=== PATIENT | male | born 1960 | race Caucasian/White ===

== ENCOUNTER 2022-06-16 11:23 | Outpatient (CLI) | payer BC, SELFPAY ==
[2022-06-16 21:34] LABS: Chloride* 86 mmol/L (96-114); Potassium* 5.7 mmol/L (3.6-5.1); Sodium* 126 mmol/L (135-149)
[2022-06-16 21:36] LABS: Cholesterol* 165 mg/dL (90-199)
[2022-06-16 21:37] LABS: Alanine Aminotransferase* 32 U/L (4-50); Alkaline Phosphatase* 68 U/L (40-150); Aspartate Amino Transferase* 39 U/L (12-35); Bilirubin Total* 0.9 mg/dL (0.1-1.5); Blood Urea Nitrogen* 12 mg/dL (7-30); Carbon Dioxide* 30 mmol/L (20-32); Creatinine* 0.6 mg/dL (0.5-1.5); Estimated Glomerular Filt Rate 111 ml/min; Glucose* 89 mg/dL (60-115); Total Protein* 7.7 g/dL (6.0-8.3); Triglycerides* 71 mg/dL (40-149)
[2022-06-16 21:38] LABS: Calcium* 9.6 mg/dL (8.4-10.6); HDL Cholesterol* 75 mg/dL (>=40); LDL Cholesterol Calculated 76 mg/dL (<100)
[2022-06-16 22:05] LABS: PSA Screen* 0.78 ng/mL (0.10-4.00)
[2022-06-16 22:10] LABS: TSH With Reflex to FT4* 0.318 uIU/mL (0.270-4.200)
[2022-06-16 22:22] LABS: Vitamin B12* 742 pg/mL (243-894)
== END 2022-06-16 11:24 | disposition home or self-care (01) ==
PROVIDERS: PCP Physician Assistant Medical; Visit Provider Physician Assistant Medical
DX: E03.9 Hypothyroidism, unspecified (principal); E78.5 Hyperlipidemia, unspecified; F32.A Depression, unspecified; I10 Essential (primary) hypertension; N40.0 Benign prostatic hyperplasia without lower urinary tract symptoms; R41.3 Other amnesia; Z12.5 Encounter for screening for malignant neoplasm of prostate
CPT/HCPCS: 80053; 80061; 82607; 84153; 84443

== ENCOUNTER 2022-07-22 07:53 | Outpatient (CLI) | payer BC, SELFPAY ==
[2022-07-22 14:25] LABS: Chloride* 101 mmol/L (96-114); Sodium* 140 mmol/L (135-149)
[2022-07-22 14:28] LABS: Carbon Dioxide* 33 mmol/L (20-32); Creatinine* 0.6 mg/dL (0.5-1.5); Estimated Glomerular Filt Rate 111 ml/min
[2022-07-22 14:29] LABS: Blood Urea Nitrogen* 10 mg/dL (7-30); Calcium* 9.1 mg/dL (8.4-10.6); Glucose* 79 mg/dL (60-115)
== END 2022-07-22 07:54 | disposition home or self-care (01) ==
PROVIDERS: PCP Physician Assistant Medical; Visit Provider Physician Assistant Medical
DX: E87.1 Hypo-osmolality and hyponatremia (principal)
CPT/HCPCS: 80048

== ENCOUNTER 2022-08-03 20:56 | Emergency (ER) | payer BC, SELFPAY ==
[2022-08-03 21:12] VITALS: BP 172/105; PULSE 82; RESP 16; TEMP 37.4; O2SAT 97; BMI 28.7
--- NOTE | 2022-08-03 21:50 | CRLHL7_ITS ---
For Patients: As a result of the Century Cures Act, medical imaging exams and procedure reports are released immediately into your electronic medical record. You may view this report before your referring provider. If you have questions, please contact your health care provider. Indication: Left forearm pain. Technique: Ultrasound venous duplex upper left extremity. Compression venous exam was performed using tucker-scale, color Doppler, and spectral Doppler imaging. Comparison: None. Findings/impression: The left internal jugular, subclavian, and axillary veins are patent with normal waveforms. The brachial, basilic, and cephalic veins are fully compressible. Within the intramuscular aspect of the likely brachioradialis, there is a 3.8 x 1.6 x 2.0 heterogeneous echogenic focus without discrete associated vascularity. This is indeterminate however leading differential considerations favor intramuscular hematoma, while other differential considerations include phlegmonous change. An aggressive approach would be to perform further evaluation with dedicated non emergent MSK protocol MRI mildly more conservative approach would be to perform clinical follow-up to assess for improving pain and sonographic reimaging to insure resolution. Dictated by Moise Rowley MD @ 08/04/2022 12:25:20 AM (Electronically Signed)
[2022-08-03 22:21] LABS: Chloride* 99 mmol/L (96-114); Potassium* 4.1 mmol/L (3.6-5.1); Sodium* 137 mmol/L (135-149)
[2022-08-03 22:24] LABS: Basophils Absolute Auto 0.04 K/uL (0.00-0.30); Basophils Percent Auto 0.5 % (0.0-3.0); Blood Urea Nitrogen* 11 mg/dL (7-30); Carbon Dioxide* 32 mmol/L (20-32); Creatinine* 0.6 mg/dL (0.5-1.5); Eosinophils Absolute Auto 0.17 K/uL (0.00-0.50); Est. Creatinine Clearance* 135.19; Estimated Glomerular Filt Rate 111 ml/min; Glucose* 101 mg/dL (60-115); Hematocrit 40.4 % (37.0-53.0); Hemoglobin* 14.1 gm/dL (13.5-17.5); Immature Granulocytes Abs Auto 0.05 K/uL (0.00-0.30); Immature Granulocytes Pct Auto 0.6 %; Lymphocytes Percent Auto 11.9 % (20-44); Mean Corpuscular HGB Conc 35 gm/dL (32-36); Mean Corpuscular Hemoglobin 31 pg (26-34); Mean Corpuscular Volume 87 fL (80-100); Monocytes Percent Auto 10.6 % (0.0-11.0); Neutrophils Percent Auto 74.4 % (42.0-72.0); Platelet Count* 280 K/uL (140-440); RDW Coefficient of Variation % 12.4 % (11.5-15.5); Red Blood Count 4.62 m/uL (4.30-5.90); White Blood Count* 8.37 K/uL (4.50-11.00)
[2022-08-03 22:25] LABS: Calcium* 9.2 mg/dL (8.4-10.6); Slide Review Reflex No
--- NOTE | 2022-08-03 22:50 | ED_ITS ---
HPI - General Adult General Chief complaint: Extremity Pain/Injury, Upper Stated complaint: Possible blood clot in L arm Time Seen by Provider: 08/03/22 21:50 History of Present Illness HPI narrative: Pt is a 62 year old gentleman who presents with pain and echymosis over the left anterior forearm. Pt remembers no trauma. He has no history of blood clots. No shortness of breath. No bony stiffness. No skin erythema. Pain is dull and mild. Pt's area of echymosis has been present for the past 2 days and is 4X4 cm in diameter. No treatments prior to arrival. Pt also remarks that he has chronic ankle swelling for the past several months. Worse at night. He states that his provider is aware of this and that it is not an acute problem. Related Data Home Medications Medication Instructions Recorded Confirmed aspirin 81 mg tablet,delayed 81 mg PO QDAY 03/03/22 08/03/22 release Previous Rx's Medication Instructions Recorded levothyroxine 125 mcg tablet 125 mcg PO QDAY #90 tabs 05/20/22 simvastatin 20 mg tablet 20 mg PO QPM #90 tabs 05/20/22 fluoxetine 20 mg capsule 20 mg PO QDAY #90 caps 06/16/22 amlodipine 5 mg tablet 5 mg PO QDAY #90 tabs 07/10/22 lisinopril 30 mg tablet 30 mg PO QDAY #90 tabs 07/21/22 metoprolol succinate 25 mg 25 mg PO QDAY #30 tabs 07/24/22 tablet,extended release 24 hr Allergies Allergy/AdvReac Type Severity Reaction Status Date / Time No Known Allergies Allergy Unknown Verified 08/03/22 21:17 Review of Systems Status of ROS: Reports: 10 or more systems reviewed and unremarkable except as noted in History and below [facility] Medical History 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) Diverticulitis of intestine (11/09/12) Surgical History History of bilateral inguinal hernia repair (11/10/12) History of colonoscopy History of hernia repair History of knee surgery History of lobectomy of lung History of spinal surgery Social History (Updated 06/11/22 @ 12:36 by Pauline Abdi) Narrative: Does not use illicit drugs Former smoker Rarely consumes alcohol Smoking Status: Former smoker Second hand tobacco smoke exposure: No How often do you have a drink containing alcohol: 2-3 times a week How many standard drinks containing alcohol do you have on a typical day: 5 or 6 AUDIT-C Alcohol total score: 5 Non-prescribed substance use: denies use Little interest or pleasure in doing things: not at all Feeling down, depressed, or hopeless: not at all Exam Narrative: Exam Narrative: EXAM GENERAL: Patient appears comfortable and well. EYES: No scleral icterus. ENT: Tympanic membranes and oropharynx normal. THYROID: no thyroid nodules or thyromegaly. LYMPH: No supraclavicular or cervical lymphadenopathy. SKIN: Visible skin seen during exam normal or with benign process only. EXT: Trace lower extremity edema noted. Area of echymosis noted in the anterior forearm on the left as described above no other acute findings. Good circulation no neuromuscular defects. HEART: Regular rate and rhythm with no murmurs, rubs, or gallops. LUNGS: Clear to auscultation bilaterally with no crackles or wheezes. ABD: Soft, non tender, non distended. PSYCH: Good eye contact, speech is not pressured. Const: Vital Signs, click to edit/add: Vital Signs - 24 hr 08/03/22 21:12 08/04/22 00:19 Temperature 99.3 F Pulse Rate [Right Pulse Oximeter] 82 70 Respiratory Rate 16 16 Blood Pressure [Ri ght Upper Arm] 172/105 H 147/10 H Pulse Oximetry 97 95 Oxygen Delivery Me thod Room Air Course Course Hospital Course: Venous ultrasound. CBC, BMP ordered. Reevaluation(s) Reevaluation #1: CBC BMP reviewed by me are reassuring. Venous Ultrasound showed no DVT but likely a hematoma. Follow up clinically or by MRI recommended by radiology. Time: 00:31 Vital Signs Vital signs: Initial Vital Signs Temperature 99.3 F 08/03/22 21:12 Temperature Source Temporal Artery Scan 08/03/22 21:12 Pulse Rate 82 08/03/22 21:12 Respiratory Rate 16 08/03/22 21:12 Blood Pressure 172/105 H 08/03/22 21:12 Blood Pressure Mean 127 08/03/22 21:12 Blood Pressure Position Sitting 08/03/22 21:12 Pulse Oximetry 97 08/03/22 21:12 Oxygen Delivery Method 08/03/22 21:12 Vital Signs Temperature 99.3 F 08/03/22 21:12 Pulse Rate 82 08/03/22 21:12 Respiratory Rate 16 08/03/22 21:12 Blood Pressure 172/105 H 08/03/22 21:12 Pulse Oximetry 97 08/03/22 21:12 Oxygen Delivery Method 08/03/22 21:12 Temperature 99.3 F 08/03/22 21:12 Pulse Rate 70 08/04/22 00:19 Respiratory Rate 16 08/04/22 00:19 Blood Pressure 147/10 H 08/04/22 00:19 Pulse Oximetry 95 08/04/22 00:19 Oxygen Delivery Method 08/03/22 21:12 Medical Decision Making MDM Narrative Medical decision making narrative: Pt is a 62 year old gentleman who presents with an area of bruising and echymosis in his left forearm. Labs reassuring. Venous Ultrasound shows no DVT but likely a hematoma. PCP follow up with possible MRI recommended. Exam shows mild lower extremity edema as well which is chronic. Pt's exam and vitals otherwise normal. PCP follow up. Lab Data Labs: Lab Results 08/03/22 08/03/22 Range/Units 22:01 22:01 WBC 8.37 (4.50-11.00) K/uL RBC 4.62 (4.30-5.90) m/uL Hgb 14.1 (13.5-17.5) gm/dL Hct 40.4 (37.0-53.0) % MCV 87 (80-100) fL MCH 31 (26-34) pg MCHC 35 (32-36) gm/dL RDW Coeff of Frances 12.4 (11.5-15.5) % Plt Count 280 (140-440) K/uL Neut % (Auto) 74.4 H (42.0-72.0) % Lymph % (Auto) 11.9 L (20-44) % [place] % (Auto) 10.6 (0.0-11.0) % Eos % (Auto) 2.0 (0.0-7.0) % Baso % (Auto) 0.5 (0.0-3.0) % Neut # (Auto) 6.20 (1.7-7.0) K/uL Lymph # (Auto) 1.00 (0.90-2.90) K/uL [place] # (Auto) 0.90 (0.00-0.90) K/UL Eos # (Auto) 0.17 (0.00-0.50) K/uL Baso # (Auto) 0.04 (0.00-0.30) K/uL Sodium 137 (135-149) mmol/L Potassium 4.1 (3.6-5.1) mmol/L Chloride 99 (96-114) mmol/L Carbon Dioxide 32 (20-32) mmol/L BUN 11 (7-30) mg/dL Creatinine 0.6 (0.5-1.5) mg/dL Estimated Creat Clear 135.19 Estimated GFR 111 ml/min Glucose 101 (60-115) mg/dL Calcium 9.2 (8.4-10.6) mg/dL Discharge Plan Discharge Clinical Impression: Hematoma Condition: Stable Instructions: Hematoma (ED) Additional Instructions: Warm compresses Tylenol as needed Primary care follow up with MRI if symptoms do not improve. Activity Level: No Restrictions Discharge Diet: Regular Prescriptions: No Action fluoxetine 20 mg capsule 20 mg PO QDAY Qty: 90 3RF aspirin 81 mg tablet,delayed release (DR/EC) 81 mg PO QDAY levothyroxine 125 mcg tablet 125 mcg PO QDAY Qty: 90 0RF simvastatin 20 mg tablet 20 mg PO QPM Qty: 90 0RF amlodipine 5 mg tablet 5 mg PO QDAY Qty: 90 3RF lisinopril 30 mg tablet 30 mg PO QDAY Qty: 90 0RF metoprolol succinate 25 mg tablet extended release 24 hr 25 mg PO QDAY Qty: 30 0RF Follow Up/Referrals: Elin Peterson PA-C [Primary Care Provider] - Stand Alone Forms: MyHealth Info Instructions
[2022-08-04 00:19] VITALS: BP 147/10; PULSE 70; RESP 16; O2SAT 95
== END 2022-08-04 00:44 | disposition home or self-care (01) ==
PROVIDERS: Emergency Provider Internal Medicine; PCP Physician Assistant Medical
DX: S50.12XA Contusion of left forearm, initial encounter (principal)
CPT/HCPCS: 36415; 80048; 85025; 93971; 99283; 99284

== ENCOUNTER 2022-08-07 13:44 | Outpatient (CLI) | payer BC, SELFPAY | END 2022-08-07 13:45 | disposition home or self-care (01) | LOC: RAD 13:44 | PROVIDERS: PCP Physician Assistant Medical; Visit Provider Internal Medicine | DX: I77.810 Thoracic aortic ectasia (principal) | CPT/HCPCS: 93306 ==

== ENCOUNTER 2023-06-01 08:01 | Outpatient (CLI) | payer BC, SELFPAY | END 2023-06-01 08:02 | disposition home or self-care (01) | LOC: NFLDREF 06-03 16:43 | PROVIDERS: PCP Physician Assistant Medical; Referring Provider Physician Assistant Medical; Visit Provider Physician Assistant Medical | DX: E03.9 Hypothyroidism, unspecified (principal); E78.5 Hyperlipidemia, unspecified; I10 Essential (primary) hypertension; F32.A Depression, unspecified | CPT/HCPCS: 80053; 80061; 84443 ==

== ENCOUNTER 2023-09-16 13:22 | Outpatient (CLI) | payer BC, SELFPAY ==
--- OUTSIDE RECORDS SUMMARY | 2023-09-16 13:24 | XMS_ITS | Referral Summary ---
Author Name Unknown Organization [facility] Address [address] [place] [address] Care Team Providers Care Car Wash Manager Name Role Phone Gerardonovember Primary Care Provider Trupti Denton MD Unavailable Encounters Date Type Department Care Team Description 09/15/2023 Telephone [facility] [address] [address] Trupti Denton MD 08/11/2023 MyC Medical Advice [facility] [address] [address] Ayden Roberson 07/09/2023 Travel from Last 3 Months Allergies Active Allergy Reactions Criticality Noted Date Comments No Known Drug Allergy 05/11/2011 Medications Medication Sig Dispensed Refills Start Date End Date Status lisinopril (PRINIVIL,ZESTRIL) 20 MG tablet Take 20 mg by mouth daily. 0 Active simvastatin (ZOCOR) 20 MG tablet Take by mouth At Bedtime. 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 Overview: Added automatically from request for surgery [id number] Cancer of base of tongue 09/14/2011 Head and neck cancer 10/13/2010 Social History Tobacco Use Types Packs/Day Years Used Date Smoking Tobacco: Former Cigarettes 0 5 Cigars Smokeless Tobacco: Never Tobacco Cessation:Counseling Given: No Comments:very light smoker Alcohol Use Standard Drinks/Week Comments Yes 0 (1 standard drink = 0.6 oz pur e alcohol) PHQ-2 Answer Date Recorded PHQ-2 Score 0 01/13/2022 Adolescent Education Answer Date Record ed Getting School Help Needed Not on file 05/11 Sex and Gender Information Value Date Recorded Sex Assigned at Male 11/25/2021 4:45 PM CDT Gender Identity Male 11/25/2021 4:45 PM CDT Sexual Orientation Straight 11/25/2021 4: 45 PM CDT Last Filed Vital Signs Vital Sign Reading Time Taken Comments Blood Pressure 166/106 06/01/2022 1:01 PM CDT Pulse 94 06/01/2022 1:01 PM CDT Temperature 36.7 ??C (98 ??F) 01/20/2022 11:54 AM CDT Respiratory Rate 16 06/01/2022 1:01 PM CDT Oxygen Saturation 98% 06/01/2022 1:01 PM CDT Inhaled Oxygen Concentration - - Weight 93.7 kg (206 lb 9.6 oz) 06/01/2022 1:01 P M CDT Height 177.8 cm (5' 10) 06/01/2022 1:01 PM CDT Body Mass Index 29.64 06/01/2022 1:01 PM CDT Plan of Treatment Upcoming Encounters Date Type Department Care Team (Late st Contact Info) Description 03/14/2024 2:30 PM CDT Office Visit [facility] [address] 4[address] [place] [address] Trupti Denton MD [address] [place] [address] Care Teams Car Wash Manager Relationship Specialty Start Date End Date November [place] [id number] [facility] [address] [place], [place] [id number] PCP - General 01/12/11 Trupti Denton MD [address] [place] [address] Assigned Surgical Provider 02/07/22
--- OUTSIDE RECORDS SUMMARY | 2023-09-16 13:24 | XMS_ITS | Continuity of Care Document ---
Author Name Unknown Organization [facility] Address [address] [place] [address] Phone Care Team Providers Care Human Resources Project Coordinator Name Role Phone Yanelis SHEFFIELD, Carmen Unavailable Unavailable Allergies, Adverse Reactions, Alerts Substance Reaction Status Criticality No Known Allergies Active No Inform ation Medications Medication Instructions Dosage Effective Dates (start - stop) Status Comments AMLODIPINE BESYLATE (unknown strength) Not Available - Active FLUOXETINE HCL (unknown strength) Not Available - Active LEVOTHYROXINE SODIUM (unknown strength) Not Available - Active HYDROCHLOROTHIAZIDE (unknown strength) Not Available - Active ASPIRIN (unknown strength) Not Available - Active SIMVASTATIN (unknown strength) Not Available - Active LISINOPRIL (unknown strength) Not Available - Active CARVEDILOL (unknown strength) Not Available - Active FUROSEMIDE (unknown strength) Not Available - Active Procedures Procedure Date Office/Outpatient Visit,Est, Mod 2023 Office/Outpatient Visit,Est, Low 2022 ACDF - Anterior Cervical Discectomy and Fusion - PA ACDF - Additonal Level - PA Anterior Instrumentation, 2-3 Segments - PA ACDF - Anterior Cervical Discectomy and Fusion ACDF - Additonal Level(s) Anterior Instrumentation, 2-3 Segments O Allograft, Structural Office/Outpatient Visit,New, Mod 2022 Advance Directives Directive Yes / No Effective Date File Name No Information Encounters Encounter Description Practice Location Reason(s) For Visit Diagnoses Date Provider Providers Copied on Encounter [facility], [address], [place], [place], [id number], [place] tel:[phone] No Information 4 Mehbod Amir. [facility], [address], [place], [place], [id number] , [place]. [phone] Office/Outpat ient Visit,Est, Mod [facility], [address], [place], [place], [id number], [place] tel:[phone] [facility] Spinal stenosis, cervical region 4 Mehbod Amir. [facility], [address], [place], [place], [id number] , [place]. [phone] Referring Provider: Moshe Ortiz [facility] [place], [address]. tel:[phone] Office/Outpat ient Visit,Est, Low [facility], [address], [place], [place], [id number], [place] tel:[phone] [facility] Spinal [facility], cervical region 3 Mehbod Amir. [facility], [address], [place], [place], [id number] , [place]. tel:[phone] Referring Provider: Moshe Ortiz [facility] [place], [address]. tel:[phone] [facility], [address], [place], [place], [address], [place] tel:[phone] [facility] No Information 3 Ning Carpenter. [address] [place] [address], [place], [place], [address] , [place]. tel:[phone] Referring Provider: Moshe Ortiz [facility] [place], [address]. tel:[phone] [facility], [address], [place], [id number], [place] tel:[phone] [facility] No Information 3 Mehbod Amir. [facility], [address], [place], [place], [id number] , [place]. tel:[phone] Referring Provider: Moshe Ortiz [facility] [address] [facility], [place], [address]. tel:[phone] Office/Outpat ient Visit,New, Mod [facility], [address], [place], [id number], [place] tel:[phone] [facility] Spinal stenosis, cervical region Apr- 3 Mehbod Amir. [facility], [address], [place], [place], [address] , [place]. tel:[phone] Referring Provider: Moshe Ortiz [facility] [address] [facility], [place], [address]. tel:[phone] Family History Family Member Type Diagnosis Age At Onset No Information Payers Payer name Insurance type Covered green party ID Authorfausto white(s) [facility] [address] [facility] [id number] Social History Type Description Quantity Date Captured Comments Sex Male Smoking Status No Information Chief Complaint And Reason For Visit No Information Reason For Referral Reason For Referral No Information Plan Of Treatment Date Type Action Status Appointment Moise Stone BOOKED History Of Present Illness Encounter Date Complaint History Of Prese nt Illness No Information Functional Status Date Functional Assessmen t No Information Instructions Date Instruction Additional Infor mation No Information Assessments Type Assessment Date No Information Patient Care Teams Name Effective Dates (start - stop) Status Members No Information
--- OUTSIDE RECORDS SUMMARY | 2023-09-16 13:24 | XMS_ITS | Encounter Summary ---
Author Name Unknown Organization [facility] Address [address] [place] [address] Care Team Providers Care Learning Coordinator Name Role Phone November Primary Care Provider [phone] Trupti Denton MD Unavailable Encounter Details Date Type Department Care Team (Latest Contact Info) Description 07/09/2023 Travel Social History Tobacco Use Types Packs/Day Years Used Date Smoking Tobacco: Former Cigarettes 0 5 Cigars Smokeless Tobacco: Never Comments:very light smoker Alcohol Use Standard Drinks/Week [...] Orientation Straight 11/25/2021 4: 45 PM CDT documented as of this encounter Plan of Treatment Upcoming Encounters Date Type Department Care Team (Late st Contact Info) Description 03/14/2024 2:30 PM CDT Office Visit [facility] [address] [place] [address] Trupti Denton MD [address] [place] [address] documented as of this encounter Visit Diagnoses Not on filedocumented in this encounter Care Teams Learning Coordinator Relationship Specialty Start Date End Date JohnNovember [facility] [address] [place] [address] PCP - General 01/12/11 Trupti Denton MD [address] [place] [address] Assigned Surgical Provider 02/07/22 documented as of this encounter
--- OUTSIDE RECORDS SUMMARY | 2023-09-16 13:24 | XMS_ITS | Clinical Summary ---
Author Name Unknown Organization [facility] Address [address] [place] [address] Care Team Providers Care Diversified Crops Ii Farmworker Name Role Phone November Primary Care Provider [phone] Trupti Denton MD Unavailable Allergies Active Allergy Reactions Criticality Noted Date [...] Overview: Added automatically from request for surgery [id number] Cancer of base of tongue 09/14/2011 Head and neck cancer 10/13/2010 Encounters Date Type Department Care Team Description 09/15/2023 Telephone [facility] [place] [address] [address] Trupti Denton MD 08/11/2023 MyC Medical Advice [place] [facility] [address] [address] Ayden Roberson 07/09/2023 Travel from Last 3 Months Family History Medical History Relation Comments Cancer Father Cancer Mother Hypertension Paternal Grandmother Relation Status Comments Father Mother Paternal Grandmother Social History Tobacco Use Types Packs/Day Years [...] Description 03/14/2024 2:30 PM CDT Office Visit [place] [facility] [address] [address] Trupti Denton MD [address] [place] [address] Health Maintenance Due Date Last Done Comments ADVANCE CARE PLANNING 1962 ANNUAL REVIEW OF HM ORDERS [address] CT COLONOGRAPHY 1962 FIT 1962 FLEX SIG 1962 sDNA (Cologuard) 1962 HIV SCREENING 1977 HEPATITIS C SCREENING 1980 LIPID 07/07/2009 07/07/2008 ZOSTER IMMUNIZATION (1 of 2) 2012 TSH W/FREE T4 REFLEX 03/08/2014 03/08/2013, 09/14/2012, 02/29/2012, Additional history exists LUNG CANCER SCREENING 03/04/2016 03/04/2015 , 08/31/2011, 01/12/2011, Additional history exists GLUCOSE 03/08/2016 03/08/2013, /01/2013, 02/29/2012, Additional history exists RSV VACCINE ( & 60+) (1 - 1-dose 60+ series) 2022 YEARLY PREVENTIVE VISIT 01/19/2023 01/19/2022 COVID-19 Vaccine ( season) 2023 07/04/2022, 07/15/2021, 11/16/2020, Additional history exists INFLUENZA VACCINE (#1) 2023 , 06/16/2021, 05/19/2016, Additional history exists PHQ-2 (once per calendar year) 2023 01/13/2022, 11/26/2021, 01/22/2021 DTAP/TDAP/TD IMMUNIZATION (4 - Td or Tdap) 04/19/2029 04/19/2019, 04/19/2019, 11/15/2008 COLONOSCOPY 04/24/2032 04/24/2022 COLORECTAL CANCER SCREENING 04/24/2032 HPV IMMUNIZATION Aged Out No longer e ligible based on patient's age to complete this topic IPV IMMUNIZATION Aged Out No longer e ligible based on patient's age to complete this topic MENINGITIS IMMUNIZATION Aged Out No l onger eligible based on patient's age to complete this topic Pneumococcal Vaccine: Pediatrics (0 to 5 Years) and At-Risk Patients (6 to 64 Years) Aged Out No longer eligible based on patient's age to complete this topic RSV MONOCLONAL ANTIBODY Aged Out No l onger eligible based on patient's age to complete this topic Care Teams Diversified Crops Ii Farmworker Relationship Specialty Start Date End Date November [facility] [address] [place], [place] [address] PCP - General 01/12/11 Trupti Denton MD [address] [place] [address] Assigned Surgical Provider 02/07/22
--- OUTSIDE RECORDS SUMMARY | 2023-09-16 13:24 | XMS_ITS | Encounter Summary ---
Author Name Unknown Organization [facility] Address [address] [place] [address] Care Team Providers Care Network Firewall Engineer Name Role Phone November Primary Care Provider [phone] Trupti Denton MD Unavailable Encounter Details Date Type Department Care Team (Late Contact Info) Description 08/11/2023 MyC Medical Advice [facility] [address] [place] [phone] Ayden Roberson Social History Tobacco Use Types Packs/Day Years [...] Encounters Date Type Department Care Team (Late Contact Info) Description 03/14/2024 2:30 PM CDT Office Visit [facility] [address] [place] [phone] Trupti Denton MD [address] [place] [address] documented as of this encounter Visit Diagnoses Not on filedocumented in this encounter Care Teams Network Firewall Engineer Relationship Specialty Start Date End Date November [address] [place] [address] PCP - General 01/12/11 Trupti Denton MD [address] [place] [address] Assigned Surgical Provider 02/07/22 documented as of this encounter
--- OUTSIDE RECORDS SUMMARY | 2023-09-16 13:24 | XMS_ITS | Clinical Summary ---
Author Name Unknown Organization [facility] Address [place], [place] [address] Care Team Providers Care Strap Folding Machine Operator Name Role Phone Clemente John MD Primary Care Provider [phone] Allergies No known active allergies Medications Medication Sig Dispensed Refills Start Date End Date Status aspirin (ECOTRIN) 81 mg enteric coated tablet Take 81 mg by mouth once daily with a meal. 0 Active FLUoxetine (PROZAC) 20 mg capsuleIndications:A nxiety and depression Take 1 Capsule (20 mg) by mouth once daily. 90 Capsule 0 01/19/2022 Active levothyroxine (SYNTHROID) 125 mcg tabletIndications:Hy pothyroidism, unspecified type Take 1 Tablet (125 mcg) by mouth once daily. 90 Tablet 0 01/19/2022 Active Additional Information Patient taking differently:125 mcg OralBEDTIME, Reported on 06/04/2023 simvastatin (ZOCOR) 20 mg tabletIndications:Hy perlipidemia, unspecified hyperlipidemia type Take 1 Tablet (20 mg) by mouth at bedtime. 90 Tablet 0 01/19/2022 Active amLODIPine (NORVASC) 2.5 mg tabletIndications:HT N (hypertension) Take 1 Tablet (2.5 mg) by mouth once daily. 90 Tablet 3 08/17/2022 Active carvediloL (Coreg) 3.125 mg tabletIndications:HT N (hypertension) Take 1 Tablet (3.125 mg) by mouth two times daily. 180 Tablet 3 08/17/2022 Active lisinopriL (PRINIVIL; ZESTRIL) 40 mg tabletIndications:HT N (hypertension) Take 1 Tablet (40 mg) by mouth once daily. 90 Tablet 3 08/17/2022 Active loratadine (Claritin) 10 mg tablet Take 10 mg by mouth once daily in the afternoon. 0 Active multivitamin folic acid 0.4 mg Take 1 Tablet by mouth once daily. 0 Active methocarbamoL (ROBAXIN) 750 mg tabletIndications:Ac saxman post-operative pain Take 1 Tablet (750 mg) by mouth every 6 hours if needed for Muscle Spasm. 30 Tablet 0 06/04/2023 Active sennosides-docusate (SENOKOT S) (8.6-50 mg) tabletIndications:Co nstipation due to opioid therapy Take 1 to 4 Tablets by mouth two times daily. 30 Tablet 0 06/04/2023 Active acetaminophen (TYLENOL EXTRA STRGTH) 500 mg tabletIndications:Ac saxman post-operative pain Take 2 Tablets (1,000 mg) by mouth every 6 hours if needed for Pain. Max acetaminophen dose: 4000mg in 24 hrs. 0 06/04/2023 Active oxyCODONE (ROXICODONE) 5 mg immediate release tabletIndications:Ac saxman post-operative pain Take 1 to 2 Tablets (5-10 mg) by mouth every 4 hours if needed for Pain (for severe pain.). 25 Tablet 0 06/04/2023 Active WalkerIndications:Ce rvical spinal stenosis Walker with front wheels for home use for 3 months. 1 Each 0 06/04/2023 Active Active Problems Problem Noted Date Diagnosed Date HTN (hypertension) 06/04/2023 Hyperlipemia 06/04/2023 Hypothyroidism 06/04/2023 Ascending aorta dilatation 12/02/2022 Bilateral lower extremity edema 12/02/2022 Cancer of base of tongue 01/19/2022 Encounters Date Type Department Care Team Description 09/14/2023 2:14 PM LEARNING SUPPORT TEACHER - 09/14/2023 11:59 PM LEARNING SUPPORT TEACHER Hospital Encounter [facility] [address] [facility] [address] [place], [place] [address] Carmen Hilario MD Bradshaw, Emily, PT Encounter for person encountering health services 09/14/2023 Travel 09/03/2023 Transcribe Orders [facility] - [address] [place] [address] [place] [address] Carmen Hilario MD 08/30/2023 12:19 PM LEARNING SUPPORT TEACHER - 08/30/2023 11:59 PM LEARNING SUPPORT TEACHER Hospital Encounter [address] [place] [address] Carmen Hilario MD Arthrodesis status 08/30/2023 Travel 08/19/2023 Orders Only [facility] [address] [place] [address] Carmen Hilario MD <No scans attached> 07/12/2023 12:01 PM LEARNING SUPPORT TEACHER - 07/12/2023 11:59 PM LEARNING SUPPORT TEACHER Hospital Encounter [address] [place] [address] Carmen Hilario MD Arthrodesis status 07/12/2023 Travel 07/06/2023 Orders Only [facility] [address], [place] [address] Carmen Hilario MD <No scans attached> from Last 3 Months Immunizations Name Administration Dates Next Due COVID-19 vaccine (Moderna 100mcg/0.5mL) JEANNE VAN 07/15/2021 COVID-19 vaccine (Pfizer-Bio NTech 30mcg/0.3mL) PF, MDV 11/16/2020,10/26/2020 Influenza RIV4 (Age 18+ Year s) PRESERV FREE 06/16/2022 Influenza, IIV3 (Age 6-35 mos) 05/15/2009 Influenza, IIV3 (Age >=3 years) 05/11/20 13,05/19/2012,06/04/2011, 010 Influenza, IIV4 06/16/2021 Td (Age >=7 Years) 04/19/2019 Tdap 11/15/2008 Social History Tobacco Use Types Packs/Day Years Used Date Smoking Tobacco: Former Cigarettes 0.2 7 1 - 05/09/2005 Smokeless Tobacco: Never Tobacco Cessation:Counseling Given: Yes Comments:Smoking History Packs/day: 0.25 Alcohol Use Standard Drinks/Week Comments Yes 0 (1 standard drink = 0.6 oz pur e alcohol) occasional PHQ-2 Answer Date Recorded PHQ-2 TOTAL SCORE 0 01/19/2022 Social Connections Answer Date Recorded Frequency of Communication with Friends and Fami ly 0 12/02/2022 Financial Resource Strain Answer Date R ecorded Difficulty of Paying Living Expenses 3 12/02/2022 Difficulty of Paying Living Expenses Not on file 12/02/2022 Food Insecurity Answer Date Recorded Worried About Running Out of Food in the Last Ye ar 1 12/02/2022 Transportation Needs Answer Date Record ed Lack of Transportation (Medical) 1 12/02/2022 Housing Stability Answer Date Recorded Unable to Pay for Housing in the Last Year 1 12/02/2022 Sex and Gender Information Value Date Recorded Sex Assigned at Not on file Gender Identity Not on file Sexual Orientation Not on file Obstetrics History Last Filed Vital Signs Vital Sign Reading Time Taken Comments Blood Pressure 148/93 06/05/2023 7:55 AM CDT Pulse 78 06/05/2023 7:55 AM CDT Temperature 36.6 ??C (97.9 ??F) 06/05/2023 8:55 AM CD T Respiratory Rate 18 06/05/2023 7:55 AM CDT Oxygen Saturation 94% 06/05/2023 8:55 AM CDT Inhaled Oxygen Concentration - - Weight 90.7 kg (200 lb) 06/04/2023 9:40 AM CDT Height 177.8 cm (5' 10) 06/04/2023 9:40 AM CDT Body Mass Index 28.7 06/04/2023 9:40 AM CDT Plan of Treatment Upcoming Encounters Date Type Department Care Team (Late st Contact Info) Description 09/21/2023 2:30 PM LEARNING SUPPORT TEACHER [facility]ointment [facility] [address] [place] [address] Devan Dickinson, PT [address] [facility] [address] [place] [address] 09/28/2023 1:45 PM LEARNING SUPPORT TEACHER Appointment [facility] [address] [place] [address] Devan Dickinson, PT [address] [facility] [address] [place] [address] 10/05/2023 2:00 PM LEARNING SUPPORT TEACHER Appointment [facility] [address] [facility] [address] [place] [address] Devan Dickinson, PT 101 14 [facility] [address] [place] [address] 10/12/2023 1:30 PM LEARNING SUPPORT TEACHER Appointment [facility] [address] [facility] [address] [place] [address] Devan Dickinson, PT [address] [address] Health Maintenance Due Date Last Done Comments HIV for age 15-65 1977 Hepatitis C screening for age 18-79 1980 Zoster (shingles) series for age 50+ (1 of 2) 2012 Depression screening for age 12+ 01/19/2023 01/19/2022 Influenza for age 50-64 04/09/2023 06/16/20, 06/16/2021, 05/11/2013, Additional history exists BMI (ht and wt on same day) for age 18+ 10/21/2023 10/20/2022, 01/19/2022 Lipids for age 45-75 01/19/2027 01/19/2022 Tetanus booster 04/19/2029 04/19/2019, 11/15/2008 Colonoscopy through age 75 04/24/203204/24, 04/24/2022, 04/24/2022 Tdap Completed 11/15/2008 COVID-19 vaccine series Completed 06/23/20 23, 07/04/2022, 07/15/2021, Additional history exists Pneumococcal series for age 6-64 Aged Out No longer eligible based on patient's age to complete this topic Medical Devices Implanted Type Area Broadcast Technician Device Identifier Shelf Expiration Date Model / Serial / Lot [id number] one Matrix 1cc [place] Plus Paste Dbm Implanted:Qty: 1 on 06/04/2023 by Carmen Hilario MD at [facility] N/A: Spine Medtronic Spine/Ortho 05/02/2025 [id number] / [id number] / Bone Cerv 7mm 4 Deg [place] W/P - [id number] Implanted:Qty: 1 on 06/04/2023 by Carmen Hilario MD at [facility] N/A: Spine [place] Spine 03/07/2028 [id number] / [id number] / Bone Cerv 7mm 4 Deg [place] W/P - [id number] Implanted:Qty: 1 on 06/04/2023 by Carmen Hilario MD at [facility] N/A: Spine Blanquita Spine 03/23/2028 [id number] / [id number] / Plate Cerv 34mm 2 Lvl Constrained [place] Ant Implanted:Qty: 1 on 06/04/2023 by Carmen Hilario MD at [facility] N/A: Spine [id number] / / Description:PLATE CERV 34MM 2 LVL CONSTRAINED OZARK ANT Screw Cerv 4.0x14mm Ant Slf Starting Variable [place] - [id number] Implanted:Qty: 6 on 06/04/2023 by Carmen Hilario MD at [facility] N/A: Spine [place] Spine [id number] / / Explanted Type Area Broadcast Technician Device Identifier Shelf Expiration Date Model / Serial / Lot Pin Fixation Coarse Thread [place] - [id number] Explanted:Qty: 1 on 06/04/2023 by Carmen Hilario MD at [facility] N/A: Spine [place] Spine [id number] / / Procedures Procedure Name Priority Date/Time Associated Diagnosis Comments XR SPINE CERVICAL 2 VIEWS Routine 08/30/2023 12:27 PM LEARNING SUPPORT TEACHER Arthrodesis status XR SPINE CERVICAL 2 VIEWS Routine 07/12/2023 12:15 PM LEARNING SUPPORT TEACHER Arthrodesis status from Last 3 Months Results * XR SPINE CERVICAL 2 VIEWS (08/30/2023 12:27 PM LEARNING SUPPORT TEACHER) Only the most recent of2 resultswithin the time period is included. Anatomical Region Laterality Modality CERVICAL SPINE Digital Radiogra phy 08/31/2023 8:15 AM LEARNING SUPPORT TEACHER Impressions 08/31/2023 8:15 AM LEARNING SUPPORT TEACHER 1. Anterior spinal fusion C5-C7 with anterior metallic bracket and intervening bone grafts are noted without change. Dictated by David Diallo MD @ 08/31/2023 8:15:13 AM Dictated by: David Diallo MD @ 08/31/2023 08:15:19 (Electronically Signed) Narrative 08/31/2023 8:15 AM LEARNING SUPPORT TEACHER For Patients: ??As a result of the Cures Act, medical imaging exams and procedure reports are released immediately into your electronic medical record. ??You may view this report before your referring provider. ??If you have questions, please contact your health care provider. INDICATION: Arthrodesis status TECHNIQUE: Cervical spine radiograph 2 views COMPARISON: 08/30/2023 FINDINGS: Bone: No acute fractures or aggressive bone lesions are identified. Mild kyphosis of the inferior cervical spine is noted without change. Disc: Anterior spinal fusion C5-C7 with anterior metallic bracket and intervening bone grafts are noted without change. The facet joints are unremarkable. Soft tissue: Unremarkable. No radiopaque foreign bodies are seen. Procedure Note David Diallo MD - 08/31/2023 For Patients: As a result of the Cures Act, medical imagingexams and procedure reports are released immediately into your electronicmedical record. You may view this report before your referring provider.If you have questions, please contact your health care provider. INDICATION: Arthrodesis status TECHNIQUE: Cervical spine radiograph 2 views COMPARISON: 08/30/2023 FINDINGS: Bone: No acute fractures or aggressive bone lesions are identified. Mildkyphosis of the inferior cervical spine is noted without change. Disc: Anterior spinal fusion C5-C7 with anterior metallic bracket andintervening bone grafts are noted without change. The facet joints areunremarkable. Soft tissue: Unremarkable. No radiopaque foreign bodies are seen. IMPRESSION: 1. Anterior spinal fusion C5-C7 with anterior metallic bracket andintervening bone grafts are noted without change. Dictated by David Diallo MD @ 08/31/2023 8:15:13 AM Dictated by: David Diallo MD @ 08/31/2023 08:15:19 (Electronically Signed) Carmen Hilario MD GENERAL IMAGING from Last 3 Months Advance Directives Latest Code Status on File Code Status Date Activated Date Inactivated Comments Full Code 06/04/2023 2:26 PM 06/05/2023 1:32 PM Question Answer Comments Code Status Discussion: Unable to Assess Preferences, Provider to review later Care Teams Strap Folding Machine Operator Relationship Specialty Start Date End Date Clemente John MD [address] [place] [address] PCP - General Family Practice 06/23/21
--- OUTSIDE RECORDS SUMMARY | 2023-09-16 13:24 | XMS_ITS | Encounter Summary ---
Author Name Unknown Organization [facility] Address [address] [place] [address] Care Team Providers Care Research Kennel Supervisor Name Role Phone November Primary Care Provider [phone] Trupti Denton MD Unavailable Encounter Details Date Type Department Care Team (Late Contact Info) Description 09/15/2023 Telephone [facility] [address] 4th [place] [address] Trupti Denton MD [address] [place] [address] Social History Tobacco Use Types Packs/Day Years [...] Description 03/14/2024 2:30 PM CDT Office Visit [facility] [address] 4th [place] [phone] Trupti Denton MD [address] [place] [address] documented as of this encounter Visit Diagnoses Not on filedocumented in this encounter Care Teams Research Kennel Supervisor Relationship Specialty Start Date End Date November [address] [place] [address] PCP - General 01/12/11 Trupti Denton MD [address] [place] [address] Assigned Surgical Provider 02/07/22 documented as of this encounter
--- OUTSIDE RECORDS SUMMARY | 2023-09-16 13:25 | XMS_ITS | Encounter Summary ---
Author Name Unknown Organization [facility] Address [address] [place] [address] Care Team Providers Care Correctional Medicine Physician Name Role Phone November Primary Care Provider Trupti Denton MD Unavailable Encounter Details Date Type Department Care Team (Latest Contact Info) Description 12/01/2022 Travel Social History Tobacco Use Types Packs/Day Years Used Date Smoking Tobacco: Former Cigarettes 0 5 Cigars Smokeless Tobacco: Never Comments:very light smoker Alcohol Use Standard Drinks/Week Comments Yes 0 (1 standard drink = 0.6 oz pur e alcohol) PHQ-2 Answer Date Recorded PHQ-2 Score 0 01/13/2022 Sex and Gender Information Value Date Recorded Sex Assigned at Male 11/25/2021 4:45 PM CDT Gender Identity Male 11/25/2021 4:45 PM CDT Sexual Orientation Straight 11/25/2021 4: 45 PM CDT COVID-19 Exposure Response Date Recorded In the last 10 days, have yo u been in contact with someone who was confirmed or suspected to have Coronavirus/COVID-19? No / Unsure 12/01/2022 10:48 AM CDT documented as of this encounter Plan of Treatment Upcoming Encounters Date Type Department Care Team (Late st Contact Info) Description 03/14/2024 2:30 PM CDT Office Visit [facility] [address]th [place] [address] Trupti Denton MD [address] [place] [address] documented as of this encounter Visit Diagnoses Not on filedocumented in this encounter Care Teams Correctional Medicine Physician Relationship Specialty Start Date End Date November [facility] [address] [place] [address] PCP - General 01/12/11 Trupti Denton MD [address] [place] [address] Assigned Surgical Provider 02/07/22 documented as of this encounter
--- OUTSIDE RECORDS SUMMARY | 2023-09-16 13:25 | XMS_ITS | Encounter Summary ---
Author Name Unknown Organization [facility] Address [address] [place] [address]. [place] [address] Care Team Providers Care Diet Counselor Name Role Phone November Primary Care Provider [phone] Trupti Denton MD Unavailable Encounter Details Date Type Department Care Team (Late Contact Info) Description 02/16/2023 MyC Medical Advice [facility] [address] [place] [address] Lupe Horner, NESHA Social History Tobacco Use Types Packs/Day Years [...] suspected to have Coronavirus/COVID-19? No / Unsure 02/15/2023 3:35 PM CDT documented as of this encounter Plan of Treatment Upcoming Encounters Date Type Department Care Team (Late Contact Info) Description 03/14/2024 2:30 PM CDT Office Visit [facility] [address]th [place] [phone] Trupti Denton MD [address] [place] [address] documented as of this encounter Visit Diagnoses Not on filedocumented in this encounter Care Teams Diet Counselor Relationship Specialty Start Date End Date November [address] [place] [address] PCP - General 01/12/11 Trupti Denton MD [address] [place] [address] Assigned Surgical Provider 02/07/22 documented as of this encounter
--- OUTSIDE RECORDS SUMMARY | 2023-09-16 13:25 | XMS_ITS | Encounter Summary ---
Author Name Unknown Organization [facility] Address [address] [place] [address] Care Team Providers Care Construction Job Cost Estimator Name Role Phone November Primary Care Provider Trupti Denton MD Unavailable Reason for Visit * Rehab Therapy Physical Therapy (Routine) - Authorized Specialty Diagnoses / Procedures Referred By Radha hodges Referred To Contact Physical Therapy Diagnoses Left leg weakness Weakness of right arm Cervical radiculopathy Other lesions of median nerve, bilateral upper limbs Chirag Casarez MD [facility] [place] [address] Referral ID Status Reason Start Date Expiration Date V isits Requested Visits Authorized [id number] Authorized 10/28/2022 10/28/2023 30 30 Encounter Details Date Type Department Care Team (Latest Contact Info) Description 12/01/2022 11:00 AM CDT Therapy Visit [facility] [address] [facility] [address] [place] [address] Michael Ching, PT [facility] [address] [place] [address] Left leg weakness (Primary Dx); Weakness of right arm; Cervical radiculopathy; Other lesions of median nerve, bilateral upper limbs Social History Tobacco Use Types Packs/Day Years [...] Description 03/14/2024 2:30 PM CDT Office Visit [facility] [address] [place] [address] Trupti Denton MD [address] [place] [address] documented as of this encounter Procedures Procedure Name Priority Date/Time Associated Diagnosis Comments NM THERAPEUTIC EXERCISES. EA 15 MIN Routine 12/01/2022 11:11 AM CDT Left leg weakness Weakness of right arm Cervical radiculopathy Other lesions of median nerve, bilateral upper limbs NM MECHANICAL TRACTION THERAPY Routine 12/01/2022 11:11 AM CDT Left leg weakness Weakness of right arm Cervical radiculopathy Other lesions of median nerve, bilateral upper limbs documented in this encounter Visit Diagnoses Diagnosis Left leg weakness- Primary Other musculoskeletal symptoms referable to limbs Weakness of right arm Other musculoskeletal symptoms referable to limbs Cervical radiculopathy Brachial neuritis or radiculitis nos Other lesions of median nerve, bilateral upper limbs documented in this encounter Care Teams Construction Job Cost Estimator Relationship Specialty Start Date End Date November [place] [address] [place] [address] PCP - General 01/12/11 Trupti Denton MD [address] [place] [address] Assigned Surgical Provider 02/07/22 documented as of this encounter
--- OUTSIDE RECORDS SUMMARY | 2023-09-16 13:25 | XMS_ITS | Encounter Summary ---
Author Name Unknown Organization [facility] Address [address] [place] [address] Care Team Providers Care Driver License Reviewing Officer Name Role Phone November Primary Care Provider Trupti Denton MD Unavailable Encounter Details Date Type Department Care Team (Latest Contact Info) Description 11/26/2022 Travel Social History Tobacco Use Types Packs/Day [...] suspected to have Coronavirus/COVID-19? No / Unsure 11/26/2022 11:16 AM CDT documented as of this encounter Plan of Treatment Upcoming Encounters Date Type Department Care Team (Late st Contact Info) Description 03/14/2024 2:30 PM CDT Office Visit [facility] [address]th [place] [address] Trupti Denton MD [address] [place] [address] documented as of this encounter Visit Diagnoses Not on filedocumented in this encounter Care Teams Driver License Reviewing Officer Relationship Specialty Start Date End Date November [facility] [address] [place] [address] PCP - General 01/12/11 Trupti Denton MD [address] [place] [address] Assigned Surgical Provider 02/07/22 documented as of this encounter
--- OUTSIDE RECORDS SUMMARY | 2023-09-16 13:25 | XMS_ITS | Encounter Summary ---
Author Name Unknown Organization [facility] Address [address] [place] [address] Care Team Providers Care Silk Printer Name Role Phone November Primary Care Provider [phone] Trupti Denton MD Unavailable Reason for Visit * Rehab Therapy Physical Therapy (Routine) - Authorized Specialty Diagnoses / Procedures Referred By Radha hodges Referred To Contact Physical Therapy Diagnoses Left leg weakness Weakness of right arm Cervical radiculopathy Other lesions of median nerve, bilateral upper limbs Chirag Casarez MD [facility] [place] [address] Referral ID Status Reason Start Date Expiration Date V isits Requested Visits Authorized [id number] Authorized 10/28/2022 10/28/2023 30 30 Encounter Details Date Type Department Care Team (Latest Contact Info) Description 11/05/2022 3:50 PM CDT Therapy Visit [facility] [address] [place] [address] Michael Ching, PT [facility] [address] [place] [address] Left leg weakness; Weakness of right arm; Cervical radiculopathy; Other [...] suspected to have Coronavirus/COVID-19? No / Unsure 11/05/2022 3:23 PM CDT documented as of this encounter Progress Notes * MiguelMichael crenshaw, PT - 11/05/2022 3:50 PM CDT Answers for HPI/ROS submitted by the patient on 11/02/2022 Reason for Visit:: Physical Therapy Order - Cervical radiculopathy (ICD-723.4) (BIS21-V37.12) OtherLesions of medical nerve, bilateral upper limbs ([id number]) How problem occurred:: Unknown Number scale: 2/10 General health as reported by patient: fair, good Please check all that apply to your current or past medical history: cancer Medical allergies: none Medications you are currently taking: anti-depressants, high blood pressure medication, thyroid medication What are your primary job tasks: computer work, prolonged sitting [facility] Initial Evaluation Floor Tiling Professional Present: no Subjective: Moise Stone is a 62 year old male with complaints of neck, leg weakness . Pt reports thathe's been having weakness/numbness tingling in the right arm without known injury for a few years without known cause. No pain with this, also has numbness in the left leg at times. Denies vague symptoms. Wants to get rid of these symptoms and improve overall function. Symptoms commenced as a result of: unsure. Condition occurred in the following environment: unsure.Onset of symptoms: 2-3 years ago. Location of symptoms: right trap/shoulder down into the right shoulder. Pain level on number scale: 0/10. Quality of pain: none. Associated symptoms: numbness/tingling, right arm weakness. Pain frequency (constant/intermittent): constant. Symptoms are exacerbated by: lifting, reaching. Symptoms are relieved by: none. Progression of symptoms since onset: same/worse. Imaging: Yes. Previous treatment: none. Response to previous treatment: none. General health as reported by patient is fair. Pertinent medical history includes: See Epic. Medical allergies: see Epic. Other pertinent surgeries: see Epic. Current medications: See Epic. 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 Primary job tasks: sitting, computer work. Barriers at home/work: None reported bypatient. Red flags: None reported by patient. Objective Posture: forward head, rounded shoulders Screening: negative shoulder but 4-/5ER R vs 5/5 ER L Flexibility: unremarkable Cervical Movement Response Flexion Near full pulling Retraction Moderately limited no change with repeated motion Extension Slightly liimted Rotation Left Slightly limited Rotation Right Moderately limited Lateral Flexion Right Moderately limited Lateral Flexion Left Slightly limited Neurological Myotomes L R C4 (shoulder elevation) 5 5/5 C5 (shoulder abduction) 4-/5 5/5 C6 (elbow flexion) /5 5/5 C7 (elbow extension) 12/11/5 C8 (thumb extension) 12/11/5 T1 (finger add/abd) /12/11 Sensory: C5 hyposensitive R Reflexes Biceps L 1+ and R1+, Brachioradialis L 1+ and R 1+, Triceps L 1+ and R 1+ Nerve Testing Median Nerve testing + Median nerve right Stability/CAD testing: negative Palpation: unremarkable Accessory Motion: hypomobile without change in symptoms or pain C2-C7 CPA and elina UPA Other Tests: Manual traction no change but neck feels good overall [place] Findings Chronic right arm numbness/tingling with + Cervical radiculopathy tests, will trial PT program to improve pain and symptoms. Assessment/Plan: Patient is a 62 year old male with cervical complaints. Patient has the following significant findings with corresponding treatment plan. Diagnosis 1: Right arm numbness/weakness, Possible Cervical radiculopathy right Pain - manual therapy, self management, education and home program Decreased ROM/flexibility - manual therapy and therapeutic exercise Decreased joint mobility - manual therapy and therapeutic exercise Decreased strength - therapeutic exercise and therapeutic activities Impaired muscle performance - neuro re-education Decreased function - therapeutic activities Impaired posture - neuro re-education Therapy Evaluation Codes: 1) History comprised of: Personal factors that impact the plan of care: Time since onset of symptoms. Comorbidity factors that impact the plan of care are: Cancer, Depression and High blood pressure. Medications impacting care: Anti-depressant and High blood pressure. 2) Examination of Body Systems comprised of: Body structures and functions that impact the plan of care: Cervical spine and Shoulder. Activity limitations that impact the plan of care are: Cooking, Driving, Dressing, Lifting, Reading/Computer work, Sitting and Sports. 3) Clinical presentation characteristics are: Stable/Uncomplicated. 4) Decision-Making Low complexity using standardized patient assessment instrument and/or measureable assessment of functional outcome. Cumulative Therapy Evaluation is: Low complexity. Previous and current functional limitations: (See Goal Flow Sheet for this information) Short term and intermediate teacher goals: (See Goal Flow Sheet for this information) Communication ability: Patient appears to be able to clearly communicate and understand verbal and written communication and follow directions correctly. Treatment Explanation - The following has been discussed with the patient: RX ordered/plan of care Anticipated outcomes Possible risks and side effects This patient would benefit from PT intervention to resume normal activities. Rehab potential is fair. Frequency: 1 X week, once daily Duration: for 10 weeks Discharge Plan: Achieve all LTG. Independent in home treatment program. Reach maximal therapeutic benefit. Please refer to the daily flowsheet for treatment today, total treatment time and time spent performing 1:1 timed codes. Inquires Michael Ching PT, DPT, CSCS Physical Therapist [facility] [address], [address] [id number] documented in this encounter Plan of Treatment Upcoming Encounters Date Type Department Care Team (Late st Contact Info) Description 03/14/2024 2:30 PM CDT Office Visit [facility] [address] 4th [place] [address] Trupti Denton MD [address] [place] [address] documented as of this encounter Procedures Procedure Name Priority Date/Time Associated Diagnosis Comments IL NEUROMUSCULAR REEDUCATION,1+ AREAS, EA 15 MIN Routine 11/05/2022 5:13 PM CDT Left leg weakness Weakness of right arm Cervical radiculopathy Other lesions of median nerve, bilateral upper limbs IL THERAPEUTIC EXERCISES. EA 15 MIN Routine 11/05/2022 5:13 PM CDT Left leg weakness Weakness of right arm Cervical radiculopathy Other lesions of median nerve, bilateral upper limbs documented in this encounter Visit Diagnoses Diagnosis Left leg weakness Other musculoskeletal symptoms referable to limbs Weakness of right arm Other musculoskeletal symptoms referable to limbs Cervical radiculopathy Brachial neuritis or radiculitis nos Other lesions of median nerve, bilateral upper limbs documented in this encounter Care Teams Silk Printer Relationship Specialty Start Date End Date November [facility] [address] [place] [address] PCP - General 01/12/11 Trupti Denton MD [address] [place] [address] Assigned Surgical Provider 02/07/22 documented as of this encounter
--- OUTSIDE RECORDS SUMMARY | 2023-09-16 13:25 | XMS_ITS | Encounter Summary ---
Author Name Unknown Organization [facility] Address [address] [place] [address] Care Team Providers Care Sports Book Server Name Role Phone November Primary Care Provider Trupti Denton MD Unavailable Encounter Details Date Type Department Care Team (Latest Contact Info) Description 11/05/2022 Travel Social History Tobacco Use Types Packs/Day [...] [facility] [address] [place] [address] Trupti Denton MD [address] [place] [address] documented as of this encounter Visit Diagnoses Not on filedocumented in this encounter Care Teams Sports Book Server Relationship Specialty Start Date End Date November [facility] [address] [place] [address] PCP - General 01/12/11 Trupti Denton MD [address] [place] [address] Assigned Surgical Provider 02/07/22 documented as of this encounter
--- OUTSIDE RECORDS SUMMARY | 2023-09-16 13:25 | XMS_ITS | Encounter Summary ---
Author Name Unknown Organization [facility] Address [address] [place] [address] Care Team Providers Care Material Chaser Name Role Phone November Primary Care Provider Trupti Denton MD Unavailable Encounter Details Date Type Department Care Team (Latest Contact Info) Description 01/08/2023 Travel Social History Tobacco Use Types Packs/Day [...] suspected to have Coronavirus/COVID-19? No / Unsure 01/08/2023 1:47 PM CDT documented as of this encounter Plan of Treatment Upcoming Encounters Date Type Department Care Team (Late st Contact Info) Description 03/14/2024 2:30 PM CDT Office Visit [facility] [address]th [place] [address] Trupti Denton MD [address] [place] [address] documented as of this encounter Visit Diagnoses Not on filedocumented in this encounter Care Teams Material Chaser Relationship Specialty Start Date End Date November [facility] [address] [place] [address] PCP - General 01/12/11 Trupti Denton MD [address] [place] [address] Assigned Surgical Provider 02/07/22 documented as of this encounter
--- OUTSIDE RECORDS SUMMARY | 2023-09-16 13:25 | XMS_ITS | Encounter Summary ---
Author Name Unknown Organization [facility] Address [address] [place] [address] Care Team Providers Care Livestock Farmers Name Role Phone November Primary Care Provider Trupti Denton MD Unavailable Encounter Details Date Type Department Care Team (Latest Contact Info) Description 02/15/2023 Travel Social History Tobacco Use Types Packs/Day [...] Description 03/14/2024 2:30 PM CDT Office Visit [facility] [address]th [place] [address] Trupti Dentno MD [address] [place] [address] documented as of this encounter Visit Diagnoses Not on filedocumented in this encounter Care Teams Livestock Farmers Relationship Specialty Start Date End Date November [facility] [address] [place] [address] PCP - General 01/12/11 Trupti Denton MD [address] [place] [address] Assigned Surgical Provider 02/07/22 documented as of this encounter
--- OUTSIDE RECORDS SUMMARY | 2023-09-16 13:25 | XMS_ITS | Encounter Summary ---
Author Name Unknown Organization [facility] Address [address] [place] [address] Care Team Providers Care Keysmith Name Role Phone November Primary Care Provider [phone] Trupti Denton MD Unavailable Reason for Visit * Rehab Therapy Speech Therapy (Routine) - Closed Specialty Diagnoses / Procedures Referred By Radha hodges Referred To Contact Speech Language/Path / Speech Therapy Diagnoses 6 month FEES follow up Procedures FEES EVAL Tona Jenkins, KAN STONE [address] [address] Referral ID Status Reason Start Date Expiration Date V isits Requested Visits Authorized [facility]-DIRECTOR OF PERIOPERATIVE SERVICES([id number]) Closed 12/25/2022 08/08/2023 365 365 Encounter Details Date Type Department Care Team (Late st Contact Info) Description 01/08/2023 2:15 PM CDT Therapy Visit [facility] [address]th [place] [address] Tona Jenkins, KAN STONE [address] [phone] Oropharyngeal dysphagia (Primary Dx) Social History Tobacco Use Types Packs/Day Years [...] as of this encounter Progress Notes * Tona Jenkins, DIRECTOR OF PERIOPERATIVE SERVICES - 01/08/2023 2:15 PM CDT SPEECH LANGUAGE PATHOLOGY EVALUATION Evaluation completed 01/08/23 See electronic medical record for Abuse and Falls Screening details. Subjective Presenting condition or subjective complaint: Pt presents with continued dysphagia. He reports minimal change in swallowing function. 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 He had VFSS on 12/19/21 with mild to moderate oropharyngeal dysphagia characterized by reduced oropharyngeal strength ROM/ and Prominent CP bar with questionable web below bar. He underwent esophageal dilation on 01/20/22 and returned for follow up on02/03/22. He participated in FEES and was found to have ongoing mild to moderate oropharyngeal dysphagia with pt reporting subjective improvement. He again participated in endoscopic swallow evaluation on 06/01/22. He was found to have continued mild to moderate oropharyngeal dysphagia. He was to continue exercises and return for repeat swallow evaluation in about 6 months. Unfortunately, he has been sick so it has been a little longer, but he is here today for reevaluation. He reports feeling like eating is going about the same as it was before. He notes his reports he is coughing/choking less. Pt denies completion of his exercises consistently since last visit. Prior therapy history for the same diagnosis, illness or injury: Yes Living Environment Social support: With a significant other or spouse Patient goals for therapy: Swallow with greater ease Pain assessment: Pain denied Objective SWALLOW EVALUTION Dysphagia history: Pt reports trouble with swallowing solids and sometimes liquids. He reports his has noticed a decline in frequency of coughing. He feels swallowing has remained about the same. Current Diet/Method of Nutritional Intake: oral diet, thin liquids (level 0), easy to chew (level 7) FIBEROPTIC ENDOSCOPIC EVALUATION OF SWALLOWING (FEES) Type of Scope: adult Scope Serial Number: [facility] V[facility] ENF [id number] Nares Entry/Passage: nostril entered using no topical anesthetic, scope passed through left nares Anatomical Findings: impaired vocal fold abduction Velar Elevation: WFL Lateral Pharyngeal Wall Contraction: reduced Secretions at onset of evaluation: valleculae, pyriforms FEES Textures Trialed: FEES Eval: Thin Liquids Mode of Presentation: straw Pre-Spillage: to valleculae Epiglottic Inversion: incomplete Initiation of Pharyngeal Swallow: delayed Base of Tongue Retraction: reduced Pharyngeal Constriction: reduced Penetration: yes Aspiration: not observed Patient Response to Aspiration: not applicable Post swallow residuals: valleculae, pyriforms FEES Eval: Purees Mode of Presentation: spoon, self-fed Pre-Spillage: none Epiglottic Inversion: incomplete Initiation of Pharyngeal Swallow: delayed Base of Tongue Retraction: reduced Pharyngeal Constriction: reduced Penetration: not observed Aspiration: not observed Patient Response to Aspiration: not applicable Post swallow residuals: valleculae, pyriforms FEES Eval: Solids Mode of Presentation: self-fed Pre-Spillage: none Epiglottic Inversion: incomplete Initiation of Pharyngeal Swallow: timely Base of Tongue Retraction: reduced Pharyngeal Constriction: reduced Penetration: not observed Aspiration: not observed Patient Response to Aspiration: not applicable Post swallow residuals: valleculae, pyriforms ESOPHAGEAL PHASE OF SWALLOW no observed or reported concerns related to esophageal function SWALLOW ASSESSMENT CLINICAL IMPRESSIONS AND RATIONALE Diet Consistency Recommendations: thin liquids (level 0), easy to chew (level 7) Recommended Feeding/Eating Techniques: alternate food and liquid intake, effortful (hard) swallow Medication Administration Recommendations: Whole with liquid or puree Instrumental Assessment Recommendations: repeat FEES in 1 year for ongoing assessment of swallow function and to monitor changes in airway safety Assessment & Plan CLINICAL IMPRESSIONS Medical Diagnosis: Oropharyngeal dysphagia Treatment Diagnosis: oropharyngeal dysphagia Impression/Assessment: Overall, pt demonstrates stable dysphagia. He is better able to demonstrate airway protection and manage pharyngeal residue with sips of liquid. He demonstrates penetration on thin liquid but no aspiration was seen. He is able to clear penetrated material from the laryngeal vestibule independently. He demonstrates residue on thicker consistencies but clears with sips of liquid. Pt will follow up with Dr. Denton in a few weeks. Consider repeat FEES in ~1 year to monitor for changes in swallow function. PLAN OF CARE Evaluation only Recommended Referrals to Other Professionals: Pt to follow up with Dr. Denton for airway assessment as previously scheduled Education Assessment: Learner/Method: Patient;Listening;Pictures/Video Risks and benefits of evaluation/treatment have been explained. Patient/Family/caregiver agrees with Plan of Care. Evaluation Time: DIRECTOR OF PERIOPERATIVE SERVICES Eval: Flexible Fiberoptic Endoscopic Evaluation of Swallowing by Cine or Video Recording Minutes (50494): 25 Force Adjustment Supervisor Present: Not applicable Signing Clinician: KAN Jones documented in this encounter Plan of Treatment Upcoming Encounters Date Type Department Care Team (Late st Contact Info) Description 03/14/2024 2:30 PM CDT Office Visit [facility] [address] [phone] Trupti Denton MD [address] [place] [address] documented as of this encounter Procedures Procedure Name Priority Date/Time Associated Diagnosis Comments IMAGESTREAM RECORDING ORDER Routine 01/08/2023 3:10 PM CDT Oropharyngeal dysphagia documented in this encounter Results * IMAGESTREAM RECORDING ORDER (01/08/2023 3:10 PM CDT) 01/08/2023 3:10 PM CDT Tona OMER OTHER RADIOLOGY RESULTS documented in this encounter Visit Diagnoses Diagnosis Oropharyngeal dysphagia- Primary Dysphagia, oropharyngeal phase documented in this encounter Care Teams Keysmith Relationship Specialty Start Date End Date November [place] [address] [place] [address] PCP - General 01/12/11 Trupti Denton MD [address] [place] [address] Assigned Surgical Provider 02/07/22 documented as of this encounter
--- OUTSIDE RECORDS SUMMARY | 2023-09-16 13:25 | XMS_ITS | Encounter Summary ---
Author Name Unknown Organization [facility] Address [address] [place] [address] Care Team Providers Care Manager Quality Systems Name Role Phone November Primary Care Provider Trupti Denton MD Unavailable Encounter Details Date Type Department Care Team (Latest Contact Info) Description 01/07/2023 Travel Social History Tobacco Use Types Packs/Day [...] suspected to have Coronavirus/COVID-19? No / Unsure 12/08/2022 9:33 AM CDT documented as of this encounter Plan of Treatment Upcoming Encounters Date Type Department Care Team (Late st Contact Info) Description 03/14/2024 2:30 PM CDT Office Visit [facility] [address]th [place] [address] Trupti Denton MD [address] [place] [address] documented as of this encounter Visit Diagnoses Not on filedocumented in this encounter Care Teams Manager Quality Systems Relationship Specialty Start Date End Date November [facility] [address] [place] [address] PCP - General 01/12/11 Trupti Denton MD [address] [place] [address] Assigned Surgical Provider 02/07/22 documented as of this encounter
--- OUTSIDE RECORDS SUMMARY | 2023-09-16 13:25 | XMS_ITS | Encounter Summary ---
Author Name Unknown Organization [facility] Address [address] [place] [address]. [place] [address] Care Team Providers Care Manager Administrative Name Role Phone November Primary Care Provider [phone] Trupti Denton MD Unavailable Encounter Details Date Type Department Care Team (Late st Contact Info) Description 12/24/2022 Telephone [facility] [address] [place] [address] Coretta Yanez LPN Social History Tobacco Use Types Packs/Day Years [...] AM CDT documented as of this encounter Miscellaneous Notes * Telephone Encounter - Coretta Yanez LPN - 12/24/2022 12:02 PM CDT Left message for patient in regards to rescheduling appt on 02/19 due to provider not available. Writers call back number provided on . documented in this encounter Plan of Treatment Upcoming Encounters Date Type Department Care Team (Late st Contact Info) Description 03/14/2024 2:30 PM CDT Office Visit [facility] [address] [place] [address] Trupti Denton MD [address] [place] [address] documented as of this encounter Visit Diagnoses Not on filedocumented in this encounter Care Teams Manager Administrative Relationship Specialty Start Date End Date [place] [address] [place] [address] PCP - General 01/12/11 Trupti Denton MD [address] [place] [address] Assigned Surgical Provider 02/07/22 documented as of this encounter
--- OUTSIDE RECORDS SUMMARY | 2023-09-16 13:25 | XMS_ITS | Encounter Summary ---
Author Name Unknown Organization [facility] Address [address] [place] [address] Care Team Providers Care Lobster Man Name Role Phone November Primary Care Provider [phone] Trupti Denton MD Unavailable Encounter Details Date Type Department Care Team (Latest Contact Info) Description 10/27/2022 Travel Social History Tobacco Use Types Packs/Day [...] suspected to have Coronavirus/COVID-19? No / Unsure 10/27/2022 1:40 PM CDT documented as of this encounter Plan of Treatment Upcoming Encounters Date Type Department Care Team (Late st Contact Info) Description 03/14/2024 2:30 PM CDT Office Visit [facility] [address] [place] [address] Trupti Denton MD [address] [place] [address] documented as of this encounter Visit Diagnoses Not on filedocumented in this encounter Care Teams Lobster Man Relationship Specialty Start Date End Date November [facility] [address] [place] [address] PCP - General 01/12/11 Trupti Denton MD [address] [place] [address] Assigned Surgical Provider 02/07/22 documented as of this encounter
--- OUTSIDE RECORDS SUMMARY | 2023-09-16 13:25 | XMS_ITS | Encounter Summary ---
Author Name Unknown Organization [place] Address [address] [place] [address] Care Team Providers Care Caustic Room Attendant Name Role Phone November Primary Care Provider [phone] Trupti Denton MD Unavailable Reason for Visit * Tests - Closed Specialty Diagnoses / Procedures Referred By Radha hodges Referred To Contact Occupational Therapy Diagnoses right hand, right arm, self referred, p/f Procedures HAND THERAPY EVAL Self, Referred, Samara Downing, ANGIER [address] [facility] EARLENE Hedrick [id number] Referral ID Status Reason Start Date Expiration Date Visits Re quested Visits Authorized [id number] Closed 10/27/2022 08/08/2023 30 30 Encounter Details Date Type Department Care Team (Latest Contact Info) Description 10/27/2022 2:00 PM CDT Therapy Visit [facility] [address] [place] [address] Samara Downing OTR [address] [facility] EARLENE Hedrick [address] Pain of right hand (Primary Dx) Social History Tobacco Use Types [...] as of this encounter Progress Notes * Samara Downing, OTR - 10/27/2022 2:00 PM CDT NOAM Hand Therapy Initial Evaluation Current Date: 10/27/2022 Diagnosis: Cervical radiculopathy, R arm weakness DOI: ~ 3 years Referring Provider: Dr. Leida Wang neuro clinic Subjective: Patient Health History Moise Stone being seen for Physical Therapy Evaluation. Problem occurred: Unknown Pain is reported as 1/10 on pain scale. General health as reported by patient is fair. Pertinent medical history includes: cancer, depression, high blood pressure, numbness/tingling, thyroid problems and weakness. Medical allergies: none. Current medications: Anti-depressants, cardiac medication, high blood pressure medication and thyroid medication. 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 Primary job tasks include: Computer work and prolonged sitting. Occupational Profile Information: Right hand dominant Prior functional level: no limitations Patient reports symptoms of pain, weakness/loss of strength, numbness and tingling Special tests: EMG Previous treatment: none Barriers include:none Mobility: No difficulty Transportation: drives Currently working in normal job without restrictions - standing desk, computer work Leisure activities/hobbies: outdoor activities in the summer, Other: picking things up, fine motor - buttons, writing Pt normally sleeps on R side with arm tucked under, he has been trying to switch over to his L. Functional Outcome Measure: Upper Extremity Functional Index Score: SCORE: Column Totals: 47/80: (A lower score indicates greater disability.) Objective: Posture Forward Neck Posture and Rounded Forward Shoulders Edema None Sensation c5-7 Decreased Median Nerve distribution per pt report ROM ROM Shoulder 10/27/2022 10/27/2022 AROM (PROM) L R Flexion 170 138 Elbow 10/27/2022 10/27/2022 AROM (PROM) L R Extension 0 0 Flexion 145 145 Wrist 10/27/2022 10/27/2022 AROM (PROM) L R Extension 70 70 Flexion 58 62 Supination 60 75 Pronation 90 90 Special Tests Pain Report: - none + mild ++ moderate +++ severe 10/27/2022 Median Nerve Compression at Pronator - Corona Test for Lumbrical Incursion (fist x 30 secs) + Tinels at Carpal Tunnel ++ Neural Tension Testing MNT: Median Neurodynamic Test (based on DS Bia's ULNT) 10/27/2022 0-5 Scale 4/5 Position: 0/5: Arm across abdomen in coronal plane 1/5: Depress shoulder, ER to neutral ABD shoulder to 45 degrees 2/5: ER shoulder to end range, keep elbow at 90 degrees 3/5: Extend elbow to 0 degrees 4/5: Fully supinate forearm 5/5: Extend wrist, fingers and thumb Notes: ??? (+) indicates beyond grade level but less than senior care to next level ??? (-) indicates over senior care to level ??? S1 onset/change of patient's symptoms ??? S2 definite stop point based on patient's discomfort level Strength (Measured in pounds) Pain Report: - none + mild ++ moderate +++ severe Certified Juvenile Probation Officer 10/27/2022 10/27/2022 Trials L R 1 2 3 100 65 Average Lat Pinch 10/27/2022 10/27/2022 Trials L R 1 2 3 Average 3 Pt Pinch 10/27/2022 10/27/2022 Trials L R 1 2 10 27 20 Average Resisted Testing MMT R UE Pain Report: - none + mild ++ moderate +++ severe 10/27/2022 Wrist flexors 4 Thumb flexion 4 Lumbricals 4 Assessment: Patient presents with symptoms consistent with diagnosis of right median neuropathy d/t cervical radiculopathy, w/ conservative intervention Patient's limitations or Problem List includes: Pain, Sensory disturbance, 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 Rehab Potential: Good - Return to full activity, some limitations Patient will benefit from skilled Occupational Therapy to increase overall strength, coordination and sensation and decrease pain to return to previous activity level and resume normal daily tasks and to reach their rehab potential. Barriers to Learning: No barrier Communication Issues: Patient appears to be able to clearly communicate and understand verbal and written communication and follow directions correctly. Chart Review: Chart Review and Simple history review with patient Identified Performance Deficits: bathing/showering, dressing, home establishment and management, meal preparation and cleanup, shopping, sleep and leisure activities Assessment of Occupational Performance: 5 or more Performance Deficits Clinical Decision Making (Complexity): Moderate complexity Treatment Explanation: The following has been discussed with the patient: RX ordered/plan of care Anticipated outcomes Possible risks and side effects Plan: Frequency: 1 X every other week, once daily Duration: for 12 weeks Treatment Plan: Therapeutic Exercise: AROM, Tendon Gliding, Isotonics and Isometrics Neuromuscular re-ed: Nerve Gliding and Coordination/Dexterity Manual Techniques: Joint mobilization and passive nerve gliding Orthotic Fabrication: Static Self Care: Self Care Tasks, Ergonomic Considerations and Work Tasks Discharge Plan: Achieve all LTG. Independent in home treatment program. Reach maximal therapeutic benefit. Home Exercise Program: Cervical Retraction Scapular Retraction/Depression Median Nerve Gliding Tendon Gliding Tabletop Gripping - green sponge Lumbrical pinch - green sponge Next Visit: Manual work for median nerve Formal coordination testing * Samara Downing OTR - 10/27/2022 2:00 PM CDT Discharge Summary - Hand Therapy Patient did not return to therapy. Assume all goals were met to patient's satisfaction. D/C from hand therapy. documented in this encounter Plan of Treatment Upcoming Encounters Date Type Department Care Team (Late st Contact Info) Description 03/14/2024 2:30 PM CDT Office Visit [facility] [address] [place] [address] Trupti Denton MD [address] [place] [address] documented as of this encounter Procedures Procedure Name Priority Date/Time Associated Diagnosis Comments OK OT EVAL, MODERATE COMPLEXITY Routine 10/27/2022 5:16 PM CDT Pain of right hand OK NEUROMUSCULAR REEDUCATION,1+ AREAS, EA 15 MIN Routine 10/27/2022 5:16 PM CDT Pain of right hand OK THERAPEUTIC EXERCISES. EA 15 MIN Routine 10/27/2022 5:16 PM CDT Pain of right hand documented in this encounter Visit Diagnoses Diagnosis Pain of right hand- Primary Pain in limb documented in this encounter Care Teams Caustic Room Attendant Relationship Specialty Start Date End Date November [facility] [address] [place] [address] PCP - General 01/12/11 Trupti Denton MD [address] [place] [address] Assigned Surgical Provider 02/07/22 documented as of this encounter
--- OUTSIDE RECORDS SUMMARY | 2023-09-16 13:25 | XMS_ITS | Encounter Summary ---
Author Name Unknown Organization [place] Address [address] [place] [address] Care Team Providers Care Sport Intern Name Role Phone November Primary Care Provider Trupti Denton MD Unavailable Reason for Visit * Rehab Therapy Physical Therapy (Routine) - Authorized Specialty Diagnoses / Procedures Referred By Radha hodges Referred To Contact Physical Therapy Diagnoses Left leg weakness Weakness of right arm Cervical radiculopathy Other lesions of median nerve, bilateral upper limbs Chirag Casarez MD [facility] [place] [address] Referral ID Status Reason Start Date Expiration Date V isits Requested Visits Authorized [id number] Authorized 10/28/2022 10/28/2023 30 30 Encounter Details Date Type Department Care Team (Latest Contact Info) Description 12/08/2022 9:40 AM CDT Therapy Visit [facility] [address] [place] [address] Michael Ching, PT [facility] [address] [place] [address] Left leg weakness (Primary Dx); Weakness of [...] as of this encounter Progress Notes * Michael Ching, PT - 12/08/2022 9:40 AM CDT PROGRESS REPORT Progress reporting period is from 11/05/22 to 12/08/22. SUBJECTIVE Subjective changes noted by patient: Subjective: Noel reports that things feel about the same overall, remains with numbness tingling in the right arm, maybe slighlty more motion in the right arm. Currently noticing quite a bit of numbness. Working on the exercises regularly. Will return to neurology and continue HEP Current pain level is 0/10 Current Pain level: 0/10. Previous pain level was 0/10 Initial Pain level: 0/10. Changes in function: Yes (See Goal flowsheet attached for changes in current functional level) Adverse reaction to treatment or activity: None OBJECTIVE Changes noted in objective findings: Yes, limited change in numbness/symptoms Objective: Cervical AROM: Flexion slighlty limited pulling, extension near full, SB moderately limited elina with some pulling, rotationg moderation elina, retraction moderately limited and with repeatedmotion no change. ASSESSMENT/PLAN Updated problem list and treatment plan: Diagnosis 1: Cervical radiculopathy right, numbness/weakness right arm Decreased ROM/flexibility - manual therapy and therapeutic exercise Decreased joint mobility - manual therapy and therapeutic exercise Decreased strength - therapeutic exercise and therapeutic activities Impaired muscle performance - neuro re-education Decreased function - therapeutic activities Impaired posture - neuro re-education STG/LTGs have been met or progress has been made towards goals: Yes (See Goal flow sheet completed today.) Assessment of Progress: The patient's progress has plateaued. The patient's condition is unchanged. The patient's progress has slowed. The patient has had set backs in their progress. The patient's condition has exacerbated. Self Management Plans: Patient has been instructed in a home treatment program. Patient has been instructed in self management of symptoms. I have re-evaluated this patient and find that the nature, scope, duration and intensity of the therapy is appropriate for the medical condition of the patient. Moise continues to require the following intervention to meet STG and LTG's: PT Recommendations: This patient would benefit from continued therapy. Frequency: 1 X a month, once daily Duration: for 1-2 months if status changes This patient would benefit from further evaluation. Return to neuro Please refer to the daily flowsheet for treatment today, total treatment time and time spent performing 1:1 timed codes. Inquires Michael Ching PT, DPT, CSCS Physical Therapist [facility] [address], [facility] [address] [place], [place] [id number] * Michael Ching PT - 12/08/2022 9:40 AM CDT Patient did not return for further treatment and no additional progress was noted. Please refer to the progress note and goal flowsheet completed on for discharge information. documented in this encounter Plan of Treatment Upcoming Encounters Date Type Department Care Team (Late st Contact Info) Description 03/14/2024 2:30 PM CDT Office Visit [facility] [address] [place] [address] Trupti Denton MD [address] [place] [address] documented as of this encounter Procedures Procedure Name Priority Date/Time Associated Diagnosis Comments MI THERAPEUTIC ACTIVITIES, EA 15 MIN Routine 12/08/2022 9:57 AM CDT Left leg weakness Weakness of [...] limbs documented in this encounter Care Teams Sport Intern Relationship Specialty Start Date End Date November [facility] [address] [place] [address] PCP - General 01/12/11 Trupti Denton MD [address] [place] [address] Assigned Surgical Provider 02/07/22 documented as of this encounter
--- OUTSIDE RECORDS SUMMARY | 2023-09-16 13:25 | XMS_ITS | Encounter Summary ---
Author Name Unknown Organization [place] Address [address] [place] [address] Care Team Providers Care Network Operations Manager Name Role Phone November Primary Care Provider Trupti Denton MD Unavailable Encounter Details Date Type Department Care Team (Late st Contact Info) Description 01/26/2023 Telephone [facility] [address] 4th [place] [address] Trupti Denton MD [address] [place] [address] Social History Tobacco Use Types Packs/Day [...] Description 03/14/2024 2:30 PM CDT Office Visit [facility] [address] [place] [phone] Trupti Denton MD [address] [place] [address] documented as of this encounter Visit Diagnoses Not on filedocumented in this encounter Care Teams Network Operations Manager Relationship Specialty Start Date End Date November [facility] [address] [facility] [place] [address] PCP - General 01/12/11 Trupti Denton MD [address] [place] [address] Assigned Surgical Provider 02/07/22 documented as of this encounter
--- OUTSIDE RECORDS SUMMARY | 2023-09-16 13:25 | XMS_ITS | Encounter Summary ---
Author Name Unknown Organization [place] Address [address] [place] [address] Care Team Providers Care Gas Jockey Name Role Phone November Primary Care Provider Trupti Denton MD Unavailable Encounter Details Date Type Department Care Team (Latest Contact Info) Description 12/08/2022 Travel Social History Tobacco Use Types Packs/Day [...] 03/14/2024 2:30 PM CDT Office Visit [facility] [address] [place] [address] Trupti Denton MD [address] [place] [address] documented as of this encounter Visit Diagnoses Not on filedocumented in this encounter Care Teams Gas Jockey Relationship Specialty Start Date End Date November [facility] [address] [place] [address] PCP - General 01/12/11 Trupti Denton MD [address] [place] [address] Assigned Surgical Provider 02/07/22 documented as of this encounter
--- OUTSIDE RECORDS SUMMARY | 2023-09-16 13:25 | XMS_ITS | Encounter Summary ---
Author Name Unknown Organization [place] Address [address] [place] [address] Care Team Providers Care Underwriting Analyst Name Role Phone November Primary Care Provider [phone] Trupti Denton MD Unavailable Encounter Details Date Type Department Care Team ([facility] Contact Info) Description 12/29/2022 MyC Medical Advice [facility] [address] [place] [address] [facility] Social History Tobacco Use Types Packs/Day Years [...] Description 03/14/2024 2:30 PM CDT Office Visit [facility] [address] 4th [place] [phone] Trupti Denton MD [address] [place] [address] documented as of this encounter Visit Diagnoses Not on filedocumented in this encounter Care Teams Underwriting Analyst Relationship Specialty Start Date End Date November [address] [place] [address] PCP - General 01/12/11 Trupti Denton MD [address] [place] [address] Assigned Surgical Provider 02/07/22 documented as of this encounter
--- OUTSIDE RECORDS SUMMARY | 2023-09-16 13:25 | XMS_ITS | Encounter Summary ---
Author Name Unknown Organization [place] Address [facility] [place] [address] Care Team Providers Care Emergency Medical Tech Name Role Phone November Primary Care Provider Trupti Denton MD Unavailable Reason for Referral * Rehab Therapy Physical Therapy (Routine) - Authorized Specialty Diagnoses / Procedures Referred By Radha hodges Referred To Contact Physical Therapy Diagnoses Left leg weakness Weakness of right arm Cervical radiculopathy Other lesions of median nerve, bilateral upper limbs Chirag Casarez MD [facility] [address] [place] [address] Referral ID Status Reason Start Date Expiration Date V isits Requested Visits Authorized [id number] Authorized 10/28/2022 10/28/2023 30 30 Question Answer Preferred Location: [facility] Scheduling Instructions: If you have not heard from the scheduling office within 2 business days, please call [phone] for Education Everytime, for Range and [phone] for [place]. Course of Action Evaluation and Treatment Adult or Pediatrics Adult Specialty Services: Per Associated Diagnosis Comments Please be aware that coverage of these services is subject to the terms and limitations of your health insurance plan. Call member services at your health plan with any benefit or coverage questions. If you have not heard from the scheduling office within 2 business days, please call [phone] for Education Everytime, for Range and [phone] for [place]. Encounter Details Date Type Department Care Team (Late st Contact Info) Description 10/28/2022 Transcribe Orders GENERIC EXTERNAL DATA DEPARTMENT Chirag Casarez MD [facility] [address] [place] [address] Left leg weakness (Primary Dx); Weakness of [...] [facility] [address] [place] [address] Trupti Denton MD [address] [place] [phone] Scheduled Referrals Name Type Priority Associated Diagnoses Orde r Schedule Physical Therapy Referral Referral Routine Left leg weakness Weakness of right arm Cervical radiculopathy Other lesions of median nerve, bilateral upper limbs Expected: 10/28/2022 (Approximate), Expires: 10/29/2023 documented as of this encounter Visit Diagnoses Diagnosis Left leg weakness- Primary Other musculoskeletal symptoms referable to limbs Weakness of right arm Other musculoskeletal symptoms referable to limbs Cervical radiculopathy Brachial neuritis or radiculitis nos Other lesions of median nerve, bilateral upper limbs documented in this encounter Care Teams Emergency Medical Tech Relationship Specialty Start Date End Date November [facility] [address] [place] [address] PCP - General 01/12/11 Trupti Denton MD [address] [place] [address] Assigned Surgical Provider 02/07/22 documented as of this encounter
--- OUTSIDE RECORDS SUMMARY | 2023-09-16 13:25 | XMS_ITS | Encounter Summary ---
Author Name Unknown Organization [place] Address [address] [place] [address] Care Team Providers Care Pharmacy Informatics Manager Name Role Phone November Primary Care Provider Trupti Denton MD Unavailable Encounter Details Date Type Department Care Team (Latest Contact Info) Description 12/07/2022 Travel Social History Tobacco Use Types Packs/Day [...] suspected to have Coronavirus/COVID-19? No / Unsure 12/07/2022 11:11 AM CDT documented as of this encounter Plan of Treatment Upcoming Encounters Date Type Department Care Team (Late st Contact Info) Description 03/14/2024 2:30 PM CDT Office Visit [facility] [address]th [place] [address] Trupti Denton MD [address] [place] [address] documented as of this encounter Visit Diagnoses Not on filedocumented in this encounter Care Teams Pharmacy Informatics Manager Relationship Specialty Start Date End Date November [facility] [address] [place] [address] PCP - General 01/12/11 Trupti Denton MD [address] [place] [address] Assigned Surgical Provider 02/07/22 documented as of this encounter
--- OUTSIDE RECORDS SUMMARY | 2023-09-16 13:25 | XMS_ITS | Encounter Summary ---
Author Name Unknown Organization [place] Address [address] [place] [address] Care Team Providers Care Wardrobe Specialty Worker Name Role Phone November Primary Care Provider Trupti Denton MD Unavailable Encounter Details Date Type Department Care Team (Latest Contact Info) Description 11/02/2022 Travel Social History Tobacco Use Types Packs/Day [...] suspected to have Coronavirus/COVID-19? No / Unsure 11/02/2022 10:33 AM CDT documented as of this encounter Plan of Treatment Upcoming Encounters Date Type Department Care Team (Late st Contact Info) Description 03/14/2024 2:30 PM CDT Office Visit [facility] [address]th [place] [address] Trupti Denton MD [address] [place] [address] documented as of this encounter Visit Diagnoses Not on filedocumented in this encounter Care Teams Wardrobe Specialty Worker Relationship Specialty Start Date End Date November [facility] [address] [place] [address] PCP - General 01/12/11 Trupti Denton MD [address] [place] [address] Assigned Surgical Provider 02/07/22 documented as of this encounter
--- OUTSIDE RECORDS SUMMARY | 2023-09-16 13:25 | XMS_ITS | Encounter Summary ---
Author Name Unknown Organization [place] Address [address] [place] [address] Care Team Providers Care Extrusion Supervisor Name Role Phone November Primary Care Provider Trupti Denton MD Unavailable Encounter Details Date Type Department Care Team (Latest Contact Info) Description 10/30/2022 Travel Social History Tobacco Use Types Packs/Day [...] Description 03/14/2024 2:30 PM CDT Office Visit [facility] [address] 4th [place] [address] Trupti Denton MD [address] [place] [address] documented as of this encounter Visit Diagnoses Not on filedocumented in this encounter Care Teams Extrusion Supervisor Relationship Specialty Start Date End Date November [facility] [address] [place] [address] PCP - General 01/12/11 Trupti Denton MD [address] [place] [address] Assigned Surgical Provider 02/07/22 documented as of this encounter
--- OUTSIDE RECORDS SUMMARY | 2023-09-16 13:26 | XMS_ITS | Encounter Summary ---
Author Name Unknown Organization [facility] Address [address] [place] [address] Care Team Providers Care Rn Radiology Name Role Phone November Primary Care Provider Trupti Denton MD Unavailable Encounter Details Date Type Department Care Team (Latest Contact Info) Description 10/21/2022 Travel Social History Tobacco Use Types Packs/Day [...] suspected to have Coronavirus/COVID-19? No / Unsure 10/21/2022 4:29 PM CDT documented as of this encounter Plan of Treatment Upcoming Encounters Date Type Department Care Team (Late st Contact Info) Description 03/14/2024 2:30 PM CDT Office Visit [facility] [address] 4[address] [place] [address] Trupti Denton MD [address] [place] [address] documented as of this encounter Visit Diagnoses Not on filedocumented in this encounter Care Teams Rn Radiology Relationship Specialty Start Date End Date November [facility] [address] [place] [address] PCP - General 01/12/11 Trupti Denton MD [address] [place] [address] Assigned Surgical Provider 02/07/22 documented as of this encounter
--- OUTSIDE RECORDS SUMMARY | 2023-09-16 13:26 | XMS_ITS | Encounter Summary ---
Author Name Unknown Organization [facility] Address [address] [place] [address] Care Team Providers Care Street Sweeper Operator Name Role Phone November Primary Care Provider [phone] Trupti Denton MD Unavailable Encounter Details Date Type Department Care Team (Late st Contact Info) Description 04/24/[address] [facility] [address] [address] Steven Walden RN Social History Tobacco Use Types Packs/Day Years [...] 2:30 PM CDT Office Visit [facility] [address] [address] Trupti Denton MD [address] [place] [address] [phone] documented as of this encounter Visit Diagnoses Not on filedocumented in this encounter Care Teams Street Sweeper Operator Relationship Specialty Start Date End Date November [facility] [address] [facility] [place] [address] PCP - General 01/12/11 Trupti Denton MD [address] [place] [address] Assigned Surgical Provider 02/07/22 documented as of this encounter
--- NOTE | 2023-09-16 14:00 | CRLHL7_ITS ---
For Patients: As a result of the Century Cures Act, medical imaging exams and procedure reports are released immediately into your electronic medical record. You may view this report before your referring provider. If you have questions, please contact your health care provider. Indication: Hemoptysis Technique: Post contrast CT chest. 75 cc Isovue 370 intravenous contrast. Please note that all CT scans at this facility use dose modulation, iterative reconstruction, and/or weight-based dosing when appropriate to reduce radiation dose to as low as reasonably achievable. Comparison: 06/23/2021 Findings: Postop changes right lower lobectomy. Stable appearance of the right infrahilar bronchovascular bundle. Parenchymal density within the periphery of the right lower lobe is chronic appearing. Mild secretions are present along the right lateral aspect of the trachea. No pneumothorax. Nodular densities are present within the left lower lobe measuring up to 9.8 millimeters in total. No fracture is present. Postop changes lower cervical spine. Chronic elevation right hemidiaphragm. Hypodense lesion within the right hepatic lobe is present with discontinuous peripheral enhancement measuring 4.5 cm. Simple cyst in the liver also present measuring 3 cm. Additional sub centimeters cyst within the dome of the liver. Remainder of the upper abdomen unremarkable. Impression: Ill-defined nodular densities are present within the left lower lobe, possibly inflammatory but recommend follow-up in 3 months for further evaluation. Stable postop changes of right lower lobectomy with chronic densities associated with the right infrahilar lung and right hilar/right perihilar bronchovascular bundle. Probable hemangioma within the right hepatic lobe measuring 4.5 cm. Right upper quadrant ultrasound recommended for further evaluation. Please note that all CT scans at this facility use dose modulation, iterative reconstruction, and/or weight-based dosing when appropriate to reduce radiation dose to as low as reasonably achievable. Dictated by Moise Go MD @ 09/17/2023 1:20:09 PM (Electronically Signed)
[2023-09-16 14:08] LABS: Creatinine* 0.7 mg/dL (0.5-1.5); Estimated Glomerular Filt Rate 105 ml/min
== END 2023-09-16 13:23 | disposition home or self-care (01) ==
LOC: CT 13:22
PROVIDERS: PCP Physician Assistant Medical; Visit Provider Physician Assistant Medical
DX: R04.2 Hemoptysis (principal); R91.1 Solitary pulmonary nodule
CPT/HCPCS: 36415; 71260; 82565; Q9967

== ENCOUNTER 2023-12-21 13:04 | Outpatient (CLI) | payer BC, SELFPAY ==
--- NOTE | 2023-12-21 13:00 | CT_ITS ---
Patient: ANUP FREEMAN Facility:?[facility] Patient ID:?[id number] Site Patient ID:?[id number]. Site :?[id number] Study:?CT-Chest WO-12/21/2023 2:23:27 PM Ordering Physician:NEHEMIAS Final Report: INDICATION: Hemoptysis. History of carcinoid tumor. History of tongue cancer. COMPARISON: None available. Reference is made to a prior report dated 06/23/2021. TECHNIQUE: CT of the chest without intravenous contrast. Please note that all CT scans at this facility use dose modulation, iterative reconstruction, and/or weight-based dosing when appropriate to reduce radiation dose to as low as reasonably achievable. FINDINGS: The study is performed without intravenous contrast. This limits the sensitivity of the exam for the detection vascular pathology including arterial thrombosis, dissection and pulmonary arterial embolism. Visualized Lower Neck: No lower cervical adenopathy. Mediastinum: Mid ascending thoracic aneurysm measuring 4.5 cm. Dilated pulmonary trunk measuring 3.8 cm. Moderate to severe multivessel atherosclerotic coronary artery calcification. Adherent aerosolized secretions in the right tracheal lumen. There is no mediastinal lymphadenopathy. Lungs and Pleura: Right lower lobectomy. Anteromedial basal segment left lower lobe atelectasis. Posterior right basilar pleural-based in the past he consistent with atelectasis or nonspecific fibrosis. No significant pleural effusion. No pneumothorax. Skeleton: No significant osseous findings. Incompletely imaged plate and screw fixation of the lower cervical spine C6-C7. Thoracic soft tissues: Unremarkable. No axillary adenopathy. Visualized Upper Abdomen: Incompletely characterized nonspecific intermediate density (29 HU) homogeneous circumscribed segment 7 lesion measuring 4.5 cm x 3.7 cm (2; 77). 2.7 cm segment 8 simple cyst. IMPRESSION: 1. No specific findings to explain hemoptysis. 2. Findings consistent with prior right lower lobectomy. Posterior right basilar pleural-based band opacity consistent with nonspecific fibrosis or atelectasis. Partial atelectasis of the anteromedial basal segment of the left lower lobe. 3. Incidental indeterminate incompletely characterize segment 7 lesion measuring 4.5 cm in greatest dimension. In this patient with a history of malignancy, further characterization is recommended (ideally with MRI although CT, liver mass protocol, could be performed instead). 4. Mid ascending thoracic aortic aneurysm. 5. Dilated pulmonary trunk consistent with pulmonary hypertension. RECOMMENDATION: MRI OR CT OF THE LIVER (LIVER MASS PROTOCOL, WITHOUT AND WITH INTRAVENOUS CONTRAST), unless the liver lesion described above has already been characterized. Please note that all CT scans at this facility use dose modulation, iterative reconstruction, and/or weight-based dosing when appropriate to reduce radiation dose to as low as reasonably achievable. Dictated by Josué Tanner MD @ 12/23/2023 7:34:34 AM Signed by:?Josué Tanner MD @12/23/2023 7:34:34 AM (Electronic Signature)
--- OUTSIDE RECORDS SUMMARY | 2023-12-21 13:07 | XMS_ITS | Encounter Summary ---
Author Name Unknown Organization [facility] Address [facility] [place] [address] Care Team Providers Care Molasses Preparer Name Role Phone November Primary Care Provider Trupti Denton MD Unavailable Reason for Visit * Reason Comments Urgent Care Hand laceration, cut ting down boxes in garage, left hand, pointer finger. Encounter Details Date Type Department Care Team (Late st Contact Info) Description 12/13/2023 6:10 PM CDT Office Visit [facility] [address] [place] [address] La Carty PA-C [facility] [address] [place] [address] Laceration of left hand without foreign body, initial encounter (Primary Dx) Social History Tobacco Use Types Packs/Day Years Used Date Smoking Tobacco: Former Cigarettes Cigars Smokeless Tobacco: Never Tobacco Cessation:Counseling Given: Not Answered Comments:very light smoker Alcohol Use Standard Drinks/Week [...] PM CDT documented as of this encounter Last Filed Vital Signs Vital Sign Reading Time Taken Comments Blood Pressure 186/122 12/13/2023 6:26 PM CDT Pulse 84 12/13/2023 6:26 PM CDT Temperature 37.4 ??C (99.3 ??F) 12/13/2023 6:26 PM CD T Respiratory Rate - - Oxygen Saturation 95% 12/13/2023 6:26 PM CDT Inhaled Oxygen Concentration - - Weight 86.2 kg (190 lb) 12/13/2023 6:26 PM CDT Height - - Body Mass Index 27.26 06/01/2022 1:01 PM CDT documented in this encounter Patient Instructions * Patient Instructions* La Carty PA-C - 12/13/2023 6:10 PM CDT Patient was educated on the natural course of injury. Keep wound dry and clean. Wash area with soapand water. Watch for signs of infection. Conservative measures discussed including [id number] as needed for pain. See your primary care provider in 10 days for suture removal or sooner as needed. Seek emergency care if you develop fever, streaking, severe pain or redness. documented in this encounter Progress Notes * La Carty PA-C - 12/13/2023 6:10 PM CDT URGENT CARE VISIT: SUBJECTIVE: Moise Stone is a 63 year old male who presents to the clinic with a laceration on the left hand sustained 1 hour(s) ago. This is a non-work related injury. Mechanism of injury: cutting boxes. Associated symptoms: Denies numbness, weakness, or loss of function Last tetanus booster within 10 years: yes OBJECTIVE: VITALS: BP (!) 186/122 Pulse 84 Temp 99.3 ??F (37.4 ??C) Wt 86.2 kg (190 lb) SpO2 95% BMI27.26 kg/m?? General: WDWN in NAD Size of laceration: 2 centimeters Location of laceration: left index finger Characteristics of the laceration: bleeding- mild Tendon function intact: yes Sensation to light touch intact: yes Pulses intact: yes ASSESSMENT: ICD-10-CM 1. Laceration of left hand without foreign body, initial encounter S61.412A REPAIR SUPERFICIAL, WOUND BODY < =2.5CM PLAN: PROCEDURE NOTE: Prepped and draped in the usual sterile fashion Wound cleaned with HIBICLENS Wound was locally injected with 3 cc's of Lidocaine 1% plain Laceration was closed using 3 4-0 nylon interrupted sutures Wound was dressed with gauze. Patient Instructions Patient was educated on the natural course of injury. Keep wound dry and clean. Wash area with soapand water. Watch for signs of infection. Conservative measures discussed including [id number] as needed for pain. See your primary care provider in 10 days for suture removal or sooner as needed. Seek emergency care if you develop fever, streaking, severe pain or redness. Patient verbalized understanding and is agreeable to plan. The patient was discharged ambulatory and in stable condition. La Carty PA-C .................... 12/13/2023 6:54 PM documented in this encounter Plan of Treatment Upcoming Encounters Date Type Department Care Team (Late st Contact Info) Description 03/14/2024 2:30 PM CDT Office Visit [facility] [address] [place] [phone] Trupti Denton MD [address] [place] [phone] documented as of this encounter Procedures Procedure Name Priority Date/Time Associated Diagnosis Comments [place] REPAIR SUPERFICIAL, WOUND BODY < =2.5CM Routine 12/13/2023 6:54 PM CDT Laceration of left hand without foreign body, initial encounter documented in this encounter Visit Diagnoses Diagnosis Laceration of left hand without foreign body, initial encounter- Primary documented in this encounter Care Teams Molasses Preparer Relationship Specialty Start Date End Date November [place] [address] [place] [address] PCP - General 01/12/11 Trupti Denton MD [address] [place] [address] Assigned Surgical Provider 02/07/22 documented as of this encounter
--- OUTSIDE RECORDS SUMMARY | 2023-12-21 13:07 | XMS_ITS | Encounter Summary ---
Author Name Unknown Organization [facility] Address [address] [place] [address]. [place] [address] Care Team Providers Care Magnet Valve Assembler Name Role Phone November Primary Care Provider Trupti Denton MD Unavailable Encounter Details Date Type Department Care Team (Late Contact Info) Description 02/16/2023 MyC Medical Advice [facility] [address] 4th [place] [address] Lupe Horner RN Social History Tobacco Use Types Packs/Day Years Used Date Smoking Tobacco: Former Cigarettes Cigars Smokeless Tobacco: Never Comments:very light smoker [...] [facility] [address] 4th [place] [phone] Trupti Denton MD [address] [place] [address] documented as of this encounter Visit Diagnoses Not on filedocumented in this encounter Care Teams Magnet Valve Assembler Relationship Specialty Start Date End Date November [address] [place] [address] PCP - General 01/12/11 Trupti Denton MD [address] [place] [address] Assigned Surgical Provider 02/07/22 documented as of this encounter
--- OUTSIDE RECORDS SUMMARY | 2023-12-21 13:07 | XMS_ITS | Encounter Summary ---
Author Name Unknown Organization [facility] Address [address] [place] [address] Care Team Providers Care Clinical Marketing Manager Name Role Phone November Primary Care Provider [phone] Trupti Denton MD Unavailable Encounter Details Date Type Department Care Team ([facility] Contact Info) Description 12/29/2022 MyC Medical Advice [facility] [address] [place] [address] [facility] Social History Tobacco Use Types Packs/Day Years [...] Description 03/14/2024 2:30 PM CDT Office Visit [facility] [address] [place] [phone] Trupti Denton MD [address] [place] [address] [phone] documented as of this encounter Visit Diagnoses Not on filedocumented in this encounter Care Teams Clinical Marketing Manager Relationship Specialty Start Date End Date November [address] [place] [address] PCP - General 01/12/11 Trupti Denton MD [address] [place] [address] [phone] Assigned Surgical Provider 02/07/22 documented as of this encounter
--- OUTSIDE RECORDS SUMMARY | 2023-12-21 13:07 | XMS_ITS | Encounter Summary ---
Author Name Unknown Organization [place] Address [address] [place] [address] Care Team Providers Care Supervisor Ship Maintenance Services Name Role Phone November Primary Care Provider Trupti Denton MD Unavailable Encounter Details Date Type Department Care Team (Latest Contact Info) Description 12/13/2023 Travel Social History Tobacco Use Types Packs/Day [...] [facility] [address] [place] [address] Trupti Denton MD [address] [place] [address] documented as of this encounter Visit Diagnoses Not on filedocumented in this encounter Care Teams Supervisor Ship Maintenance Services Relationship Specialty Start Date End Date JohnNovember [place] [id number] [place] [address] PCP - General 01/12/11 Trupti Denton MD [address] [place] [address] [phone] Assigned Surgical Provider 02/07/22 documented as of this encounter
--- OUTSIDE RECORDS SUMMARY | 2023-12-21 13:07 | XMS_ITS | Clinical Summary ---
Author Name Unknown Organization [facility] Address [address] [place] [address]. [place] [address] Care Team Providers Care Mechanic Sound Technician Name Role Phone November Primary Care Provider [phone] Trupti Denton MD Unavailable Allergies Active Allergy Reactions Criticality Noted Date Comments No Known Drug Allergy 05/11/2011 Medications Medication Sig Dispensed Refills Start Date End Date Status lisinopril (PRINIVIL,ZESTRIL) 20 MG tablet Take 20 mg by mouth daily. Active simvastatin (ZOCOR) 20 MG tablet Take by mouth At Bedtime. 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 Overview: Added automatically from request for surgery [id number] Cancer of base of tongue 09/14/2011 Head and neck cancer 10/13/2010 Encounters Date Type Department Care Team Description 12/13/2023 6:10 PM CDT Office Visit [facility] [place] [address] [place] [phone] La Carty PA-C Laceration of left hand without foreign body, initial encounter (Primary Dx) 12/13/2023 Travel from Last 3 Months Immunizations Name Administration Dates Next Due Influenza (IIV3) PF 05/11/2013, 2,06/04/2011, 010 Influenza Vaccine 18-64 (Flublok) 06/16/2022 Influenza Vaccine >6 months,quad, PF 05/25/2023, 06/16/2021,05/19/2016 Influenza, seasonal, injectable, PF 05/15/2009 TD,PF 7+ (Tenivac) 04/19/2019 TDAP (Adacel,Boostrix) 11/15/2008 Td (Adult), Adsorbed 04/19/2019 Family History Medical History Relation Comments Cancer [...] 12/13/2023 6:26 PM CD T Respiratory Rate 16 06/01/2022 1:01 PM CDT Oxygen Saturation 95% 12/13/2023 6:26 PM CDT Inhaled Oxygen Concentration - - Weight 86.2 kg (190 lb) 12/13/2023 6:26 PM CDT Height 177.8 cm (5' 10) 06/01/2022 1:01 PM CDT Body Mass Index 27.26 06/01/2022 1:01 PM CDT Plan of Treatment Upcoming Encounters Date Type Department Care Team (Late st Contact Info) Description 03/14/2024 2:30 PM CDT Office Visit [facility] [address] [place] [address] Trupti Denton MD [address] [place] [id number] Health Maintenance Due Date Last Done Comments [...] 01/12/2011, Additional history exists GLUCOSE 03/08/2016 03/08/2013, 01/2013, 02/29/2012, Additional history exists RSV VACCINE ( & 60+) (1 - 1-dose 60+ series) 2022 YEARLY PREVENTIVE VISIT 01/19/2023 01/19/2022 PHQ-2 (once per calendar year) 2023 01/13/2022, 11/26/2021, 01/22/2021 DTAP/TDAP/TD IMMUNIZATION (4 - Td or Tdap) 04/19/2029 04/19/2019, 04/19/2019, 11/15/2008 COLONOSCOPY 04/24/2032 04/24/2022 COLORECTAL CANCER SCREENING 04/24/2032 INFLUENZA VACCINE Completed 05/25/2023, , 06/16/2021, Additional history exists COVID-19 Vaccine Completed 06/23/2023, , 07/15/2021, Additional history exists HPV IMMUNIZATION Aged Out No longer e [...] on patient's age to complete this topic Procedures Procedure Name Priority Date/Time Associated Diagnosis Comments [place] REPAIR SUPERFICIAL, WOUND BODY < =2.5CM Routine 12/13/2023 6:54 PM CDT Laceration of left hand without foreign body, initial encounter CT CHEST W CONTRAST Routine 03/04/2015 1 0:42 AM CDT Cancer of base of tongue (H) COMPREHENSIVE METABOLIC PANEL Routine 03/08/2013 2:35 PM CDT Head and neck cancer (H) Encounter for long-term (current) use of other medications TSH Routine 03/08/2013 2:35 PM CDT Head and neck cancer (H) Encounter for long-term (current) use of other medications LIPID PROFILE Routine 07/07/2008 7:08 AM MEDIA RELATIONS INTERN from Last 3 Months or Most Recently Relevant to Health Maintenance Results * CT Chest w contrast* (03/04/2015 10:42 AM CDT) Anatomical Region Laterality Modality Chest, SUBRAD CT BODY, UMP CT CHEST Computed Tomography Impressions 03/04/2015 11:53 AM CDT IMPRESSION: 1. No evidence of metastasis. 2. Stable changes of right lower lobectomy. 3. Presumed hemangioma in the right lobe liver near dome seen. 2007. MRI would be most specific in further evaluation. MORIAH FAUSTIN MD Narrative 03/04/2015 11:[address] of the chest with contrast History: Malignant neoplasm of base of tongue Comparison study: 08/31/2011. Findings: No mediastinal, hilar or axillary adenopathy. Surgical changes of right lower lobectomy. 6 x 4 mm right lower lung nodule image 168, unchanged. 2 mm subpleural nodule left lower lobe image 170 unchanged. Subsegmental atelectasis or scarring in the right midlung. The heart, main pulmonary artery and aorta are not enlarged. No pleural or pericardial effusion. Evaluation of the upper abdomen is limited and is without contrast. There are cysts scattered in the liver unchanged. Hypervascular lesion in the right lobe near the dome likely flash filling hemangioma described previously. Small amount of pneumobilia is the distal common duct versus duodenal diverticulum partially imaged. Adrenal glands are not enlarged. Bones: There are degenerative changes of the spine. Procedure Note Moriah Faustin MD - 03/04/2015 CT of the chest with contrast History: Malignant neoplasm of base of tongue Comparison study: 08/31/2011. Findings: No mediastinal, hilar or axillary adenopathy. Surgical changes of right lower lobectomy. 6 x 4 mm right lower lung nodule image 168, unchanged. 2 mm subpleural nodule left lower lobe image 170 unchanged. Subsegmental atelectasis or scarring in the right midlung. The heart, main pulmonary artery and aorta are not enlarged. No pleural or pericardial effusion. Evaluation of the upper abdomen is limited and is without contrast. There are cysts scattered in the liver unchanged. Hypervascular lesion in the right lobe near the dome likely flash filling hemangioma described previously. Small amount of pneumobilia is the distal common duct versus duodenal diverticulum partially imaged. Adrenal glands are not enlarged. Bones: There are degenerative changes of the spine. IMPRESSION IMPRESSION: 1. No evidence of metastasis. 2. Stable changes of right lower lobectomy. 3. Presumed hemangioma in the right lobe liver near dome seen. 2007. MRI would be most specific in further evaluation. MORIAH FAUSTIN MD Luther Dunham MD IMG CT ORDERABLES * TSH (03/08/2013 2:35 PM CDT) TSH 2.03 0.4 - 5.0 mU/L [facility] Blood specimen (specimen) 03/08/2013 2:35 PM CDT 03/08/2013 2:38 PM CDT Ree Kraft MD LAB - BLOOD ORDERABL ES Performing Organization Address [facility] Co de Phone Number [facility] * (ABNORMAL) Comprehensive metabolic panel (03/08/2013 2:35 PM CDT) Sodium 142 133 - 144 mmol/L [facility] Potassium 3.9 3.4 - 5.3 mmol/L [facility] Chloride 101 94 - 109 mmol/L [facility] Carbon Dioxide 30 20 - 32 mmol/L [facility] Anion Gap 11 6 - 17 mmol/L [facility] Glucose 102(H) 60 - 99 mg/dL [facility] Urea Nitrogen 9 7 - 30 mg/dL [facility] Creatinine 0.80 0.66 - 1.25 mg/dL [facility] GFR Estimate >90 >60 mL/min/1.7 m2 [facility] GFR Estimate If Black >90 >60 mL/min/1.7 m2 [facility] Calcium 9.2 8.5 - 10.4 mg/dL [facility] Bilirubin Total 0.7 0.2 - 1.3 mg/dL [facility] Albumin 4.3 3.9 - 5.1 g/dL [facility] Comment:Reference range disla ged on 05/01/2008. Protein Total 7.3 6.8 - 8.8 g/dL [facility] Comment:As of 07, refer ence range reflects plasma specimen type. Alkaline Phosphatase 54 40 - 150 U/L [facility] ALT 32 0 - 70 U/L [facility] AST 27 0 - 45 U/L [facility] Blood specimen (specimen) 03/08/2013 2:35 PM CDT 03/08/2013 2:38 PM CDT Ree Kraft MD LAB - BLOOD ORDERABL ES Performing Organization Address City/[facility]/ZIP Co de Phone Number [facility] * (ABNORMAL) Lipid panel (07/07/2008 7:08 AM MEDIA RELATIONS INTERN) Cholesterol 182 0 - 200 mg/dL [facility] Comment: LDL Cholesterol is the primary guide to therapy: LDL-cholesterol goal in high risk patients is <100 mg/dL and in very high risk patients is <70 mg/dL. The NCEP recommends further evaluation of: patients with cholesterol <200 mg/dL if additionalrisk factors are present, cholesterol >240 mg/dL, triglycerides >150 mg/dL, or HDL <40 mg/dL. Triglycerides 195(H) 0 - 150 mg/dL [facility] HDL Cholesterol 36(L) 40 - 110 mg/dL [facility] LDL Cholesterol Calculated 106 0 - 129 mg/dL [facility] VLDL-Cholesterol 39(H) 0 - 30 mg/dL [facility] Cholesterol/HDL Ratio 5.0 0.0 - 5.0 [facility] 07/07/2008 7:08 AM MEDIA RELATIONS INTERN 07/07/2008 [facility] LAB - BLOOD ORDERABL ES [facility] from Last 3 Months or Most Recently Relevant to Health Maintenance Care Teams Mechanic Sound Technician Relationship Specialty Start Date End Date [place] [address] [place] [address] PCP - General 01/12/11 Trupti Denton MD [address] [place] [address] Assigned Surgical Provider 02/07/22
--- OUTSIDE RECORDS SUMMARY | 2023-12-21 13:07 | XMS_ITS | Encounter Summary ---
Author Name Unknown Organization [facility] Address [address] [place] [address] Care Team Providers Care Veterinary Technician Name Role Phone November Primary Care Provider Trupti Denton MD Unavailable Encounter Details Date Type Department Care Team (Late st Contact Info) Description 09/15/2023 Telephone [facility] [address] [place] [address] Trupti Denton MD [address] [place] [address] Social History Tobacco Use Types Packs/Day [...] Description 03/14/2024 2:30 PM CDT Office Visit [facility] [address] [place] [phone] Trupti Denton MD [address] [place] [phone] documented as of this encounter Visit Diagnoses Not on filedocumented in this encounter Care Teams Veterinary Technician Relationship Specialty Start Date End Date November [address] [place] [address] PCP - General 01/12/11 Trupti Denton MD [address] [place] [id number] Assigned Surgical Provider 02/07/22 documented as of this encounter
--- OUTSIDE RECORDS SUMMARY | 2023-12-21 13:07 | XMS_ITS | Encounter Summary ---
Author Name Unknown Organization [facility] Address [address] [place] [address] Care Team Providers Care Electrical Technician Name Role Phone November Primary Care Provider [phone] Trupti Denton MD Unavailable Encounter Details Date Type Department Care Team (Late st Contact Info) Description 04/24/2022 MyC Medical Advice [facility] [address] [address] Steven Walden RN Social History [...] Description 03/14/2024 2:30 PM CDT Office Visit [facility] [address] [address] Trupti Denton MD [address] [place] [address] documented as of this encounter Visit Diagnoses Not on filedocumented in this encounter Care Teams Electrical Technician Relationship Specialty Start Date End Date November [facility] [address] [place] [address] PCP - General 01/12/11 Trupti Denton MD [address] [place] [address] Assigned Surgical Provider 02/07/22 documented as of this encounter
--- OUTSIDE RECORDS SUMMARY | 2023-12-21 13:07 | XMS_ITS | Clinical Summary ---
Author Name Unknown Organization [facility] Address [place], [place] [address] Care Team Providers Care Geologist Name Role Phone Clemente John MD Primary Care Provider [phone] Allergies No known active allergies Medications Medication Sig Dispensed Refills Start Date End Date Status aspirin (ECOTRIN) 81 mg enteric coated tablet Take 81 mg by mouth once daily with a meal. Active FLUoxetine (PROZAC) 20 mg capsuleIndications:A nxiety and depression Take 1 Capsule (20 mg) by mouth once daily. 90 Capsule 01/19/2022 Active levothyroxine (SYNTHROID) 125 mcg tabletIndications:Hy pothyroidism, unspecified type Take 1 Tablet (125 mcg) by mouth once daily. 90 Tablet 01/19/2022 Active Additional Information Patient taking differently:125 mcg OralBEDTIME, Reported on 06/04/2023 simvastatin (ZOCOR) 20 mg tabletIndications:Hy perlipidemia, unspecified hyperlipidemia type Take 1 Tablet (20 mg) by mouth at bedtime. 90 Tablet 01/19/2022 Active amLODIPine (NORVASC) 2.5 mg tabletIndications:HT [...] by mouth once daily in the afternoon. Active multivitamin folic acid 0.4 mg Take 1 Tablet by mouth once daily. Active methocarbamoL (ROBAXIN) 750 mg tabletIndications:Ac [place] post-operative pain Take 1 Tablet (750 mg) by mouth every 6 hours if needed for Muscle Spasm. 30 Tablet 06/04/2023 Active sennosides-docusate (SENOKOT S) (8.6-50 mg) tabletIndications:Co nstipation due to opioid therapy Take 1 to 4 Tablets by mouth two times daily. 30 Tablet 06/04/2023 Active acetaminophen (TYLENOL EXTRA STRGTH) 500 mg tabletIndications:Ac [place] post-operative pain Take 2 Tablets (1,000 mg) by mouth every 6 hours if needed for Pain. Max acetaminophen dose: 4000mg in 24 hrs. 0 06/04/2023 Active oxyCODONE (ROXICODONE) 5 mg immediate release tabletIndications:Ac [place] post-operative pain Take 1 to 2 Tablets (5-10 mg) by mouth every 4 hours if needed for Pain (for severe pain.). 25 Tablet 06/04/2023 Active WalkerIndications:Ce rvical spinal stenosis Walker with front wheels for home use for 3 months. 1 Each 06/04/2023 Active Active Problems Problem Noted Date Diagnosed Date HTN (hypertension) 06/04/2023 Hyperlipemia 06/04/2023 Hypothyroidism 06/04/2023 Ascending aorta dilatation 12/02/2022 Bilateral lower extremity edema 12/02/2022 Cancer of base of tongue 01/19/2022 Encounters Date Type Department Care Team Description 12/13/2023 1:47 PM CDT - 12/13/2023 11:59 PM CDT Hospital Encounter [facility] [address] [place] [place] [address] Carmen Hilario MD Arthrodesis status 12/13/2023 Travel 11/02/2023 Orders Only [facility] [address] [place] [address] Carmen Hilario MD <No scans attached> 10/05/2023 Orders Only [facility] [address] [place] [address] Carmen Hilario MD <No scans attached> 09/28/2023 1:33 PM ENVIRONMENTAL SERVICES AIDE - 09/28/2023 11:59 PM ENVIRONMENTAL SERVICES AIDE Hospital Encounter [facility] [address] [place] [address] Carmen Hilario MD Menden, Timothy J, PT 09/28/2023 Travel from Last 3 Months Immunizations Name Administration Dates Next Due COVID-19 vaccine (Moderna 100mcg/0.5mL) PF, MDV 07/15/2021 COVID-19 vaccine (BetterDoctor-Bio NTech 30mcg/0.3mL) PF, MDV 11/16/2020,10/26/2020 Influenza RIV4 [...] 06/04/2023 9:40 AM CDT Plan of Treatment Health Maintenance Due Date Last Done Comments HIV for age 15-65 1977 Hepatitis C screening for age 18-79 1980 Zoster (shingles) series for age 50+ (1 of 2) 2012 Depression screening for age 12+ 01/19/2023 01/19/2022 BMI (ht and wt on same day) for age 18+ 10/21/2023 10/20/2022, 01/19/2022 Influenza for age 50-64 04/09/2024 06/16/20 22, 06/16/2021, 05/11/2013, Additional history exists Lipids for age 45-75 01/19/2027 01/19/2022 Tetanus booster 04/19/2029 04/19/2019, 11/15/2008 Colonoscopy through age 75 04/24/203204/24, 04/24/2022, 04/24/2022 Tdap Completed 11/15/2008 COVID-19 vaccine series Completed 06/23/20 23, 07/04/2022, 07/15/2021, Additional history exists Pneumococcal series for age 6-64 Aged Out No longer eligible based on patient's age to complete this topic Medical Devices Implanted Type Area Trawl Net Maker Device Identifier Shelf Expiration Date Model / Serial / Lot [id number] one Matrix 1cc Yuma Plus Paste Dbm Implanted:Qty: 1 on 06/04/2023 by Carmen Hilario MD at [facility] N/A: Spine Medtronic Spine/Ortho 05/02/2025 [id number] / [id number] / Bone Cerv 7mm 4 Deg Blanquita W/P - [id number] Implanted:Qty: 1 on 06/04/2023 by Carmen Hilario MD at [facility] N/A: Spine Proctor Spine 03/07/2028 [id number] / [id number] / Bone Cerv 7mm 4 Deg Blanquita W/P - [id number] Implanted:Qty: 1 on 06/04/2023 by Carmen Hilario MD at [facility] N/A: Spine Blanquita Spine 03/23/2028 [id number] / [id number] / Plate Cerv 34mm 2 Lvl Constrained [place] Ant Implanted:Qty: 1 on 06/04/2023 by Carmen Hilario MD at [facility] N/A: Spine [id number] / / Description:PLATE CERV 34MM 2 LVL CONSTRAINED OZARK ANT Screw Cerv 4.0x14mm Ant Slf Starting Variable [place] - [id number] Implanted:Qty: 6 on 06/04/2023 by Carmen Hilario MD at [facility] N/A: Spine Blanquita Spine [id number] / / Explanted Type Area Trawl Net Maker Device Identifier Shelf Expiration Date Model / Serial / Lot Pin Fixation Coarse Thread [place] - [id number] Explanted:Qty: 1 on 06/04/2023 by Carmen Hilario MD at [facility] N/A: Spine Blanquita Spine [id number] / / Procedures Procedure Name Priority Date/Time Associated Diagnosis Comments XR SPINE CERVICAL 2 VIEWS Routine 12/13/2023 1:56 PM CDT Arthrodesis status COLONOSCOPY SCREENING Routine 04/24/2022 9:36 AM CDT Screening for colon cancer LIPID PANEL W REFLEX MEASURED LDL Routine 01/19/2022 1:50 PM CDT Hyperlipidemia, unspecified hyperlipidemia type from Last 3 Months or Most Recently Relevant to Health Maintenance Results * XR SPINE CERVICAL 2 VIEWS (12/13/2023 1:56 PM CDT) Anatomical Region Laterality Modality CERVICAL SPINE Digital Radiogra phy 12/13/2023 2:34 PM CDT Narrative 12/13/2023 2:34 PM CDT For Patients: ??As a result of the Cures Act, medical imaging exams and procedure reports are released immediately into your electronic medical record. ??You may view this report before your referring provider. ??If you have questions, please contact your health care provider. INDICATION: Arthrodesis status TECHNIQUE: Two views of the cervical spine Comparison x-rays 08/30/2023 FINDINGS/IMPRESSION: Anterior cervical fusion at the level of C5-C7 alignment is unchanged. No hardware complications are seen. Dictated by Rosalind Tomlinson MD @ 12/13/2023 2:34:06 PM (Electronically Signed) Procedure Note Rosalind Tomlinson MD - 12/13/2023 For Patients: As a result of the s Act, medical imagingexams and procedure reports are released immediately into your electronicmedical record. You may view this report before your referring provider.If you have questions, please contact your health care provider. INDICATION: Arthrodesis status TECHNIQUE: Two views of the cervical spine Comparison x-rays 08/30/2023 FINDINGS/IMPRESSION: Anterior cervical fusion at the level of C5-C7 alignment is unchanged. Nohardware complications are seen. Dictated by Rosalind Tomlinson MD @ 12/13/2023 2:34:06 PM (Electronically Signed) Carmen Hilario MD GENERAL IMAGING * COLONOSCOPY (04/24/2022 9:50 AM CDT) 04/24/2022 9:50 AM CDT Narrative Transcriptions Braxton Mendez MD - 04/24/2022 10:53 AM CDT Patient Name: Moise Stone Procedure Date: 04/24/2022 Gender: Male Date of : 1960 Admit Type: Outpatient Procedure: Colonoscopy Proceduralist: Braxton Mendez MD , Helen Cain, NESHA (Nurse), Norma Milton (Nurse) Referring MD: Sudeep Crespo Indications/Pre-Op Diagnosis: Screening for colorectal malignant neoplasm, Last colonoscopy: August 2011 Medications: Fentanyl 100 micrograms IV, Midazolam 4 mgIV, The level of sedation administered wasmoderate Procedure Description: The patient had risks, benefits and alternatives explained to andgave informed consent. The patient had a stable cardiopulmonary status and judged an adequate candidate for conscious sedation. The Colonoscope was passed through the anus and advanced to thececum, identified by appendiceal orifice and ileocecal valve. Thecolonoscopy was performed without difficulty. The patient tolerated the procedure well. The quality of the bowel preparation was good. The ileocecal valve, appendiceal orifice, and rectum were photographed. Complications: No immediate complications. Estimated Blood Loss & Specimen: Estimated blood loss: none. Specimen collected - None Findings: The perianal and digital rectal examinations were normal. Multiple small-mouthed diverticula were found in the sigmoid colon. The exam was otherwise without abnormality. Impressions/Post-Op Diagnosis: - Diverticulosis in the sigmoid colon. - The examination was otherwise normal. - No specimens collected. Recommendation: - Patient has a contact number available for emergencies. The signsand symptoms of potential delayed complications were discussed with the patient. Return to normal activities tomorrow. Written discharge instructions were provided to the patient. - Resume previous diet. - Continue present medications. - Repeat colonoscopy in 10 years for screening purposes. Moderate Sedation: A time out was performed before the procedure. Moderate (conscious) sedation was administered by the endoscopy nurse and supervised bythe endoscopist. The following parameters were monitored: oxygensaturation, heart rate, blood pressure, EKG, CO2, respiratory rate, adequacy of pulmonary ventilation and reponse to care. Please refer to the patient's medical record flowsheets and nursing notes for moderate sedation details. Total physician intraservice time was 16 minutes. Braxton Mendez MD 04/24/2022 10:53:18 AM This report has been signed electronically. Note Initiated On: 04/24/2022 9:50 AM Procedure Code(s): --- Professional --- 31332, Colonoscopy, flexible; diagnostic, including collection of specimen(s) bybrushing or washing, when performed (separateprocedure) Diagnosis Code(s): --- Professional --- Z12.11, Encounter for screening formalignant neoplasm of colon K57.30, Diverticulosis of large intestine without perforation or abscess withoutbleeding CPT copyright 2020 [employer] [place] [employer]. All rights reserved. The codes documented in this report are preliminary and upon continuous mining machine operator reviewmay be revised to meet current compliance requirements. Scope In: 10:35:53 AM Scope Withdrawal Time 0 hours 7 minutes 35 seconds Scope Out: 10:48:35 AM Braxton Mendez MD PROCEDURE ORD * LIPID PANEL W REFLEX MEASURED LDL (01/19/2022 1:50 PM CDT) CHOLESTEROL,TOTAL 173 100 - 199 mg/dL 01/20/2022 1:38 AM CDT [facility] TRIGLYCERIDES 61 <150 mg/dL 01/20/2022 1:38 AM CDT [facility] HDL CHOLESTEROL 81 >40 mg/dL 2 1:38 AM CDT [facility] NON-HDL CHOLESTEROL 92 <145 mg/dl 01/20/2022 1:38 AM CDT [facility] CHOL/HDL RATIO 2.14 <4.50 01/20/2022 1:38 AM CDT [facility] LDL CHOLESTEROL 80 <=130 mg/dL 01/20/2022 1:38 AM CDT [facility] VLDL CHOLESTEROL 12 <=30 mg/dL 01/20/2022 1:38 AM CDT [facility] PROVIDER ORDERED STATUS RANDOM 01/20/2022 1:38 AM CDT [facility] Blood BLOOD SPECIMEN / Unknown Venipuncture / Unknown 01/19/2022 1:50 PM CDT 01/19/2022 1:50 PM CDT Sudeep GLASS [facility] [address] [place] [address], from Last 3 Months or Most Recently Relevant to Health Maintenance Advance Directives * Full Code (Latest Code Status on File) Date Activated Date Inactivated Comments 06/04/2023 2:26 PM 06/05/2023 1:32 PM Question Answer Comments Code Status Discussion: Unable to Assess Preferences, Provider to review later Care Teams Geologist Relationship Specialty Start Date End Date Clemente John MD [facility] [place] [address] PCP - General Family Practice 06/23/21
--- OUTSIDE RECORDS SUMMARY | 2023-12-21 13:07 | XMS_ITS | Referral Summary ---
Author Name Unknown Organization [facility] Address [address] [place] [address]. [place] [address] Care Team Providers Care Ball Racker Name Role Phone November Primary Care Provider [phone] Trupti Denton MD Unavailable Encounters Date Type Department Care Team Description 12/13/2023 Travel 12/13/2023 6:10 PM CDT Office Visit [facility] [place] [address] [place] [address] La Carty PA-C Laceration of left hand without foreign body, initial encounter (Primary Dx) from Last 3 Months Allergies Active Allergy [...] Overview: Added automatically from request for surgery [id number] Cancer of base of tongue 09/14/2011 Head and neck cancer 10/13/2010 Immunizations Name Administration Dates Next Due Influenza (IIV3) PF 05/11/2013, 2,06/04/2011, 010 Influenza Vaccine 18-64 (Flublok) 06/16/2022 Influenza Vaccine >6 months,quad, PF 05/25/2023, 06/16/2021,05/19/2016 Influenza, seasonal, injectable, PF 05/15/2009 TD,PF 7+ (Tenivac) 04/19/2019 TDAP (Adacel,Boostrix) 11/15/2008 Td (Adult), Adsorbed 04/19/2019 Social History Tobacco Use Types Packs/Day Years [...] Description 03/14/2024 2:30 PM CDT Office Visit [facility] [address] [place] [phone] Trupti Denton MD [address] [place] [address] Procedures Procedure Name Priority Date/Time Associated Diagnosis Comments [place] REPAIR SUPERFICIAL, WOUND BODY < =2.5CM Routine [...] medications LIPID PROFILE Routine 07/07/2008 7:08 AM DEWATERER OPERATOR from Last 3 Months or Most Recently [...] the right lobe liver near dome seen. 2008. MRI would be most specific in further evaluation. MORIAH FAUSTIN MD Luther Dunham MD IMG CT ORDERABLES * TSH (03/08/2013 2:35 PM CDT) TSH 2.03 0.4 - 5.0 mU/L [facility] Blood specimen (specimen) 03/08/2013 2:35 PM CDT 03/08/2013 2:38 PM CDT Ree Kraft MD LAB - BLOOD ORDERABL ES Performing Organization Address City/[facility]/ZIP Co de Phone Number [facility] * (ABNORMAL) Comprehensive metabolic panel (03/08/2013 2:35 PM CDT) Sodium 142 133 - 144 mmol/L [facility] Potassium 3.9 3.4 - 5.3 mmol/L [facility] Chloride 101 94 - 109 mmol/L [facility] Carbon Dioxide 30 20 - 32 mmol/L [facility] Anion Gap 11 6 - 17 mmol/L [facility] Glucose 102(H) 60 - 99 mg/dL [facility] Urea Nitrogen 9 7 - 30 mg/dL [facility] Creatinine 0.80 0.66 - 1.25 mg/dL [facility] GFR Estimate >90 >60 mL/min/1.7 m2 [facility] GFR Estimate If Black >90 >60 mL/min/1.7 m2 [facility] Calcium 9.2 8.5 - 10.4 mg/dL [facility] Bilirubin Total 0.7 0.2 - 1.3 mg/dL [facility] Albumin 4.3 3.9 - 5.1 g/dL [facility] Comment:Reference range [facility] on 05/01/2008. Protein Total 7.3 6.8 - 8.8 g/dL [facility] Comment:As of 07, refer ence range reflects plasma specimen type. Alkaline Phosphatase 54 40 - 150 U/L [facility] ALT 32 0 - 70 U/L [facility] AST 27 0 - 45 U/L [facility] Blood specimen (specimen) 03/08/2013 2:35 PM CDT 03/08/2013 2:38 PM CDT Ree Kraft MD LAB - BLOOD ORDERABL ES [facility] * (ABNORMAL) Lipid panel (07/07/2008 7:08 AM DEWATERER OPERATOR) Cholesterol 182 0 - 200 mg/dL MISYS [...] 0.0 - 5.0 MISYS 07/07/2008 7:08 AM DEWATERER OPERATOR 07/07/2008 Preethi Mullen LAB - BLOOD ORDERABL ES MISYS from Last 3 Months or Most Recently Relevant to Health Maintenance Care Teams Ball Racker Relationship Specialty Start Date End Date November [id number] [place] [address] PCP - General 01/12/11 Trupti Denton MD [address] [place] [address] Assigned Surgical Provider 02/07/22
--- OUTSIDE RECORDS SUMMARY | 2023-12-21 13:07 | XMS_ITS | Encounter Summary ---
Author Name Unknown Organization [facility] Address [address] [place] [address]. [place] [address] Care Team Providers Care Valve And Regulator Repairer Name Role Phone November Primary Care Provider [phone] Trupti Denton MD Unavailable Encounter Details Date Type Department Care Team (Late Contact Info) Description 08/11/2023 MyC Medical Advice [facility] [address] [phone] Ayden Roberson Social History Tobacco Use Types [...] [facility] [address] [place] [phone] Trupti Denton MD [address] [place] [address] documented as of this encounter Visit Diagnoses Not on filedocumented in this encounter Care Teams Valve And Regulator Repairer Relationship Specialty Start Date End Date November [facility] [address] [facility] [place] [address] PCP - General 01/12/11 Trupti Denton MD [address] [place] [address] Assigned Surgical Provider 02/07/22 documented as of this encounter
--- OUTSIDE RECORDS SUMMARY | 2023-12-21 13:07 | XMS_ITS | Continuity of Care Document ---
Author Name Unknown Organization [facility] Address [address] [place] [address] Phone Care Team Providers Care Hat And Cap Drying Room Attendant Name Role Phone Yanelis SHEFFIELD, Carmen Unavailable [...] Procedures Procedure Date Office/Outpatient Visit,Est, Mod 2023 Postop Followup Visit Office/Outpatient Visit,Est, Low 2022 ACDF - Anterior [...] Diagnoses Date Provider Providers Copied on Encounter Office/Outpat ient Visit,Est, Mod [facility], [address], [place], [id number], [place] tel:[phone] [facility], cervical region 4 Mehbod Amir. [facility], [address], [place], [id number] , [place]. tel:[phone] Referring Provider: Moshe Ortiz [facility], [place], [address]. tel:[phone] [facility], [address], [place], [id number], [place] tel:[phone] [facility] Spinal stenosis, cervical region 4 Mehbod Amir. [facility], [address], [facility] [place], [id number] , [place]. tel:[phone] Referring Provider: Moshe Ortiz [facility] [place] [address] [place], [address]. tel:[phone] Office/Outpat ient Visit,Est, Low [facility], [address], [place], [id number], [place] tel:[phone] [facility] Spinal stenosis, cervical region 3 Mehbod Amir. [facility], [address], [place], [id number] , [place]. tel:[phone] Referring Provider: Moshe Ortiz [facility] [place] [address] [place], [address]. tel:[phone] [facility], [address], [place], [id number], [place] tel:[phone] [facility] No Information 2- 3 Ning Carpenter. [address], [place], [place], [id number] , [place]. tel:[phone] Referring Provider: Moshe Ortiz [facility] [place], [address]. tel:[phone] [facility], [address], [place], [id number], [place] tel:[phone] [facility] No Information 3 Mehbod Amir. [facility], [address], [place], [place], [id number] , [place]. tel:[phone] Referring Provider: Adrianna [facility] [place], [address]. tel:[phone] Office/Outpat ient Visit,New, Mod [facility], [address], [facility] [place] [place], [id number], [place] tel:[phone] [facility] - [facility] Spinal stenosis, cervical region 3 Mehbod Amir. [facility], [address], [place], [place], [id number] , [place]. tel:[phone] Referring Provider: Adrianna [facility] [place], [address]. tel:[phone] Family History Family Member Type Diagnosis Age At Onset No Information Payers Payer name Insurance type Covered constitution party ID Haleysteve virginiamekhi(s) [facility] [id number] [facility] [id number] Social History Type Description Quantity Date Captured Comments Alcohol Use Details Unknown Caffeine Use Details Unknown Tobacco Use Status Ex-cigarette smoker 024 Smoking Status Former smoker Smoking Tobacco Use Details Cigarette: Age Started: 42, Age Stopped: 47, Years Used 5
Cigar: Age Started: 42, Age Stopped: 47, Years Used 5 Cigarette: No Details Available Cigar: No Details Available Sex Male Vital Signs Date / Time: Height Weight BMI Pulse Rate Blood Pressure Temperature Respiratory Rate Body Surface Area Head Circumference Head Circ. Percentile Wt./Angel. Percentile BMI percentile Pulse Ox Inhaled Ox 2:03 PM 69.50 in 88.451 kg (195.00 lbs) 28.3 8 kg/m eter (2) Chief Complaint And Reason For Visit No Information Reason For Referral Reason For Referral No Information History Of Present Illness Encounter Date Complaint History Of Prese nt Illness No Information Functional Status Date Functional Assessmen t No Information Instructions Date Instruction Additional Infor mation No Information Assessments Type Assessment Date No Information Patient Care Teams Name Effective Dates (start - stop) Status Members No Information
== END 2023-12-21 13:05 | disposition home or self-care (01) ==
LOC: CT 13:05
PROVIDERS: PCP Physician Assistant Medical; Visit Provider Physician Assistant Medical
DX: R04.2 Hemoptysis (principal); I71.21 Aneurysm of the ascending aorta, without rupture; R91.1 Solitary pulmonary nodule
CPT/HCPCS: 71250

== ENCOUNTER 2024-01-04 14:09 | Outpatient (CLI) | payer BC, SELFPAY ==
--- OUTSIDE RECORDS SUMMARY | 2024-01-04 14:16 | XMS_ITS | Continuity of Care Document ---
Author Organization [facility] Address [address] [place] [address] Phone Care Team Providers Care Barrel Cutter Name Role Phone Yanelis SHEFFIELD, Carmen Unavailable [...] Segments O Allograft, Structural Office/Outpatient Visit,New, Mod Sep-14- 2023 Advance Directives Directive Yes / No Effective Date File Name No Information Encounters Encounter Description Practice Location Reason(s) For Visit Diagnoses Date Provider Providers Copied on Encounter Office/Outpat ient Visit,Est, Mod [facility], [address], [place], [id number], [place] tel:[phone] [facility] Spinal stenosis, cervical region 4 Mehbod Amir. [facility], [address], [place], [id number] , [place]. tel:[phone] Referring Provider: Moshe Ortiz [facility] [address] [place], [address]. tel:[phone] [facility], [address], [place], [id number], [place] tel:[phone] [facility], cervical region 4 Mehbod Amir. [facility], [address], [place], [id number] , [place]. tel:[phone] Referring Provider: Moshe Ortiz [facility] [place] [address] [place], [address]. tel:[phone] Office/Outpat ient Visit,Est, Low [facility], [address], [place], [id number], [place] tel:[phone] [facility] Spinal stenosis, cervical region 3 Mehbod Amir. [facility], [address], [place], [id number] , [place]. tel:[phone] Referring Provider: Moshe Ortiz [facility] [place], [address]. tel:[phone] [facility], [address], [place], [id number], [place] tel:[phone] [facility] No Information - 3 Ning Carpenter. [address] [place] [address] [address], [place], [id number] , [place]. tel:[phone] Referring Provider: [facility] [place], [address]. tel:[phone] [facility], [address], [place], [id number], [place] tel:[phone] [facility] No Information 3 Mehbod Amir. [facility], [address], [facility] [place], [id number] , [place]. tel:[phone] Referring Provider: [facility] [place], [address]. tel:[phone] Office/Outpat ient Visit,New, [facility], [address], [place], [id number], [place] tel:[phone] [facility] Spinal stenosis, cervical region 3 Mehbod Amir. [facility], [address], [place], [place], [id number] , [place]. tel:[phone] Referring Provider: [facility] [address] [place] [address], [address]. tel:[phone] Family History Family Member Type Diagnosis Age At Onset No Information Payers Payer name Insurance type Covered republican ID Brenden white(s) [facility] [id number] [facility] [id number] Social History Type Description Quantity Date Captured [...]
--- OUTSIDE RECORDS SUMMARY | 2024-01-04 14:16 | XMS_ITS | Clinical Summary ---
Author Organization [employer] [facility] Address [place], [place] [address] Care Team Providers Care Gasoline Engine Assembler Name Role Phone Clemente John MD Primary Care Provider [phone] Allergies No known active allergies Medications Medication [...] daily. Active methocarbamoL (ROBAXIN) 750 mg tabletIndications:Ac [place] post-operative pain Take 1 Tablet (750 mg) by mouth every 6 hours if needed for Muscle Spasm. 30 Tablet 06/04/2023 Active sennosides-docusate (SENOKOT S) (8.6-50 mg) tabletIndications:Co nstipation due to opioid therapy Take 1 to 4 Tablets by mouth two times daily. 30 Tablet 06/04/2023 Active acetaminophen (TYLENOL EXTRA STRGTH) 500 mg tabletIndications:Ac [place] post-operative pain Take 2 Tablets (1,000 mg) by mouth every 6 hours if needed for Pain. Max acetaminophen dose: 4000mg in 24 hrs. 0 06/04/2023 Active oxyCODONE (ROXICODONE) 5 mg immediate release tabletIndications:Ac [place] post-operative pain Take 1 to 2 Tablets [...] CDT Hospital Encounter [facility] [address] [place] [address] Carmen Hilario MD Arthrodesis status 12/13/2023 Travel 11/02/2023 Orders Only [facility] [address] [place], [place] [id number] Carmen Hilario MD <No scans attached> from Last 3 Months Immunizations Name Administration Dates Next Due COVID-19 vaccine (Moderna 100mcg/0.5mL) PF, MDV 07/15/2021 COVID-19 vaccine (Pfizer-Bio NTech 30mcg/0.3mL) PF, [...] 10/20/2022, 01/19/2022 Influenza for age 50-64 04/09/2024 06/16/20, 06/16/2021, 05/11/2013, Additional history exists Lipids for age 45-75 01/19/2027 01/19/2022 Tetanus booster 04/19/2029 04/19/2019, 11/15/2008 Colonoscopy through age 75 04/24/203204/24, 04/24/2022, 04/24/2022 Tdap Completed 11/15/2008 COVID-19 vaccine series Completed 06/23/20 23, 07/04/2022, 07/15/2021, Additional history exists Pneumococcal series for age 6-64 Aged Out No longer eligible based on patient's age to complete this topic Medical Devices Implanted Type Area 411 Directory Assistance Operator Device Identifier Shelf Expiration Date Model / Serial / Lot [id number] one Matrix 1cc Hudson Plus Paste Dbm Implanted:Qty: 1 on 06/04/2023 by Carmen Hilario MD at [facility] N/A: Spine Medtronic Spine/Ortho 05/02/2025 [id number] / [id number] / Bone Cerv 7mm 4 Deg [place] W/P - [id number] Implanted:Qty: 1 on 06/04/2023 by Carmen Hilario MD at [facility] N/A: Spine Blanquita Spine 03/07/2028 [id number] / [id number] / Bone Cerv 7mm 4 Deg [place] W/P - [id number] Implanted:Qty: 1 on 06/04/2023 by Carmen Hilario MD at [facility] N/A: Spine Shawnee Spine 03/23/2028 [id number] / [id number] / Plate Cerv 34mm 2 Lvl Constrained Early Ant Implanted:Qty: 1 on 06/04/2023 by Carmen Hilario MD at [facility] N/A: Spine [id number] / / Description:PLATE CERV 34MM 2 LVL CONSTRAINED OZARK ANT Screw Cerv 4.0x14mm Ant Slf Starting Variable Early - [id number] Implanted:Qty: 6 on 06/04/2023 by Carmen Hilario MD at [facility] N/A: Spine Blanquita Spine [id number] / / Explanted Type Area 411 Directory Assistance Operator Device Identifier Shelf Expiration Date Model / Serial / Lot Pin Fixation Coarse Thread Early - [id number] Explanted:Qty: 1 on 06/04/2023 by Carmen Hilario MD at [facility] N/A: Spine [place] Spine [id number] / / Procedures Procedure Name Priority Date/Time [...] For Patients: ??As a result of the Century Cures Act, medical imaging exams and procedure [...] Colonoscopy Proceduralist: Braxton Mendez MD , Helen Cain RN (Nurse), Norma [place] (Nurse) Referring MD: Sudeep [...] 9:50 AM Procedure Code(s): --- Professional --- 26806, Colonoscopy, flexible; diagnostic, including collection of specimen(s) bybrushing or washing, when performed (separateprocedure) Diagnosis Code(s): --- Professional --- Z12.11, Encounter for screening formalignant neoplasm of colon K57.30, Diverticulosis of large intestine without perforation or abscess withoutbleeding CPT copyright 2020 [employer]. All rights reserved. The codes documented in this report are preliminary and upon rooming house inspector reviewmay be revised to meet current compliance requirements. Scope In: 10:35:53 AM Scope Withdrawal Time 0 hours 7 minutes 35 seconds Scope Out: 10:48:35 AM Braxton Mendez MD PROCEDURE ORD * LIPID PANEL W REFLEX MEASURED LDL (01/19/2022 1:50 PM CDT) CHOLESTEROL,TOTAL 173 100 - 199 mg/dL 01/20/2022 1:38 AM CDT [facility] [employer] [facility] TRIGLYCERIDES 61 <150 mg/dL 01/20/2022 1:38 AM CDT [facility] HDL CHOLESTEROL 81 >40 mg/dL 1:38 AM CDT [facility] NON-HDL CHOLESTEROL 92 <145 mg/dl 01/20/2022 1:38 AM CDT [facility] CHOL/HDL RATIO 2.14 <4.50 01/20/2022 1:38 AM CDT [facility] LDL CHOLESTEROL 80 <=130 mg/dL 01/20/2022 1:38 AM CDT [facility] VLDL CHOLESTEROL 12 <=30 mg/dL 01/20/2022 1:38 AM CDT [facility] PROVIDER ORDERED STATUS RANDOM 01/20/2022 1:38 AM CDT [facility] Blood BLOOD SPECIMEN / Unknown Venipuncture / Unknown 01/19/2022 1:50 PM CDT 01/19/2022 1:50 PM CDT Sudeep GLASS CHEMISTRY [facility] [address] [place] [address], from Last 3 Months or Most Recently Relevant to Health Maintenance Advance Directives * Full Code (Latest Code Status on File) Date Activated Date Inactivated Comments 06/04/2023 2:26 PM 06/05/2023 1:32 PM Question Answer Comments Code Status Discussion: Unable to Assess Preferences, Provider to review later Care Teams Gasoline Engine Assembler Relationship Specialty Start Date End Date Clemente John MD [address] [place] [address] PCP - General Family Practice 06/23/21
--- OUTSIDE RECORDS SUMMARY | 2024-01-04 14:17 | XMS_ITS | Referral Summary ---
Author Organization [facility] Address [address] [place] [address]. [place] [address] Care Team Providers Care Orthodontic Lab Technician Name Role Phone Gerardonovember Primary Care Provider [phone] Encounters Date Type Department Care Team Description 12/24/2023 Travel 12/24/2023 11:00 AM CDT Allied Health/Nurse Visit [facility] [address] [place] [phone] Rn, Ri Allied Health Visit (Suture removal) 12/13/2023 Travel 12/13/2023 6:10 PM CDT Office Visit [facility] [place] [address] [place] [address] La Carty PA-C Laceration of left hand [...] Overview: Added automatically from request for surgery [id number] Cancer of base of tongue 09/14/2011 Head [...] [facility] [address] [place] [address] Trupti Denton MD [address] [place] [id number] Procedures Procedure Name Priority Date/Time Associated Diagnosis Comments [place] REPAIR SUPERFICIAL, WOUND BODY < =2.5CM Routine [...] medications LIPID PROFILE Routine 07/07/2008 7:08 AM ELEVATED GUARD from Last 3 Months or Most Recently [...] CDT) TSH 2.03 0.4 - 5.0 mU/L [facility] Blood specimen (specimen) 03/08/2013 2:35 PM CDT 03/08/2013 2:38 PM CDT Ree Kraft MD LAB - BLOOD ORDERABL ES [facility] * (ABNORMAL) Comprehensive metabolic panel (03/08/2013 2:35 PM CDT) Sodium 142 133 - 144 mmol/L [facility] Potassium 3.9 3.4 - 5.3 mmol/L [facility] Chloride 101 94 - 109 mmol/L [facility] Carbon Dioxide 30 20 - 32 mmol/L [facility] Anion Gap 11 6 - 17 mmol/L [facility] Glucose 102(H) 60 - 99 mg/dL [facility] Urea Nitrogen 9 7 - 30 mg/dL [facility] Creatinine 0.80 0.66 - 1.25 mg/dL [facility] GFR Estimate >90 >60 mL/min/1.7 m2 [facility] GFR Estimate If Black >90 >60 mL/min/1.7 m2 [facility] Calcium 9.2 8.5 - 10.4 mg/dL [facility] Bilirubin Total 0.7 0.2 - 1.3 mg/dL [facility] Albumin 4.3 3.9 - 5.1 g/dL [facility] Comment:Reference range disla ged on 05/01/2008. Protein Total 7.3 6.8 - 8.8 g/dL [facility] Comment:As of 07, refer ence range reflects plasma specimen type. Alkaline Phosphatase 54 40 - 150 U/L [facility] ALT 32 0 - 70 U/L [facility] AST 27 0 - 45 U/L [facility] Blood specimen (specimen) 03/08/2013 2:35 PM CDT 03/08/2013 2:38 PM CDT Ree Kraft MD LAB - BLOOD ORDERABL ES [facility] * (ABNORMAL) Lipid panel (07/07/2008 7:08 AM ELEVATED GUARD) Cholesterol 182 0 - 200 mg/dL [facility]IS[facility] [...] 0.0 - 5.0 MISYS 07/07/2008 7:08 AM ELEVATED GUARD 07/07/2008 Preethi Mullen LAB - BLOOD ORDERABL ES MISYS from Last 3 Months or Most Recently Relevant to Health Maintenance Care Teams Orthodontic Lab Technician Relationship Specialty Start Date End Date Gerardonovember [place] [address] [place] [address] PCP - General 01/12/11
--- OUTSIDE RECORDS SUMMARY | 2024-01-04 14:17 | XMS_ITS | Encounter Summary ---
Author Organization [facility] Address [address] [place] [address]. [place] [address] Care Team Providers Care Air And Water Tester Name Role Phone November Primary Care Provider Trupti Denton MD Unavailable Encounter Details Date Type Department Care Team (Late Contact Info) Description 12/29/2022 MyC Medical Advice [facility] [address] 4th [place] [address] [facility] Social History Tobacco Use Types Packs/Day [...] Description 03/14/2024 2:30 PM CDT Office Visit [facility] [address] 4th [place] [address] Trupti Denton MD [address] [place] [address] documented as of this encounter Visit Diagnoses Not on filedocumented in this encounter Care Teams Air And Water Tester Relationship Specialty Start Date End Date November [address] [place] [address] PCP - General 01/12/11 Trupti Denton MD [address] [place] [address] [id number] Assigned Surgical Provider 02/07/22 documented as of this encounter
--- OUTSIDE RECORDS SUMMARY | 2024-01-04 14:17 | XMS_ITS | Encounter Summary ---
Author Organization [facility] Address [address] [place] [address]. [place] [address] Care Team Providers Care Inorganic Chemistry Professor Name Role Phone November Primary Care Provider [phone] Trupti Denton MD Unavailable Reason for Visit * Reason Comments Urgent Care Hand laceration, cut ting down boxes in garage, left hand, pointer finger. Encounter Details Date Type Department Care Team (Late st Contact Info) Description 12/13/2023 6:10 PM CDT Office Visit [facility] [place] [address] [place] [address] La Carty PA-C [facility] [address] [place] [address] Laceration of left hand without foreign body, [...] signs of infection. Conservative measures discussed including [id number] as needed for pain. See your primary [...] signs of infection. Conservative measures discussed including [id number] as needed for pain. See your primary [...] Description 03/14/2024 2:30 PM CDT Office Visit [facility] [address] [phone] Trupti Denton MD [address] [place] [address] documented as of this encounter Procedures Procedure Name Priority Date/Time Associated Diagnosis Comments [place] REPAIR SUPERFICIAL, WOUND BODY < =2.5CM Routine 12/13/2023 6:54 PM CDT Laceration of left hand without foreign body, initial encounter documented in this encounter Visit Diagnoses Diagnosis Laceration of left hand without foreign body, initial encounter- Primary documented in this encounter Care Teams Inorganic Chemistry Professor Relationship Specialty Start Date End Date November [place] [address] [place] [address] PCP - General 01/12/11 Trupti Denton MD [address] [place] [address] Assigned Surgical Provider 02/07/22 documented as of this encounter
--- OUTSIDE RECORDS SUMMARY | 2024-01-04 14:17 | XMS_ITS | Clinical Summary ---
Author Organization [facility] Address [address] [place] [address] Care Team Providers Care Concession Attendant Name Role Phone Gerardonovember Primary Care Provider [phone] Allergies Active Allergy Reactions Criticality Noted Date [...] Overview: Added automatically from request for surgery [id number] Cancer of base of tongue 09/14/2011 Head and neck cancer 10/13/2010 Encounters Date Type Department Care Team Description 12/24/2023 11:00 AM CDT Allied Health/Nurse Visit [place] [address] [place] [address] Rn, Ri Allied Health Visit (Suture removal) 12/24/2023 Travel 12/13/2023 6:10 PM CDT Office Visit [facility] [place] [address] [place] [address] La Carty PA-C Laceration of left hand [...] Description 03/14/2024 2:30 PM CDT Office Visit [facility] [address] 4th [place] [address] Trupti Denton MD [address] [place] [address] Health Maintenance Due Date Last Done [...] Name Priority Date/Time Associated Diagnosis Comments [place] REPAIR SUPERFICIAL, WOUND BODY < =2.5CM Routine [...] medications LIPID PROFILE Routine 07/07/2008 7:08 AM AVIONICS SYSTEM ENGINEER from Last 3 Months or Most Recently [...] evaluation. MORIAH FAUSTIN MD Luther Dunham MD G CT ORDERABLES * TSH (03/08/2013 2:35 PM CDT) TSH 2.03 0.4 - 5.0 mU/L [facility] Blood specimen (specimen) 03/08/2013 2:35 PM CDT 03/08/2013 2:38 PM CDT Ree Kraft MD LAB - BLOOD ORDERABL ES [facility] * (ABNORMAL) Comprehensive metabolic panel (03/08/2013 2:35 PM CDT) Sodium 142 133 - 144 mmol/L [facility] Potassium 3.9 3.4 - 5.3 mmol/L [facility] Chloride 101 94 - 109 mmol/L [facility] Carbon Dioxide 30 20 - 32 mmol/L [facility] Anion Gap 11 6 - 17 mmol/L [facility] Glucose 102(H) 60 - 99 mg/dL [facility] Urea Nitrogen 9 7 - 30 mg/dL [facility] Creatinine 0.80 0.66 - 1.25 mg/dL [facility] GFR Estimate >90 >60 mL/min/1.7 m2 [facility] GFR Estimate If Black >90 >60 mL/min/1.7 m2 [facility] Calcium 9.2 8.5 - 10.4 mg/dL [facility] Bilirubin Total 0.7 0.2 - 1.3 mg/dL [facility] Albumin 4.3 3.9 - 5.1 g/dL [facility] Comment:Reference range disla ged on 05/01/2008. Protein Total 7.3 6.8 - 8.8 g/dL [facility] Comment:As of 07, refer ence range reflects plasma specimen type. Alkaline Phosphatase 54 40 - 150 U/L [facility] ALT 32 0 - 70 U/L [facility] AST 27 0 - 45 U/L [facility] Blood specimen (specimen) 03/08/2013 2:35 PM CDT 03/08/2013 2:38 PM CDT Ree Kraft MD LAB - BLOOD ORDERABL ES [facility] * (ABNORMAL) Lipid panel (07/07/2008 7:08 AM AVIONICS SYSTEM ENGINEER) Cholesterol 182 0 - 200 mg/dL [facility] [...] 0.0 - 5.0 MISYS 07/07/2008 7:08 AM AVIONICS SYSTEM ENGINEER 07/07/2008 Preethi Mullen LAB - BLOOD ORDERABL ES Performing Organization Address City/[facility] Co de Phone Number MISYS from Last 3 Months or Most Recently Relevant to Health Maintenance Care Teams Concession Attendant Relationship Specialty Start Date End Date Gerardonovember [facility] [address] [place] [address] PCP - General 01/12/11
--- OUTSIDE RECORDS SUMMARY | 2024-01-04 14:17 | XMS_ITS | Encounter Summary ---
Author Organization [facility] Address [address] [place] [address]. [place] [address] Care Team Providers Care Scrum Master Name Role Phone November Primary Care Provider [phone] Trupti Denton MD Unavailable Encounter Details Date Type Department Care Team (Late st Contact Info) Description 04/24/2022 MyC Medical Advice [facility] [address] [address] Steven Walden RN Social History [...] Description 03/14/2024 2:30 PM CDT Office Visit [facility] [address] [address] Trupti Denton MD [address] [place] [address] documented as of this encounter Visit Diagnoses Not on filedocumented in this encounter Care Teams Scrum Master Relationship Specialty Start Date End Date November [facility] [address] [facility] [place] [address] PCP - General 01/12/11 Trupti Denton MD [address] [place] [address] Assigned Surgical Provider 02/07/22 documented as of this encounter
--- OUTSIDE RECORDS SUMMARY | 2024-01-04 14:17 | XMS_ITS | Encounter Summary ---
Author Organization [facility] Address [address] [place] [address]. [place] [address] Care Team Providers Care Reduction Plant Supervisor Name Role Phone November Primary Care Provider Trupti Denton MD Unavailable Encounter Details Date Type Department Care Team (Late Contact Info) Description 02/16/2023 MyC Medical Advice [facility] [address] 4th [place] [address] Lupe oHrner, NESHA Social History Tobacco Use Types Packs/Day [...] Description 03/14/2024 2:30 PM CDT Office Visit [facility] [address] 4th [place] [address] Trupti Denton MD [address] [place] [address] documented as of this encounter Visit Diagnoses Not on filedocumented in this encounter Care Teams Reduction Plant Supervisor Relationship Specialty Start Date End Date November [address] [place] [address] PCP - General 01/12/11 Trupti Denton MD [address] [place] [address] [id number] Assigned Surgical Provider 02/07/22 documented as of this encounter
--- OUTSIDE RECORDS SUMMARY | 2024-01-04 14:17 | XMS_ITS | Encounter Summary ---
Author Organization [employer] Address [address] [place] [address]. [place] [address] Care Team Providers Care Central Office Repairer Name Role Phone November Primary Care Provider [phone] Trupit Denton MD Unavailable Encounter Details Date Type Department Care Team (Late Contact Info) Description 08/11/2023 MyC Medical Advice [facility] [address] [address] Ayden Roberson Social History Tobacco Use Types [...] Description 03/14/2024 2:30 PM CDT Office Visit [facility] [address] [phone] Trupti Denton MD [address] [place] [address] [place] [address] documented as of this encounter Visit Diagnoses Not on filedocumented in this encounter Care Teams Central Office Repairer Relationship Specialty Start Date End Date November [facility] [address] [place] [address] PCP - General 01/12/11 Trupti Denton MD [address] [place] [address] Assigned Surgical Provider 02/07/22 documented as of this encounter
--- OUTSIDE RECORDS SUMMARY | 2024-01-04 14:17 | XMS_ITS | Encounter Summary ---
Author Organization [facility] Address [address] [place] [address] Care Team Providers Care Medical Territory Manager Name Role Phone November Primary Care Provider [phone] Trupti Denton MD Unavailable Reason for Visit * Reason Comments Allied Health Visit Suture removal Encounter Details Date Type Department Care Team (Latest Contact Info) Description 12/24/2023 11:00 AM CDT Allied Health/Nurse Visit [address] [place] [address] Rn, Ri Allied Health Visit (Suture removal) Social History Tobacco Use Types Packs/Day Years [...] as of this encounter Progress Notes * Juany Aden RN - 12/24/2023 11:00 AM CDT Moise Stone presents to the clinic for removal of sutures. The patient has had sutures inplace for 11 days. There has been no patient reported signs or symptoms of infection or drainage. 3sutures are seen and located on the left hand. Tetanus status is up to date. All sutures were easily removed today. Routine wound care discussed by the RN or provider. The patient will follow up as needed. documented in this encounter Plan of Treatment Upcoming Encounters Date Type Department Care Team (Late st Contact Info) Description 03/14/2024 2:30 PM CDT Office Visit [facility] [address] 4th [place] [phone] Trupti Denton MD [address] [place] [address] documented as of this encounter Visit Diagnoses Diagnosis Visit for suture removal- Primary Encounter for removal of sutures documented in this encounter Care Teams Medical Territory Manager Relationship Specialty Start Date End Date November [facility] [address] [place] [address] PCP - General 01/12/11 Trupti Denton MD [address] [place] [address] Assigned Surgical Provider 02/07/22 documented as of this encounter
--- OUTSIDE RECORDS SUMMARY | 2024-01-04 14:17 | XMS_ITS | Encounter Summary ---
Author Organization [facility] Address [address] [place] [address] Care Team Providers Care Bench Technician Name Role Phone November Primary Care [...] Description 03/14/2024 2:30 PM CDT Office Visit [facility] [address] 4th [place] [address] Trupti Denton MD [address] [place] [address] documented as of this encounter Visit Diagnoses Not on filedocumented in this encounter Care Teams Bench Technician Relationship Specialty Start Date End Date maryellennovember [facility] [address] [place] [address] PCP - General 01/12/11 Trupti Denton MD [address] [place] [address] [id number] Assigned Surgical Provider 02/07/22 documented as of this encounter
--- OUTSIDE RECORDS SUMMARY | 2024-01-04 14:17 | XMS_ITS | Encounter Summary ---
Author Organization [place] [facility] Address [address] [place] [address] Care Team Providers Care Foreman/Project Manager Name Role Phone November Primary Care Provider Trupti Denton MD Unavailable Encounter Details Date Type Department Care Team (Latest Contact Info) Description 12/24/2023 Travel Social History Tobacco Use Types Packs/Day [...] Description 03/14/2024 2:30 PM CDT Office Visit [facility] [address] 4th [place] [address] Trupti Denton MD [address] [place] [address] documented as of this encounter Visit Diagnoses Not on filedocumented in this encounter Care Teams Foreman/Project Manager Relationship Specialty Start Date End Date maryellennovember [facility] [address] [place] [address] PCP - General 01/12/11 Trupti Denton MD [address] [place] [address] [id number] Assigned Surgical Provider 02/07/22 documented as of this encounter
--- NOTE | 2024-01-04 14:30 | CRLHL7_ITS ---
For Patients: As a result of the Century Cures Act, medical imaging exams and procedure reports are released immediately into your electronic medical record. You may view this report before your referring provider. If you have questions, please contact your health care provider. INDICATION: Liver lesions. COMPARISON: CT abdomen pelvis with intravenous contrast May 25, 2012 and November 09, 2012. TECHNIQUE: Precontrast T1 and T2 weighted imaging; T2 haste imaging; diffusion-weighted imaging; in- and out of phase imaging; postcontrast imaging including subtraction; 20 cc of dotarem contrast was injected. FINDINGS: A 4.3 x 2.3 cm cavernous hemangioma segment 7 of the liver. A 1 cm cyst segment 8 of the liver. A 2.9 cm cyst segment 5 of the liver. Mild diffuse fatty infiltration of the liver. No focal hepatic or splenic pathology. No pancreatic pathology. The gallbladder is unremarkable. No evidence of biliary duct dilatation. No adrenal pathology. Kidneys are unremarkable. No retroperitoneal lymphadenopathy. No evidence of abdominal ascites. Impression : 1. 4.3 x 2.3 cm cavernous hemangioma in segment 7 of the liver; this was present on the previous CTs;because of the single phase contrast study, cannot be adequately delineated at that time. 2. Simple hepatic cysts in segment 8 and 5 of the liver. 3. Mild diffuse fatty infiltration of the liver Dictated by Emerald Pardo MD @ 01/05/2024 12:57:53 PM (Electronically Signed)
== END 2024-01-04 14:10 | disposition home or self-care (01) ==
LOC: MRI 14:09
PROVIDERS: PCP Physician Assistant Medical; Visit Provider Physician Assistant Medical
DX: K76.89 Other specified diseases of liver (principal); K76.0 Fatty (change of) liver, not elsewhere classified
CPT/HCPCS: 74183; A9575

== ENCOUNTER 2024-01-19 13:45 | Outpatient (CLI) | payer BC, SELFPAY ==
--- OUTSIDE RECORDS SUMMARY | 2024-01-19 14:12 | XMS_ITS | Clinical Summary ---
Author Organization [employer] [facility] Address [place], [place] [address] Care Team Providers Care Help Desk Rep Name Role Phone Clemente John MD Primary Care Provider [phone] Allergies No known active allergies Medications Medication [...] daily. Active methocarbamoL (ROBAXIN) 750 mg tabletIndications:Ac lone pine post-operative pain Take 1 Tablet (750 mg) by mouth every 6 hours if needed for Muscle Spasm. 30 Tablet 06/04/2023 Active sennosides-docusate (SENOKOT S) (8.6-50 mg) tabletIndications:Co nstipation due to opioid therapy Take 1 to 4 Tablets by mouth two times daily. 30 Tablet 06/04/2023 Active acetaminophen (TYLENOL EXTRA STRGTH) 500 mg tabletIndications:Ac lone pine post-operative pain Take 2 Tablets (1,000 mg) by mouth every 6 hours if needed for Pain. Max acetaminophen dose: 4000mg in 24 hrs. 0 06/04/2023 Active oxyCODONE (ROXICODONE) 5 mg immediate release tabletIndications:Ac lone pine post-operative pain Take 1 to 2 Tablets [...] - 12/13/2023 11:59 PM CDT Hospital Encounter [facility] [address] [place] [address] Carmen Hilario MD Arthrodesis status 12/13/2023 Travel 11/02/2023 Orders Only [facility] [address] [place], [place] [id number] Carmen Hilario MD <No scans attached> from [...] this topic Medical Devices Implanted Type Area Equities Analyst Device Identifier Shelf Expiration Date Model / Serial / Lot [id number] Matrix 1cc Kenrick Plus Paste Dbm Implanted:Qty: 1 on 06/04/2023 by Carmen Hilario MD at [facility] N/A: Spine Medtronic Spine/Ortho 05/02/2025 [id number] / [id number] / Bone Cerv 7mm 4 Deg [place] W/P - [id number] Implanted:Qty: 1 on 06/04/2023 by Carmen Hilario MD at [facility] N/A: Spine Blanquita Spine 03/07/2028 [id number] / [id number] / Bone Cerv 7mm 4 Deg [place] W/P - [id number] Implanted:Qty: 1 on 06/04/2023 by Carmen Hilario MD at [facility] N/A: Spine Overton Spine 03/23/2028 [id number] / [id number] / Plate Cerv 34mm 2 Lvl Constrained [place]head Ant Implanted:Qty: 1 on 06/04/2023 by Carmen Hilario MD at [facility] N/A: Spine [id number] / / Description:PLATE CERV 34MM 2 LVL CONSTRAINED OZARK ANT Screw Cerv 4.0x14mm Ant Slf Starting Variable Craighead - [id number] Implanted:Qty: 6 on 06/04/2023 by Carmen Hilario MD at [facility] N/A: Spine Blanquita Spine [id number] / / Explanted Type Area Equities Analyst Device Identifier Shelf Expiration Date Model / Serial / Lot Pin Fixation Coarse Thread Craighead - [id number] Explanted:Qty: 1 on 06/04/2023 by Carmen Hilario MD at [facility] N/A: Spine Blanquita Spine [id number] / / Procedures Procedure Name Priority Date/Time [...] 9:50 AM Procedure Code(s): --- Professional --- 03936, Colonoscopy, flexible; diagnostic, including collection of specimen(s) bybrushing or washing, when performed (separateprocedure) Diagnosis Code(s): --- Professional --- Z12.11, Encounter for screening formalignant neoplasm of colon K57.30, Diverticulosis of large intestine without perforation or abscess withoutbleeding CPT copyright 2020 [employer]. All rights reserved. The codes documented in this report are preliminary and upon data warehouse analyst reviewmay be revised to meet current compliance requirements. Scope In: 10:35:53 AM Scope Withdrawal Time 0 hours 7 minutes 35 seconds Scope Out: 10:48:35 AM Braxton Mendez MD PROCEDURE ORD * LIPID PANEL W REFLEX MEASURED LDL (01/19/2022 1:50 PM CDT) CHOLESTEROL,TOTAL 173 100 - 199 mg/dL 01/20/2022 1:38 AM CDT [facility] TRIGLYCERIDES 61 <150 mg/dL 01/20/2022 1:38 AM CDT [facility] HDL CHOLESTEROL 81 >40 mg/dL 1:38 AM CDT [facility] NON-HDL CHOLESTEROL 92 <145 mg/dl 01/20/2022 1:38 AM CDT [facility] TRAL [facility]ORY CHOL/HDL RATIO 2.14 <4.50 01/20/2022 1:38 AM CDT [facility] LDL CHOLESTEROL 80 <=130 mg/dL 01/20/2022 1:38 AM CDT [facility] VLDL CHOLESTEROL 12 <=30 mg/dL 01/20/2022 1:38 AM CDT [facility] TRAL [facility] PROVIDER ORDERED STATUS RANDOM 01/20/2022 1:38 AM CDT [facility] TR[facility] Blood BLOOD SPECIMEN / Unknown Venipuncture / Unknown 01/19/2022 1:50 PM CDT 01/19/2022 1:50 PM CDT Sudeep GLASS CHEMISTRY [facility] [address] [place] [address], from Last 3 Months or Most Recently Relevant to Health Maintenance Advance Directives * Full Code (Latest Code Status on File) Date Activated Date Inactivated Comments 06/04/2023 2:26 PM 06/05/2023 1:32 PM Question Answer Comments Code Status Discussion: Unable to Assess Preferences, Provider to review later Care Teams Help Desk Rep Relationship Specialty Start Date End Date Clemente John MD [address] [place] [address] PCP - General Family Practice 06/23/21
--- OUTSIDE RECORDS SUMMARY | 2024-01-19 14:12 | XMS_ITS | Continuity of Care Document ---
Author Organization [facility] Address [address] [place] [address] Phone Care Team Providers Care Dietary Tech Name Role Phone Yanelis SHEFFIELD, Amisaida Unavailable Unavailable Allergies, Adverse Reactions, Alerts Substance [...] [facility], [address], [place], [id number], [place] tel:[phone] [facility] Spinal stenosis, cervical region 4 Mehbod Amir. [facility], [address], [place], [id number] , [place]. tel:[phone] Referring Provider: Moshe Ortiz [facility] [address] [place], [address]. tel:[phone] [facility], [address], [place], [id number], [place] tel:[phone] [facility], cervical region 4 Mehbod Amir. [facility], [address], [place], [id number] , [place]. tel:[phone] Referring Provider: Moshe Ortiz [facility] [place] [address] [place], [address]. tel:[phone] Office/Outpat ient Visit,Est, Low [facility], [address], [place], [id number], [place] tel:[phone] [facility] Spinal stenosis, cervical region 3 Mehbod Amir. [facility], [address], [place], [id number] , [place]. tel:[phone] Referring Provider: Moshe Ortiz [facility] [place], [address]. tel:[phone] [facility], [address], [place], [id number], [place] tel:[phone] [facility] No Information - 3 Ning Carpenter. [address] [place] [address], [place], [id number] , [place]. tel:[phone] Referring Provider: [facility] [place], [address]. tel:[phone] [facility], [address], [place], [id number], [place] tel:[phone] [facility] No Information 3 Mehbod Amir. [facility], [address], [facility] [place], [id number] , [place]. tel:[phone] Referring Provider: [facility] [place], [address]. tel:[phone] Office/Outpat ient Visit,New, [facility], [address], [place], [id number], [place] tel:[phone] [facility] [place] Spinal stenosis, cervical region 3 Mehbod Amir. [facility], [address], [place], [place], [id number] , [place]. tel:[phone] Referring Provider: [facility] [address] [place] [address], [address]. tel:[phone] Family History Family Member Type Diagnosis Age At Onset No Information Payers Payer name Insurance type Covered republican ID Brenden white(s) [facility] [address] [facility] [id number] Social History Type Description Quantity Date Captured [...]
== END 2024-01-19 13:46 | disposition home or self-care (01) ==
LOC: FRMREF 14:10
PROVIDERS: PCP Physician Assistant Medical; Referring Provider Physician Assistant Medical; Visit Provider Physician Assistant Medical
DX: R31.9 Hematuria, unspecified (principal); R10.32 Left lower quadrant pain
CPT/HCPCS: 81003; 85027; 87086

== ENCOUNTER 2024-07-20 10:38 | Outpatient (CLI) | payer BC, SELFPAY | END 2024-07-20 10:39 | disposition home or self-care (01) | LOC: NFLDREF 07-21 08:48 | PROVIDERS: PCP Physician Assistant Medical; Referring Provider Physician Assistant Medical; Visit Provider Physician Assistant Medical | DX: I10 Essential (primary) hypertension (principal); E03.9 Hypothyroidism, unspecified; E78.5 Hyperlipidemia, unspecified; N40.1 Benign prostatic hyperplasia with lower urinary tract symptoms; F32.0 Major depressive disorder, single episode, mild; Z12.5 Encounter for screening for malignant neoplasm of prostate | CPT/HCPCS: 80053; 80061; 84439; 84443; G0103 ==

== ENCOUNTER 2024-07-31 07:49 | Outpatient (CLI) | payer BC, SELFPAY | END 2024-07-31 07:50 | disposition home or self-care (01) | LOC: RAD 07:49 | PROVIDERS: PCP Physician Assistant Medical; Visit Provider Physician Assistant Medical | DX: I77.810 Thoracic aortic ectasia (principal); I35.1 Nonrheumatic aortic (valve) insufficiency | CPT/HCPCS: 93306 ==

== ENCOUNTER 2025-04-11 07:32 | Outpatient (CLI) | payer OTHER, SELFPAY | END 2025-04-11 07:33 | disposition home or self-care (01) | LOC: NFLDREF 04-12 07:17 | PROVIDERS: PCP Physician Assistant Medical; Referring Provider Physician Assistant Medical; Visit Provider Family Medicine | DX: R79.89 Other specified abnormal findings of blood chemistry (principal); I10 Essential (primary) hypertension | CPT/HCPCS: 80053; 84443 ==

== ENCOUNTER 2025-04-23 17:15 | Outpatient (CLI) | payer OTHER, SELFPAY ==
--- NOTE | 2025-04-23 17:30 | CRLHL7_ITS ---
For Patients: As a result of the Century Cures Act, medical imaging exams and procedure reports are released immediately into your electronic medical record. You may view this report before your referring provider. If you have questions, please contact your health care provider. Indication: Right foot drop Technique: Multiplanar, multisequence, MRI of the lumbar spine, obtained without contrast. Comparison: None Findings: Preserved lumbar lordosis. Grade 1 retrolisthesis at L3-4. No acute osseous abnormality. Modic type 2 opposing endplate changes at L2-3 and L3-4. No suspicious bone marrow lesion. Conus medullaris terminates at L1-2. Included SI joints are unremarkable. T12-L1: Mild disc bulge. No neural foraminal or spinal canal stenosis. L1-L2: Mild disc bulge, mild facet arthropathy. No left, mild right neural foraminal narrowing. No spinal canal stenosis. L2-L3: Mild disc bulge, left lateral disc-osteophyte complex. Minimal left, mild right neural foraminal narrowing. No spinal canal stenosis. L3-L4: Diffuse disc-osteophyte complex, facet arthropathy. Mild left, moderate right neural foraminal stenosis. No spinal canal stenosis. L4-L5: Diffuse disc bulge, right subarticular protrusion potentially impinging the descending right L5 nerve root along the lateral recess. Facet arthropathy. Moderate bilateral neural foraminal stenosis. No spinal canal stenosis. L5-S1: Shallow central protrusion, right lateral disc-osteophyte complex, mild facet arthropathy. No right, mild left neural foraminal narrowing. No spinal canal stenosis. Impression: 1. Lumbar spondylosis with low-grade degenerative spondylolisthesis and Modic endplate changes as detailed. 2. At L3-L4, moderate right neural foraminal stenosis. 3. At L4-L5, moderate bilateral neural foraminal stenosis with right subarticular disc protrusion potentially impinging the descending right L5 nerve root. 4. Mild neural foraminal narrowing elsewhere as detailed. Dictated by Shannan Wolff MD @ 04/25/2025 12:23:06 PM (Electronically Signed)
== END 2025-04-23 17:16 | disposition home or self-care (01) ==
LOC: MRI 17:15
PROVIDERS: PCP Physician Assistant Medical; Visit Provider Family Medicine
DX: M21.371 Foot drop, right foot (principal); M47.896 Other spondylosis, lumbar region; M48.061 Spinal stenosis, lumbar region without neurogenic claudication
CPT/HCPCS: 72148

== ENCOUNTER 2025-07-13 08:05 | Outpatient (CLI) | payer OTHER, SELFPAY | END 2025-07-13 08:06 | disposition home or self-care (01) | LOC: NFLDREF 07-18 10:12 | PROVIDERS: PCP Physician Assistant Medical; Referring Provider Physician Assistant Medical; Visit Provider Physician Assistant Medical | DX: E78.2 Mixed hyperlipidemia (principal); Z12.5 Encounter for screening for malignant neoplasm of prostate | CPT/HCPCS: 80061; 84450; 84460; G0103 ==

== ENCOUNTER 2025-07-17 09:03 | Inpatient (IN) | payer OTHER, SELFPAY ==
[2025-07-17] VITALS (33 sets, daily range): BP systolic 134–224; BP diastolic 78–126; PULSE 64–83; RESP 16–28; TEMP 36.3–37.1; O2SAT 90–97; BMI 25.8; BMI 25.2
--- NOTE | 2025-07-17 09:32 | CRLHL7_ITS ---
For Patients: As a result of the Century Cures Act, medical imaging exams and procedure reports are released immediately into your electronic medical record. You may view this report before your referring provider. If you have questions, please contact your health care provider. INDICATION: SOB TECHNIQUE: Chest 1 view COMPARISON: 09/08/2023, 09/16/2023 FINDINGS: Chronic elevation right hemidiaphragm with mild volume loss. Left lung clear. No pulmonary edema or pleural effusion. No infiltrate. No pneumothorax. Postop changes lower cervical spine. Stable mediastinum. IMPRESSION: No acute findings. Dictated by Moise Go MD @ 07/17/2025 10:02:25 AM (Electronically Signed)
--- NOTE | 2025-07-17 09:42 | ED.SOB ---
HPI - SOB/Dyspnea General Time Seen by Provider: 09:42 Date Seen: 07/17/25 Chief Complaint: Shortness of Breath/Dyspnea Stated Complaint: Short of breath Time Seen by Provider: 07/17/25 09:42 Source: patient, RN notes reviewed and old records reviewed Mode of arrival: ambulatory Limitations: no limitations History of Present Illness HPI Narrative: This 65-year-old male is presenting with shortness of breath. Patient notes that he started with increasing shortness of breath yesterday. He does take Lasix for lower extremity swelling but notes his legs have been more swollen the last few days. He notes no chest pain. He has not been sick with anything, no cough or cold symptoms. No fevers or chills. He has had some nausea and dry heaves since this started yesterday but no abdominal pain. He also notes a generalized headache without visual changes or neurologic changes. He states he has taken all of his medications as prescribed. He has a history of hypothyroidism, TSH was normal this April. He is noted to have memory loss, lung nodule, history of tongue cancer, liver cyst, dizziness, diverticulitis with history colonic diverticular abscess. He has had cervical spine fusion, lung lobectomy, knee surgery, bilateral inguinal hernia repair, colonoscopy. He is noted to have hypertension, mild ascending aorta dilation. Current medications reviewed. He has an echo from July of 2020 for done for ascending aortic enlargement. This was noted to have normal left ventricular size, normal wall thickness, normal global systolic function, calculated EF of 67%. Right ventricular cavity size normal, global systolic RV function normal. The aortic valve is normal and trileaflet, no stenosis and trivial regurgitation. The ascending aorta is dilated with a maximum diameter of 4.7 cm. The aortic sinus is dilated with a maximal diameter of 4.1 cm. Compared to prior exam of 07/2022, there has been no significant change. MD elicited complaint: shortness of breath Related Data Home Medications ?Medication ?Instructions ?Recorded ?Confirmed aspirin 81 mg tablet,delayed 81 mg PO DAILY 03/03/22 07/17/25 release fluoxetine 20 mg capsule 20 mg PO DAILY 07/17/25 07/17/25 lisinopril 30 mg tablet 30 mg PO HS 07/17/25 07/17/25 simvastatin 20 mg tablet 20 mg PO HS 07/17/25 07/17/25 vitamins A,C,H-ence-ksxivi 4,296 1 cap PO DAILY 07/17/25 07/17/25 mcg-226 mg-90 mg capsule (PreserVision AREDS) Previous Rx's ?Medication ?Instructions ?Recorded furosemide 20 mg tablet 20 mg PO DAILY #90 tabs 05/16/25 carvedilol 3.125 mg tablet 3.125 mg PO BID #180 tabs 05/17/25 levothyroxine 125 mcg tablet 125 mcg PO DAILY #90 tabs 05/17/25 trazodone 50 mg tablet 50 mg PO QHS PRN sleep #90 tabs 07/02/25 Allergies Allergy/AdvReac Type Severity Reaction Status Date / Time No Known Allergies Allergy Unknown Verified 07/17/25 12:01 [facility] Medical History (Updated 07/17/25 @ 13:00 by Lona Gracia MD) 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 ?G57.01 - Lesion of sciatic nerve, right lower limb (ICD-10) Memory loss ?R41.3 - Other amnesia (ICD-10) Lung nodule ?R91.1 - Solitary pulmonary nodule (ICD-10) History of tongue cancer ?Z85.810 - Personal history of malignant neoplasm of tongue (ICD-10) Hemoptysis ?R04.2 - Hemoptysis (ICD-10) Liver cyst ?K76.89 - Other specified diseases of liver (ICD-10) Dizziness ?R42 - Dizziness and giddiness (ICD-10) Diverticulitis of intestine (11/09/12) ?K57.92 - Diverticulitis of intestine, part unspecified, without perforation or abscess without bleeding (ICD-10) 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) ?K57.20 - Diverticulitis of large intestine with perforation and abscess without bleeding (ICD-10) Surgical History (Updated 07/17/25 @ 11:22 by Lona Gracia MD) History of fusion of cervical spine ?Z98.1 - Arthrodesis status (ICD-10) History of spinal surgery ?Z98.890 - Other specified postprocedural states (ICD-10) History of lobectomy of lung ?Z90.2 - Acquired absence of lung [part of] (ICD-10) History of knee surgery ?Z98.890 - Other specified postprocedural states (ICD-10) History of hernia repair ?Z98.890 - Other specified postprocedural states (ICD-10) ?Z87.19 - Personal history of other diseases of the digestive system (ICD-10) History of colonoscopy ?Z98.890 - Other specified postprocedural states (ICD-10) History of bilateral inguinal hernia repair (11/10/12) ?Z98.890 - Other specified postprocedural states (ICD-10) ?Z87.19 - Personal history of other diseases of the digestive system (ICD-10) Social History (Updated 07/17/25 @ 12:49 by Lona Gracia MD) Narrative: Anup lives alone in [place], March 20[birth year]. Works from home. Former smoker, currently drinking 4-5 + beers/day since . Son Jayden would be MDM if needed. Full Code. What is your current living situation?: I presently have a place to live Problems where you live: no known problems In the past 12 months, utilities in danger of being shut off: no In past 12 months, lack of transportation kept you from medical appts, meetings, work, or getting things needed for daily living: no In the past 12 mos, have been you worried that your food would run out before you had money to buy more?: never true In the past 12 mos, the food you bought just didn't last and you didn't have money to buy more?: never true Highest level of school completed/degree received: some college, no degree Smoking Status: Former smoker Second hand tobacco smoke exposure: Yes (both parents smoked) How often do you have a drink containing alcohol: 4 or more times a week Alcohol type: beer and wine How many standard drinks containing alcohol do you have on a typical day: 7 to 9 How often do you have six or more drinks on one occasion: Daily or almost daily AUDIT-C Alcohol total score: 11 Non-prescribed substance use: denies use Caffeine: No How often does anyone, including family, friends and others, physically hurt you: never How often does anyone, including family, friends and others, insult or talk down to you: never How often does anyone, including family, friends and others, threaten you with harm: never How often does anyone, including family, friends and others, scream or curse at you: never service: No Exam Const: Vital Signs, click to edit/add: Vital Signs - 24 hr 07/17/25 09:04 07/17/25 09:12 07/17/25 09:39 Temperature 98.8 F Pulse Rate 74 Pulse Rate [Pulse Oximeter] 78 Respiratory Rate 28 H 23 Blood Pressure Blood Pressure [Ri ght Upper Arm] 224/121 H Pulse Oximetry 95 93 96 Oxygen Delivery Me thod Room Air 07/17/25 09:45 07/17/25 10:00 07/17/25 10:15 Temperature Pulse Rate 80 76 75 Pulse Rate [Pulse Oximeter] Respiratory Rate 19 23 Blood Pressure Blood Pressure [Ri ght Upper Arm] Pulse Oximetry 92 97 95 Oxygen Delivery Me thod 07/17/25 10:18 07/17/25 10:25 07/17/25 10:37 Temperature Pulse Rate 79 79 Pulse Rate [Pulse Oximeter] Respiratory Rate 23 27 H Blood Pressure 191/119 H Blood Pressure [Ri ght Upper Arm] Pulse Oximetry 94 94 Oxygen Delivery Me thod 07/17/25 10:40 07/17/25 10:41 07/17/25 10:45 Temperature Pulse Rate 72 72 72 Pulse Rate [Pulse Oximeter] Respiratory Rate 22 20 Blood Pressure 208/126 H Blood Pressure [Ri ght Upper Arm] Pulse Oximetry 92 94 91 Oxygen Delivery Me thod 07/17/25 11:00 07/17/25 11:02 07/17/25 11:03 Temperature Pulse Rate 72 64 75 Pulse Rate [Pulse Oximeter] Respiratory Rate 17 18 17 Blood Pressure 175/119 H Blood Pressure [Ri ght Upper Arm] Pulse Oximetry 90 91 90 Oxygen Delivery Me thod 07/17/25 11:15 07/17/25 11:30 07/17/25 11:31 Temperature Pulse Rate 68 80 Pulse Rate [Pulse Oximeter] Respiratory Rate 24 20 23 Blood Pressure 189/121 H Blood Pressure [Ri ght Upper Arm] Pulse Oximetry 94 95 Oxygen Delivery Me thod This 65-year-old male is alert, interactive, no apparent distress sitting in his bed in exam room 2. He is breathing easily on room air, speech is normal. He has no tachypnea, no accessory muscle use. Sclera clear, face atraumatic. He has somewhat of a flat affect. Conjugate gaze, symmetric facial function. Neck is supple, no masses, no adenopathy, no thyromegaly masses or nodules, no noted jugular venous distension. He does sit up easily, diminished breath sounds right base posteriorly but otherwise good air entry elsewhere, no wheezing or crackles. CV regular rate and rhythm, no significant murmur, normal S1-S2, no S3-S4. Abdomen is soft, nontender, nondistended, no organomegaly. Has about 3+ pitting edema of his lower extremities, appears symmetrical, no overlying significant erythema or skin changes. He did ambulate into the ED. Nonfocal neurologic examination. Documenting provider has reviewed patient's vital signs: yes Course Course ED Course: This patient has some concerning changes for congestive heart failure. He is having no chest pain and thus doubt that this is off premise service representative of any presentation of dissection or aortic aneurysm. This does make pulmonary emboli less likely given his hypertension. He is on Coreg and could potentially suppress reflexive tachycardia. He states he is taking his medicines and seems to be quite sure about that making medication noncompliance unlikely. I have ordered 40 mg IV Lasix as he does have significant peripheral edema and states this is worse, diminished breath sounds right base which could be a pleural effusion. Will get full complement of labs. Will be doing a portable chest x-ray. Reevaluation(s) Time of Reevaluation #1: 10:22 Reevaluation #1: His chest x-ray really did not show significant evidence of congestive heart failure. He will be given a dose of IV labetalol, we are going to proceed with obtaining head CT as well. Need to see where his labs are before further instituting other medications. We do have some room with his pulse to be able to do some IV labetalol, have ordered 5 mg. Time of Reevaluation #2: 10:51 Reevaluation #2: Most recent blood pressure is 208/106, had come down to 190s systolic with the labetalol. Looking back in his records, blood pressures have been elevated, some in the 180s. His proBNP is elevated, other labs are reassuring, D-dimer is still pending. Troponin is negative. Head CT is normal. I am going to initiate a nitroglycerin drip, believe he has fluid overload, probable right heart failure in hypertensive urgency. Will be talking to the hospitalist about this patient, do not feel we will be able to stabilize adequately for discharge from ED. Time of Reevaluation #3: 11:11 Reevaluation #3: Nursing staff was about to start a nitroglycerin drip but is most recent blood pressure was 175/119. We will hold. I have updated the hospitalists, will still put him in the unit at this time as it is unclear what further management he is going to need, this certainly will be started if his blood pressure does go back up over 180 while here. Patient is aware of the plan for hospitalization and agrees. Do note he is hyponatremic but his chloride is also low. I do think he is fluid overloaded but likely intravascular dry. Hospitalist will address this further. Additional Reevaluation(s): 11:34 a.m.: Patient's D-dimer did come back elevated at 14. Have talked to the hospitalist. She ultimately decided in ordered a chest CT PE protocol on him. He has known ascending aortic dilation but he is having absolutely no chest pain with his symptoms. His hypertensive response could certainly go along with dissection but there is no chest pain. He is feeling short of breath but this ultimately could be from the hypertension itself. He does have fluid overload. We will stick with the chest CT PE protocol at this time. His echo hopefully will be done this afternoon later, if that showing increased aortic root dilation, further imaging could be considered. Right after talking to the hospitalist, patient was over in CT. vocational rehabilitation technician did call me over to look at his toe program. He had significant dilated stomach, multiple dilated loops of bowel. We will do CT abdomen pelvis with IV contrast with his chest CT PE protocol. I did update the hospitalist again. We are going to wait for imaging studies to come back, do think this patient might have a need for transfer with everything that is unfolding. Hospitalist is aware, we will be in touch once we have the CT imaging reports from Radiology back. Patient is just being scanned right now. Consultations Consultation #1: Have talked to hospitalist service, Dr. Connell and Samia both. They accept, he will be unit as he is on a nitroglycerin drip and they agree with this approach at this time. I did put the echo order in for them so this get scheduled. Patient will be inpatient and unit because of the nitroglycerin drip. I will update him on plan. Time: 11:00 Vital Signs Vital signs: Initial Vital Signs Pulse Oximetry 95 07/17/25 09:04 Vital Signs Pulse Oximetry 95 07/17/25 09:04 Temperature 97.4 F L 07/17/25 12:19 Pulse Rate 83 07/17/25 12:19 Respiratory Rate 16 07/17/25 12:19 Blood Pressure 174/117 H 07/17/25 12:26 Pulse Oximetry 95 07/17/25 12:19 Oxygen Delivery Method Room Air 07/17/25 12:19 Medications Administered Medications: Generic Name Dose Route Start Last Admin Trade Name Freq PRN Reason Stop Dose Admin Acetaminophen 975 mg 07/17/25 12:46 07/17/25 12:58 Acetaminophen 325 Mg Tablet PO 975 mg Q6H PRN Administration Discontinued Medications Generic Name Dose Route Start Last Admin Trade Name Freq PRN Reason Stop Dose Admin Furosemide 40 mg 07/17/25 09:47 07/17/25 10:14 Furosemide 10 Mg/Ml Inj IVP 07/17/25 09:48 40 mg ONCE ONE Administration Labetalol HCl 5 mg 07/17/25 10:14 07/17/25 10:25 Labetalol Hcl 5 Mg/Ml Inj IVP 07/17/25 10:15 5 mg ONCE ONE Administration Lorazepam 0.5 mg 07/17/25 12:11 07/17/25 12:57 Lorazepam 2 Mg/Ml Inj IVP 07/17/25 12:12 0.5 mg ONCE ONE Administration Ondansetron HCl 4 mg 07/17/25 10:14 07/17/25 10:25 Ondansetron 2 Mg/Ml Inj IVP 07/17/25 10:15 4 mg ONCE ONE Administration MDM - SOB/Dyspnea Lab Data Attestation: I reviewed the patient's lab results. Labs: Lab Results 07/17/25 07/17/25 07/17/25 Range/Units 09:20 09:48 10:00 WBC 9.44 (4.50-11.00) K/uL RBC 4.68 (4.30-5.90) m/uL Hgb 13.6 (13.5-17.5) gm/dL Hct 40.5 (37.0-53.0) % MCV 87 (80-100) fL MCH 29 (26-34) pg MCHC 34 (32-36) gm/dL RDW Coeff of Frances 12.8 (11.5-15.5) % Plt Count 344 (140-440) K/uL Neut % (Auto) 85.5 H (42.0-72.0) % Lymph % (Auto) 7.6 L (20-44) % Park % (Auto) 6.1 (0.0-11.0) % Eos % (Auto) 0.3 (0.0-7.0) % Baso % (Auto) 0.4 (0.0-3.0) % Neut # (Auto) 8.10 H (1.7-7.0) K/uL Lymph # (Auto) 0.70 L (0.90-2.90) K/uL Park # (Auto) 0.60 (0.00-0.90) K/UL Eos # (Auto) 0.03 (0.00-0.50) K/uL Baso # (Auto) 0.04 (0.00-0.30) K/uL Abs Immat Gran (auto) 0.01 (0.00-0.30) K/uL Imm/Tot Granulo (auto) 0.1 % D-Dimer Quant (PE/DVT) 14.09 H (0.00-0.50) ug/ml VBG pH 7.433 H (7.32-7.43) VBG pCO2 46 (40-50) mmHG VBG pO2 34.5 (25-47) mmHG VBG HCO3 31 H (21-28) mmol/L Sodium 126 L (135-149) mmol/L Potassium 4.1 (3.6-5.1) mmol/L Chloride 85 L (96-114) mmol/L Carbon Dioxide 29 (20-32) mmol/L Anion Gap 12 (7-15) mEq/L BUN 11 (7-30) mg/dL Creatinine 0.5 (0.5-1.5) mg/dL Estimated Creat Clear 78.07 Estimated GFR 115 ml/min Glucose 116 H (60-115) mg/dL Lactate 1.1 (0.5-1.9) mmol/L Calcium 8.9 (8.4-10.6) mg/dL Magnesium 1.6 (1.5-2.6) mg/dL Total Bilirubin 1.8 H (0.1-1.5) mg/dL AST 27 (12-35) U/L ALT 15 (4-50) U/L Alkaline Phosphatase 100 (40-150) U/L POC Troponin I High Sensi 16.5 (2.9-28.0) pg/mL NT-Pro-B Natriuret Pep 2270 H (See Note) pg/mL Total Protein 7.5 (6.0-8.3) g/dL Albumin 4.5 (3.3-5.0) g/dL TSH 0.674 (0.270-4.20) uIU/mL Urine Color Yellow (Yellow) Urine Appearance Clear (Clear) Urine pH 8.0 (5.0-8.5) Ur Specific [place] 1.015 (1.000-1.030) Urine Protein 2+ A (Negative) Urine Glucose (UA) Negative (Negative) Urine Ketones 2+ A (Negative) Urine Blood Trace-intact A (Negative) Urine Nitrite Negative (Negative) Urine Bilirubin Negative (Negative) Urine Urobilinogen 0.2 (0.2-1.0) Ur Leukocyte Esterase Negative (Negative) Urine RBC 0-2 (0-2) Urine WBC 0-2 (0-5) Ur Squamous Epith Cells None (None-Few) Urine Bacteria None (None) SARS-CoV-2 (PCR) Negative SARS-CoV-2 (Negative) Influenza Type A (PCR) Negative PCR FLU A (Negative) Influenza Type B (PCR) Negative PCR FLU B (Negative) RSV (PCR) Negative PCR RSV (Negative) Lab Acknowledgement 07/17/25 Range/Units 10:57 WBC (4.50-11.00) K/uL RBC (4.30-5.90) m/uL Hgb (13.5-17.5) gm/dL Hct (37.0-53.0) % MCV (80-100) fL MCH (26-34) pg MCHC (32-36) gm/dL RDW Coeff of Frances (11.5-15.5) % Plt Count (140-440) K/uL Neut % (Auto) (42.0-72.0) % Lymph % (Auto) (20-44) % Park % (Auto) (0.0-11.0) % Eos % (Auto) (0.0-7.0) % Baso % (Auto) (0.0-3.0) % Neut # (Auto) (1.7-7.0) K/uL Lymph # (Auto) (0.90-2.90) K/uL [place] # (Auto) (0.00-0.90) K/UL Eos # (Auto) (0.00-0.50) K/uL Baso # (Auto) (0.00-0.30) K/uL Abs Immat Gran (auto) (0.00-0.30) K/uL Imm/Tot Granulo (auto) % D-Dimer Quant (PE/DVT) (0.00-0.50) ug/ml VBG pH (7.32-7.43) VBG pCO2 (40-50) mmHG VBG pO2 (25-47) mmHG VBG HCO3 (21-28) mmol/L Sodium (135-149) mmol/L Potassium (3.6-5.1) mmol/L Chloride (96-114) mmol/L Carbon Dioxide (20-32) mmol/L Anion Gap (7-15) mEq/L BUN (7-30) mg/dL Creatinine (0.5-1.5) mg/dL Estimated Creat Clear Estimated GFR ml/min Glucose (60-115) mg/dL Lactate (0.5-1.9) mmol/L Calcium (8.4-10.6) mg/dL Magnesium (1.5-2.6) mg/dL Total Bilirubin (0.1-1.5) mg/dL AST (12-35) U/L ALT (4-50) U/L Alkaline Phosphatase (40-150) U/L POC Troponin I High Sensi (2.9-28.0) pg/mL NT-Pro-B Natriuret Pep (See Note) pg/mL Total Protein (6.0-8.3) g/dL Albumin (3.3-5.0) g/dL TSH (0.270-4.20) uIU/mL Urine Color (Yellow) Urine Appearance (Clear) Urine pH (5.0-8.5) Ur Specific [place] (1.000-1.030) Urine Protein (Negative) Urine Glucose (UA) (Negative) Urine Ketones (Negative) Urine Blood (Negative) Urine Nitrite (Negative) Urine Bilirubin (Negative) Urine Urobilinogen (0.2-1.0) Ur Leukocyte Esterase (Negative) Urine RBC (0-2) Urine WBC (0-5) Ur Squamous Epith Cells (None-Few) Urine Bacteria (None) SARS-CoV-2 (PCR) (Negative) Influenza Type A (PCR) (Negative) Influenza Type B (PCR) (Negative) RSV (PCR) (Negative) Lab Acknowledgement Test Added Imaging Data Chest x-ray: Attestation: I have reviewed the pertinent imaging results. My impression: I do not see any evidence of any congestive heart failure or infiltrate. He does have elevated right hemidiaphragm. Await Radiology over-read. Radiologist's impression: Patient: ANUP FREEMAN Facility:?[facility] Patient ID:?[id number] Site Patient ID:?[id number]. Site :?1960 Study:?XRay-Chest -07/17/2025 9:59:53 AM Ordering Physician:?Margoth Acevedo Final Report: INDICATION: SOB TECHNIQUE: Chest 1 view COMPARISON: 09/08/2023, 09/16/2023 FINDINGS: Chronic elevation right hemidiaphragm with mild volume loss. Left lung clear. No pulmonary edema or pleural effusion. No infiltrate. No pneumothorax. Postop changes lower cervical spine. Stable mediastinum. IMPRESSION: No acute findings. Dictated by Anup Go MD @ 07/17/2025 10:02:25 AM (Electronic Signature) CT scan - head: Attestation: I have reviewed the pertinent imaging results. Radiologist's impression: Patient: ANUP FREEMAN Facility:?[facility] Patient ID:?[id number] Site Patient ID:?[id number]. Site :?1960 Study:?CT-Head WITHOUT-07/17/2025 10:44:27 AM Ordering Physician:Evette Acevedo Final Report: INDICATION: Headache and hypertension TECHNIQUE: CT head without contrast. COMPARISON: None. FINDINGS: CSF spaces: Within normal limits for age. Brain parenchyma: The tucker-white differentiation is normal. No sign of mass, hemorrhage, or midline shift. Skull base and calvarium: Mucous retention cysts within the paranasal sinuses. The visualized orbits are grossly unremarkable. No skull fractures. IMPRESSION: Unremarkable noncontrast head CT. Please note that all CT scans at this facility use dose modulation, iterative reconstruction, and/or weight-based dosing when appropriate to reduce radiation dose to as low as reasonably achievable. Dictated by Naresh Griggs MD @ 07/17/2025 10:49:56 AM (Electronic Signature) CT scan - chest: Attestation: I have reviewed the pertinent imaging results. My impression: Did call Dr. Gracia and reviewed the phone call with CRL. Radiologist's impression: Patient: ANUP FREEMAN Facility:?[facility] Patient ID:?[id number] Site Patient ID:?[id number]. Site :?1960 Study:?CT-Chest Angio 95CC ISOVUE 370-07/17/2025 11:56:02 AM Ordering Physician:Yina Zamorano Final Report: INDICATION: Pulmonary embolism suspected, high probability. TECHNIQUE: CT chest PE was acquired with 100 cc Omnipaque 350 IV contrast. Coronal and MIP reconstructions were performed. COMPARISON: 09/16/2023. FINDINGS: There is indeterminate hypoattenuation within the right interlobar pulmonary artery just adjacent to staple line (series 5, image 85). This is not definitively seen on the subsequent abdominal images. There is otherwise no evidence of dilatation of the main pulmonary artery is noted measuring 4.4 centimeters which can be seen the setting of chronic pulmonary hypertension. The thoracic aorta is mildly aneurysmal measuring 4.1 centimeters, previously approximately 3.9 centimeters. Redemonstrated are postoperative changes from partial right pneumonectomy linear consolidation within the posterior right lower lung involving the staple line is slightly increased compared to the prior examination. Irregular nodularity within the medial basilar left lower lobe appears to be more prominent compared to the prior examination as well with dominant nodule measuring 12 millimeters, previously more ground-glass measuring 9 millimeters (131). There is some left lower lobe bronchial wall thickening with areas of mucous plugging. No pleural effusion or pneumothorax. A 12 millimeter right perihilar lymph node is grossly stable (90). There is otherwise no mediastinal or hilar lymphadenopathy. The heart is prominent and obscured by motion. There is likely left ventricular hypertrophy. No definitive evidence of heart strain. No axillary lymphadenopathy. No chest wall mass. Bone windows demonstrate no acute finding. IMPRESSION: 1. There is subtle indeterminate hypoattenuation within the right interlobar pulmonary artery. It is uncertain whether this represents artifact or a small amount of PE. There is otherwise no gross evidence of PE. Dilatation of the main pulmonary artery suggestive of chronic pulmonary hypertension. 2. Redemonstrated postoperative changes from partial right pneumonectomy. Slight increase in indeterminate linear consolidation along the right staple line compared to 09/16/2023. Short-term chest CT follow-up is recommended in 3 months. 3. Apparent slight increase in nodularity within the medial basilar left lower lobe, obscured by motion artifact. Recommend close attention on follow-up. 4. Prominent heart with no definitive evidence of heart strain. To consider follow-up echocardiogram. Case discussed with Dr. Gracia at approximately 12:25 p.m. on 07/17/2025. Please note that all CT scans at this facility use dose modulation, iterative reconstruction, and/or weight-based dosing when appropriate to reduce radiation dose to as low as reasonably achievable. Dictated by Brian Shannon MD @ 07/17/2025 12:28:55 PM (Electronic Signature) CT scan - abdomen: Attestation: I have reviewed the pertinent imaging results. Radiologist's impression: Patient: ANUP FREEMAN Facility:?[facility] Patient ID:?[id number] Site Patient ID:?[id number]. Site :?1960 Study:?CT-Abdomen/Pelvis 95CC ISOVUE 370-07/17/2025 11:57:21 AM Ordering Physician:?Margoth Acevedo Final Report: INDICATION: Nausea and vomiting. TECHNIQUE: CT abdomen and pelvis acquired with 100 cc Omnipaque 350 IV contrast. COMPARISON: None. FINDINGS: A hyperattenuating mass with peripheral discontinuous enhancement is redemonstrated within the posterior right jessica liver and likely represents a hemangioma given the chronicity. There are other hypoattenuating which likely represent cysts. The gallbladder partially distended and obscured by motion. No gross evidence of acute cholecystitis. No gross biliary ductal dilatation. The spleen is normal in size. There is new perisplenic ascites noted. Pancreas is without stranding or main ductal dilatation. Adrenal glands are unremarkable. The kidneys are without hydronephrosis or perinephric stranding. Subcentimeter hypoattenuating lesion within the left kidney likely represent cysts. 3 millimeter nonobstructing left renal stone. Urinary bladder is partially distended. Evaluation of bowel is limited by motion. There is colonic diverticulosis without gross CT evidence of acute diverticulitis. The cecum is located within the right upper quadrant. Appendix is not definitively seen. There is mild focal thickening and stranding of nondilated loops of small bowel within left abdomen, likely enteritis (series 1, image 84). There is no evidence of a bowel obstruction. The stomach is gas distended. Acute duodenal sweep is noted extending to the right upper quadrant. Mild mesenteric edema. Again noted is the perisplenic ascites. There is no definitive subcapsular fluid as the size and configuration of the spleen is similar compared to the prior. No gross lymphadenopathy. Prominent prostate with calcifications. Moderate fat containing left inguinal hernia. Portal vein is patent. The aorta is normal in caliber. IMPRESSION: Examination is limited by motion. 1. Focal thickening and stranding of loops of small bowel within left upper quadrant as evidence for enteritis. 2. Abnormal configuration of bowel loops clustered within the right upper quadrant. There is no gross evidence of acute obstructing internal hernia. Recommend close monitoring of the patient`s physical examination. 3. New perisplenic ascites. Please note that all CT scans at this facility use dose modulation, iterative reconstruction, and/or weight-based dosing when appropriate to reduce radiation dose to as low as reasonably achievable. Dictated by Brian Shannon MD @ 07/17/2025 12:36:33 PM (Electronic Signature) ECG Data Attestation: I personally reviewed and interpreted this ECG as follows: (Normal sinus rhythm, 70 beats per minute. No ischemia, no infarct. Normal EKG.) ECG interpretation date: 07/17/25 ECG interpretation time: 09:54 Discharge Plan Discharge Clinical Impression: Hypertensive urgency, Acute hyponatremia CHF (congestive heart failure) Qualifiers: Heart failure type: unspecified Heart failure chronicity: acute Qualified Code(s): I50.9 - Heart failure, unspecified Patient Disposition: Admitted As Inpatient Procedures ABG Interpretation ABG Results: 07/17/25 10:00 VBG pH 7.433 H VBG pCO2 46 VBG pO2 34.5 VBG HCO3 31 H
[2025-07-17 09:57] LABS: Appearance Urine Clear (Clear)
[2025-07-17 10:08] LABS: HCO3 VBG 31 mmol/L (21-28); Lactate* 1.1 mmol/L (0.5-1.9); PCO2 VBG 46 mmHG (40-50); PO2 VBG 34.5 mmHG (25-47); pH VBG 7.433 (7.32-7.43)
[2025-07-17 10:11] LABS: Hematocrit* 40.5 % (37.0-53.0); Hemoglobin* 13.6 gm/dL (13.5-17.5); Immature Granulocytes Abs Auto 0.01 K/uL (0.00-0.30); Immature Granulocytes Pct Auto 0.1 %; Mean Corpuscular HGB Conc 34 gm/dL (32-36); Mean Corpuscular Hemoglobin 29 pg (26-34); Mean Corpuscular Volume 87 fL (80-100); RDW Coefficient of Variation % 12.8 % (11.5-15.5); Red Blood Count* 4.68 m/uL (4.30-5.90); White Blood Count* 9.44 K/uL (4.50-11.00)
[2025-07-17 10:13] LABS: Lymphocytes Absolute Auto 0.70 K/uL (0.90-2.90); Slide Review Reflex No
[2025-07-17] MEDS: FUROSEMIDE 10 MG/ML inj 40 MG IVP (10:14)
--- NOTE | 2025-07-17 10:16 | CRLHL7_ITS ---
For Patients: As a result of the Century Cures Act, medical imaging exams and procedure reports are released immediately into your electronic medical record. You may view this report before your referring provider. If you have questions, please contact your health care provider. INDICATION: Headache and hypertension TECHNIQUE: CT head without contrast. COMPARISON: None. FINDINGS: CSF spaces: Within normal limits for age. Brain parenchyma: The tucker-white differentiation is normal. No sign of mass, hemorrhage, or midline shift. Skull base and calvarium: Mucous retention cysts within the paranasal sinuses. The visualized orbits are grossly unremarkable. No skull fractures. IMPRESSION: Unremarkable noncontrast head CT. Please note that all CT scans at this facility use dose modulation, iterative reconstruction, and/or weight-based dosing when appropriate to reduce radiation dose to as low as reasonably achievable. Dictated by Naresh Griggs MD @ 07/17/2025 10:49:56 AM (Electronically Signed)
[2025-07-17] MEDS: ONDANSETRON 2 MG/ML inj 4 MG IVP (10:25)
[2025-07-17] MEDS: LABETALOL HCL 5 MG/ML inj IVP (10:25)
[2025-07-17 10:32] LABS: Albumin* 4.5 g/dL (3.3-5.0); Chloride* 85 mmol/L (96-114)
[2025-07-17 10:33] LABS: Potassium* 4.1 mmol/L (3.6-5.1); Sodium* 126 mmol/L (135-149)
[2025-07-17 10:35] LABS: Alanine Aminotransferase* 15 U/L (4-50); Anion Gap 12 mEq/L (7-15); Aspartate Amino Transferase* 27 U/L (12-35); Blood Urea Nitrogen* 11 mg/dL (7-30); Carbon Dioxide* 29 mmol/L (20-32); Creatinine* 0.5 mg/dL (0.5-1.5); Est. Creatinine Clearance* 78.07; Estimated Glomerular Filt Rate 115 ml/min
[2025-07-17 10:36] LABS: Alkaline Phosphatase* 100 U/L (40-150); Bilirubin Total* 1.8 mg/dL (0.1-1.5); Calcium* 8.9 mg/dL (8.4-10.6); Glucose* 116 mg/dL (60-115); Total Protein* 7.5 g/dL (6.0-8.3)
[2025-07-17 10:42] LABS: PCR FLU A Negative PCR FLU A (Negative); PCR FLU B Negative PCR FLU B (Negative); PCR RSV Negative PCR RSV (Negative); SARS PCR* Negative SARS-CoV-2 (Negative)
[2025-07-17 10:45] LABS: D Dimer Quantitative* 14.09 ug/ml (0.00-0.50)
[2025-07-17 10:46] LABS: NT Pro B Type NatriureticPept* 2270 pg/mL (See Note)
--- NOTE | 2025-07-17 11:14 | CRLHL7_ITS ---
For Patients: As a result of the Century Cures Act, medical imaging exams and procedure reports are released immediately into your electronic medical record. You may view this report before your referring provider. If you have questions, please contact your health care provider. INDICATION: Pulmonary embolism suspected, high probability. TECHNIQUE: CT chest PE was acquired with 100 cc Omnipaque 350 IV contrast. Coronal and MIP reconstructions were performed. COMPARISON: 09/16/2023. FINDINGS: There is indeterminate hypoattenuation within the right interlobar pulmonary artery just adjacent to staple line (series 5, image 85). This is not definitively seen on the subsequent abdominal images. There is otherwise no evidence of dilatation of the main pulmonary artery is noted measuring 4.4 centimeters which can be seen the setting of chronic pulmonary hypertension. The thoracic aorta is mildly aneurysmal measuring 4.1 centimeters, previously approximately 3.9 centimeters. Redemonstrated are postoperative changes from partial right pneumonectomy linear consolidation within the posterior right lower lung involving the staple line is slightly increased compared to the prior examination. Irregular nodularity within the medial basilar left lower lobe appears to be more prominent compared to the prior examination as well with dominant nodule measuring 12 millimeters, previously more ground-glass measuring 9 millimeters (131). There is some left lower lobe bronchial wall thickening with areas of mucous plugging. No pleural effusion or pneumothorax. A 12 millimeter right perihilar lymph node is grossly stable (90). There is otherwise no mediastinal or hilar lymphadenopathy. The heart is prominent and obscured by motion. There is likely left ventricular hypertrophy. No definitive evidence of heart strain. No axillary lymphadenopathy. No chest wall mass. Bone windows demonstrate no acute finding. IMPRESSION: 1. There is subtle indeterminate hypoattenuation within the right interlobar pulmonary artery. It is uncertain whether this represents artifact or a small amount of PE. There is otherwise no gross evidence of PE. Dilatation of the main pulmonary artery suggestive of chronic pulmonary hypertension. 2. Redemonstrated postoperative changes from partial right pneumonectomy. Slight increase in indeterminate linear consolidation along the right staple line compared to 09/16/2023. Short-term chest CT follow-up is recommended in 3 months. 3. Apparent slight increase in nodularity within the medial basilar left lower lobe, obscured by motion artifact. Recommend close attention on follow-up. 4. Prominent heart with no definitive evidence of heart strain. To consider follow-up echocardiogram. Case discussed with Dr. Gracia at approximately 12:25 p.m. on 07/17/2025. Please note that all CT scans at this facility use dose modulation, iterative reconstruction, and/or weight-based dosing when appropriate to reduce radiation dose to as low as reasonably achievable. Dictated by Brian Shannon MD @ 07/17/2025 12:28:55 PM (Electronically Signed)
--- NOTE | 2025-07-17 11:27 | PM.IMHP1 ---
Assessment and Plan Assessment and plan (1) Hypertensive urgency: Problem comment: - no evidence of end-organ damage, will optimize po medication regimen for control - possibly ETOH withdrawal contributing - requires close monitoring with telemetry, serial BP checks - will increase Carvedilol to 6.25mg BID (from 3.125mg BID), receiving IV Lasix for concern of HFrEF, continue home dose of Lisinopril Status: Acute (2) Enteritis: Problem comment: - likely source of nausea and dry heaving - hungry upon arrival to the floor, will start with clears and advance as tolerated - no surgical needs identified at this time Status: Acute (3) CHF (congestive heart failure): Problem comment: - clinical concern for CHF given increase in LE edema, elevated BNP - repeat TTE urgently to evaluate, especially in light of HTN urgency Status: Acute (4) Acute hyponatremia: Problem comment: - admission Na 126 (has been between 126-140 per chart review) - ddx: increased free water intake during acute illness, ETOH use, CHF - TTE pending, follow sodium and anticipate improvement with po intake, GDMT optimization, will not fluid restrict at this time Status: Acute (5) Ascites: Problem comment: - new perisplenic ascites on 07/17 imaging - no abnormal liver morphology - evaluate EF with TTE, follow LFTs Status: Acute (6) Acquired hypothyroidism: Problem comment: - TSH stable but suppressed, continue replacement at lower dose (125mcg -> 100mcg on 07/17/25) Status: Acute (7) Alcohol use disorder: Problem comment: - has been drinking 5+ beers/day since March 2025 - last drink 07/15 - monitor CIWAs, prn Ativan Status: Acute (8) Abnormal CT of the chest: Problem comment: - Findings from CT 07/17/25: Redemonstrated postoperative changes from partial right pneumonectomy. Slight increase in indeterminate linear consolidation along the right staple line compared to 09/16/2023. Short-term chest CT follow-up is recommended in 3 months. - also on CT: Apparent slight increase in nodularity within the medial basilar left lower lobe, obscured by motion artifact. Recommend close attention on follow-up. Status: Acute Plan - per above (diuresis, slowly titrate oral HTN medications, TTE, follow GI symptoms) - Lovenox for ppx Hospitalist- H&P: HPI History of Present Illness Date Seen: 07/17/25 Chief complaint: Short of breath Narrative: Moise Stone is a 65 year old male who presented to the ER today for dyspnea, headache, nausea, dry heaving, and abdominal discomfort for the past 2 days. Symptoms began yesterday afternoon. No recent travel or offending foods. Hasn't actually vomited or had diarrhea, just nausea and headache. Passing gas. Was able to take his home medications this morning. Typically drinks 5+ beers per day, wasn't able to drink any yesterday 2/2 symptoms. Took home medications this morning prior to ER arrival. ER Course and Findings: - presenting BP 224/121 - head CT negative - received IV Labetalol x1, IV Furosemide x1 - reassuring CBC, Na 126, Creatinine 0.5, BNP 2270 - D-Dimer 14, no obvious acute PE on imaging (area of indeterminate hypoattenuation in right pulmonary artery, postoperative changes from history of right partial pneumonectomy, increased nodularity in left lower lobe) - CT A/P: enteritis, bowel loops in RUQ without obvious hernia, new perisplenic ascites Upon arrival to the floor, patient is feeling somewhat better. His headache has improved. He is hungry. Histories reviewed and updated below. Elin Peterson is PCP. Review of Systems Status of ROS: Reports: 10 or more systems reviewed and unremarkable except as noted in History and below Narrative: - specifically denies chest pain - no vision changes - no focal neurological deficits Medical Decision Making Medical Decision Making Code Status: Full Has patient completed a Health Care Directive: No During This Stay, Who Would You Like To Make Decisions For You In The Event You Are Unable To Make Them For Yourself?: Son Jayden [facility] Medical History (Updated 07/17/25 @ 13:41 by Lona Gracia MD) Depression ?F32.A - Depression, unspecified (ICD-10) BPH (benign prostatic hyperplasia) ?N40.0 - Benign prostatic hyperplasia without lower urinary tract symptoms (ICD-10) Hyperlipidemia ?E78.5 - Hyperlipidemia, unspecified (ICD-10) Foot drop ?M21.379 - Foot drop, unspecified foot (ICD-10) Diverticulosis ?K57.90 - Diverticulosis of intestine, part unspecified, without perforation or abscess without bleeding (ICD-10) 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 ?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 - Lesion of sciatic nerve, right lower limb (ICD-10) Memory loss ?R41.3 - Other amnesia (ICD-10) Lung nodule ?R91.1 - Solitary pulmonary nodule (ICD-10) History of tongue cancer ?Z85.810 - Personal history of malignant neoplasm of tongue (ICD-10) Hemoptysis ?R04.2 - Hemoptysis (ICD-10) Liver cyst ?K76.89 - Other specified diseases of liver (ICD-10) Dizziness ?R42 - Dizziness and giddiness (ICD-10) 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) ?K57.20 - Diverticulitis of large intestine with perforation and abscess without bleeding (ICD-10) Surgical History (Updated 07/17/25 @ 11:22 by Lona Gracia MD) History of fusion of cervical spine ?Z98.1 - Arthrodesis status (ICD-10) History of spinal surgery ?Z98.890 - Other specified postprocedural states (ICD-10) History of lobectomy of lung ?Z90.2 - Acquired absence of lung [part of] (ICD-10) History of knee surgery ?Z98.890 - Other specified postprocedural states (ICD-10) History of hernia repair ?Z98.890 - Other specified postprocedural states (ICD-10) ?Z87.19 - Personal history of other diseases of the digestive system (ICD-10) History of colonoscopy ?Z98.890 - Other specified postprocedural states (ICD-10) History of bilateral inguinal hernia repair (11/10/12) ?Z98.890 - Other specified postprocedural states (ICD-10) ?Z87.19 - Personal history of other diseases of the digestive system (ICD-10) Social History (Updated 07/17/25 @ 12:49 by Lona Gracia MD) Narrative: Moise lives alone in [place], March 2025. Works from home. Former smoker, currently drinking 4-5 + beers/day since . Son Jayden would be MDM if needed. Full Code. What is your current living situation?: I presently have a place to live Problems where you live: no known problems In the past 12 months, utilities in danger of being shut off: no In past 12 months, lack of transportation kept you from medical appts, meetings, work, or getting things needed for daily living: no In the past 12 mos, have been you worried that your food would run out before you had money to buy more?: never true In the past 12 mos, the food you bought just didn't last and you didn't have money to buy more?: never true Highest level of school completed/degree received: some college, no degree Smoking Status: Former smoker Second hand tobacco smoke exposure: Yes (both parents smoked) How often do you have a drink containing alcohol: 4 or more times a week Alcohol type: beer and wine How many standard drinks containing alcohol do you have on a typical day: 7 to 9 How often do you have six or more drinks on one occasion: Daily or almost daily AUDIT-C Alcohol total score: 11 Non-prescribed substance use: denies use Caffeine: No How often does anyone, including family, friends and others, physically hurt you: never How often does anyone, including family, friends and others, insult or talk down to you: never How often does anyone, including family, friends and others, threaten you with harm: never How often does anyone, including family, friends and others, scream or curse at you: never service: No Meds Home Medications and Allergies Home Medications ?Medication ?Instructions ?Recorded ?Confirmed ?Type aspirin 81 mg tablet,delayed 81 mg PO DAILY 03/03/22 07/17/25 History release furosemide 20 mg tablet 20 mg PO DAILY #90 tabs 05/16/25 07/17/25 Rx carvedilol 3.125 mg tablet 3.125 mg PO BID #180 tabs 05/17/25 07/17/25 Rx levothyroxine 125 mcg tablet 125 mcg PO DAILY #90 tabs 05/17/25 07/17/25 Rx trazodone 50 mg tablet 50 mg PO QHS PRN sleep #90 tabs 07/02/25 07/17/25 Rx fluoxetine 20 mg capsule 20 mg PO DAILY 07/17/25 07/17/25 History lisinopril 30 mg tablet 30 mg PO HS 07/17/25 07/17/25 History simvastatin 20 mg tablet 20 mg PO HS 07/17/25 07/17/25 History vitamins A,C,[id number]-rmkj-[id number] 4,296 1 cap PO DAILY 07/17/25 07/17/25 History mcg-226 mg-90 mg capsule (PreserVision AREDS) Home Medication Comments: - took home medications 12/9 am Allergies Allergy/AdvReac Type Severity Reaction Status Date / Time No Known Allergies Allergy Unknown Verified 07/17/25 12:01 Exam Narrative: Exam Narrative: GEN: Alert and oriented, answering questions appropriately HEENT: EOMIs bilaterally, no scleral icterus CV: RRR, No concerning murmurs R: LCTA bilaterally Ab: Soft, no distention, tolerates palpation, mass superior to umbilicus c/w hernia, reducible. Negative Hancock sign Ext: 2+ bilateral lower extremity pitting edema Skin: No concerning skin lesions or rashes on exposed skin Neuro: No focal deficits on limited exam, no resting tremor, gait not observed Psych: Appropriate Const: Vital Signs, click to edit/add: Vital Signs - 24 hr 07/17/25 09:04 07/17/25 09:12 07/17/25 09:39 Temperature 98.8 F Pulse Rate 74 Pulse Rate [Pulse Oximeter] 78 Respiratory Rate 28 H 23 Blood Pressure Blood Pressure [Ri ght Upper Arm] 224/121 H Pulse Oximetry 95 93 96 Oxygen Delivery Me thod Room Air 07/17/25 09:45 07/17/25 10:00 07/17/25 10:15 Temperature Pulse Rate 80 76 75 Pulse Rate [Pulse Oximeter] Respiratory Rate 19 23 Blood Pressure Blood Pressure [Ri ght Upper Arm] Pulse Oximetry 92 97 95 Oxygen Delivery Me thod 07/17/25 10:18 07/17/25 10:25 07/17/25 10:37 Temperature Pulse Rate 79 79 Pulse Rate [Pulse Oximeter] Respiratory Rate 23 27 H Blood Pressure 191/119 H Blood Pressure [Ri ght Upper Arm] Pulse Oximetry 94 94 Oxygen Delivery Me thod 07/17/25 10:40 07/17/25 10:41 07/17/25 10:45 Temperature Pulse Rate 72 72 72 Pulse Rate [Pulse Oximeter] Respiratory Rate 22 20 Blood Pressure 208/126 H Blood Pressure [Ri ght Upper Arm] Pulse Oximetry 92 94 91 Oxygen Delivery Me thod 07/17/25 11:00 07/17/25 11:02 Temperature Pulse Rate 72 64 Pulse Rate [Pulse Oximeter] Respiratory Rate 17 18 Blood Pressure 175/119 H Blood Pressure [Ri ght Upper Arm] Pulse Oximetry 90 [address]xygen [address] [facility] Hospitalist - H&P: Result Labs Labs: Short CBC 07/17/25 Range/Units 10:00 WBC 9.44 (4.50-11.00) K/uL Hgb 13.6 (13.5-17.5) gm/dL Hct 40.5 (37.0-53.0) % Plt Count 344 (140-440) K/uL BMP 07/17/25 10:00 Sodium 126 L Potassium 4.1 Chloride 85 L Carbon Dioxide 29 BUN 11 Creatinine 0.5 Glucose 116 H Calcium 8.9 Liver Function 07/17/25 Range/Units 10:00 Total Bilirubin 1.8 H (0.1-1.5) mg/dL AST 27 (12-35) U/L ALT 15 (4-50) U/L Alkaline Phosphatase 100 (40-150) U/L Albumin 4.5 (3.3-5.0) g/dL Urine 07/17/25 Range/Units 09:48 Urine Color Yellow (Yellow) Urine Appearance Clear (Clear) Urine pH 8.0 (5.0-8.5) Ur Specific [place] 1.015 (1.000-1.030) Urine Protein 2+ A (Negative) Urine Glucose (UA) Negative (Negative) INDICATION: Nausea and vomiting. TECHNIQUE: CT abdomen and pelvis acquired with 100 cc Omnipaque 350 IV contrast. COMPARISON: None. FINDINGS: A hyperattenuating mass with peripheral discontinuous enhancement is redemonstrated within the posterior right jessica liver and likely represents a hemangioma given the chronicity. There are other hypoattenuating which likely represent cysts. The gallbladder partially distended and obscured by motion. No gross evidence of acute cholecystitis. No gross biliary ductal dilatation. The spleen is normal in size. There is new perisplenic ascites noted. Pancreas is without stranding or main ductal dilatation. Adrenal glands are unremarkable. The kidneys are without hydronephrosis or perinephric stranding. Subcentimeter hypoattenuating lesion within the left kidney likely represent cysts. 3 millimeter nonobstructing left renal stone. Urinary bladder is partially distended. Evaluation of bowel is limited by motion. There is colonic diverticulosis without gross CT evidence of acute diverticulitis. The cecum is located within the right upper quadrant. Appendix is not definitively seen. There is mild focal thickening and stranding of nondilated loops of small bowel within left abdomen, likely enteritis (series 1, image 84). There is no evidence of a bowel obstruction. The stomach is gas distended. Acute duodenal sweep is noted extending to the right upper quadrant. Mild mesenteric edema. Again noted is the perisplenic ascites. There is no definitive subcapsular fluid as the size and configuration of the spleen is similar compared to the prior. No gross lymphadenopathy. Prominent prostate with calcifications. Moderate fat containing left inguinal hernia. Portal vein is patent. The aorta is normal in caliber. IMPRESSION: Examination is limited by motion. 1. Focal thickening and stranding of loops of small bowel within left upper quadrant as evidence for enteritis. 2. Abnormal configuration of bowel loops clustered within the right upper quadrant. There is no gross evidence of acute obstructing internal hernia. Recommend close monitoring of the patient`s physical examination. 3. New perisplenic ascites. Please note that all CT scans at this facility use dose modulation, iterative reconstruction, and/or weight-based dosing when appropriate to reduce radiation dose to as low as reasonably achievable. INDICATION: Pulmonary embolism suspected, high probability. TECHNIQUE: CT chest PE was acquired with 100 cc Omnipaque 350 IV contrast. Coronal and MIP reconstructions were performed. COMPARISON: 09/16/2023. FINDINGS: There is indeterminate hypoattenuation within the right interlobar pulmonary artery just adjacent to staple line (series 5, image 85). This is not definitively seen on the subsequent abdominal images. There is otherwise no evidence of dilatation of the main pulmonary artery is noted measuring 4.4 centimeters which can be seen the setting of chronic pulmonary hypertension. The thoracic aorta is mildly aneurysmal measuring 4.1 centimeters, previously approximately 3.9 centimeters. Redemonstrated are postoperative changes from partial right pneumonectomy linear consolidation within the posterior right lower lung involving the staple line is slightly increased compared to the prior examination. Irregular nodularity within the medial basilar left lower lobe appears to be more prominent compared to the prior examination as well with dominant nodule measuring 12 millimeters, previously more ground-glass measuring 9 millimeters (131). There is some left lower lobe bronchial wall thickening with areas of mucous plugging. No pleural effusion or pneumothorax. A 12 millimeter right perihilar lymph node is grossly stable (90). There is otherwise no mediastinal or hilar lymphadenopathy. The heart is prominent and obscured by motion. There is likely left ventricular hypertrophy. No definitive evidence of heart strain. No axillary lymphadenopathy. No chest wall mass. Bone windows demonstrate no acute finding. IMPRESSION: 1. There is subtle indeterminate hypoattenuation within the right interlobar pulmonary artery. It is uncertain whether this represents artifact or a small amount of PE. There is otherwise no gross evidence of PE. Dilatation of the main pulmonary artery suggestive of chronic pulmonary hypertension. 2. Redemonstrated postoperative changes from partial right pneumonectomy. Slight increase in indeterminate linear consolidation along the right staple line compared to 09/16/2023. Short-term chest CT follow-up is recommended in 3 months. 3. Apparent slight increase in nodularity within the medial basilar left lower lobe, obscured by motion artifact. Recommend close attention on follow-up. 4. Prominent heart with no definitive evidence of heart strain. To consider follow-up echocardiogram. Case discussed with Dr. Gracia at approximately 12:25 p.m. on 07/17/2025. Please note that all CT scans at this facility use dose modulation, iterative reconstruction, and/or weight-based dosing when appropriate to reduce radiation dose to as low as reasonably achievable.
--- NOTE | 2025-07-17 11:40 | CRLHL7_ITS ---
For Patients: As a result of the Century Cures Act, medical imaging exams and procedure reports are released immediately into your electronic medical record. You may view this report before your referring provider. If you have questions, please contact your health care provider. INDICATION: Nausea and vomiting. TECHNIQUE: CT abdomen and pelvis acquired with 100 cc Omnipaque 350 IV contrast. COMPARISON: None. FINDINGS: A hyperattenuating mass with peripheral discontinuous enhancement is redemonstrated within the posterior right jessica liver and likely represents a hemangioma given the chronicity. There are other hypoattenuating which likely represent cysts. The gallbladder partially distended and obscured by motion. No gross evidence of acute cholecystitis. No gross biliary ductal dilatation. The spleen is normal in size. There is new perisplenic ascites noted. Pancreas is without stranding or main ductal dilatation. Adrenal glands are unremarkable. The kidneys are without hydronephrosis or perinephric stranding. Subcentimeter hypoattenuating lesion within the left kidney likely represent cysts. 3 millimeter nonobstructing left renal stone. Urinary bladder is partially distended. Evaluation of bowel is limited by motion. There is colonic diverticulosis without gross CT evidence of acute diverticulitis. The cecum is located within the right upper quadrant. Appendix is not definitively seen. There is mild focal thickening and stranding of nondilated loops of small bowel within left abdomen, likely enteritis (series 1, image 84). There is no evidence of a bowel obstruction. The stomach is gas distended. Acute duodenal sweep is noted extending to the right upper quadrant. Mild mesenteric edema. Again noted is the perisplenic ascites. There is no definitive subcapsular fluid as the size and configuration of the spleen is similar compared to the prior. No gross lymphadenopathy. Prominent prostate with calcifications. Moderate fat containing left inguinal hernia. Portal vein is patent. The aorta is normal in caliber. IMPRESSION: Examination is limited by motion. 1. Focal thickening and stranding of loops of small bowel within left upper quadrant as evidence for enteritis. 2. Abnormal configuration of bowel loops clustered within the right upper quadrant. There is no gross evidence of acute obstructing internal hernia. Recommend close monitoring of the patient`s physical examination. 3. New perisplenic ascites. Please note that all CT scans at this facility use dose modulation, iterative reconstruction, and/or weight-based dosing when appropriate to reduce radiation dose to as low as reasonably achievable. Dictated by Brian Shannon MD @ 07/17/2025 12:36:33 PM (Electronically Signed)
[2025-07-17] MEDS: ACETAMINOPHEN 325 MG TABLET 975 MG PO (12:58)
--- NOTE | 2025-07-17 13:40 | RESP.RT ---
Patient seen for SOB, Up in bed, SaO2 95% on room air, breathing regular/easy, No SOB noted. Patient has cardiac history, Right lower lobectomy. BBS absent over that area. Other lungs conti, clear, good air movement, no wheeze or rhonchi noted. No home respiratory medications, Lasix for legs edema.
[2025-07-17] MEDS: THIAMINE 100 MG TABLET PO (14:04)
[2025-07-17 15:01] LABS: HCO3 VBG 32 mmol/L (21-28); PCO2 VBG 45 mmHG (40-50); PO2 VBG 44.1 mmHG (25-47); pH VBG 7.459 (7.32-7.43)
[2025-07-17 15:35] LABS: Chloride* 86 mmol/L (96-114); Potassium* 3.6 mmol/L (3.6-5.1); Sodium* 127 mmol/L (135-149)
[2025-07-17 15:38] LABS: Anion Gap 11 mEq/L (7-15); Blood Urea Nitrogen* 11 mg/dL (7-30); Calcium* 8.5 mg/dL (8.4-10.6); Carbon Dioxide* 30 mmol/L (20-32); Creatinine* 0.6 mg/dL (0.5-1.5); Est. Creatinine Clearance* 78.07; Estimated Glomerular Filt Rate 108 ml/min; Glucose* 103 mg/dL (60-115)
[2025-07-17] MEDS: FUROSEMIDE 10 MG/ML inj 20 MG IVP (15:46)
[2025-07-17] MEDS: SODIUM CHLORIDE 0.9 % (FLUSH) 10 ML SYRINGE 5 ML IVF ×2 (15:46→20:56)
[2025-07-17] MEDS: ONDANSETRON ODT 4 MG TAB PO (16:47)
--- NOTE | 2025-07-17 18:07 | PC.NURSE ---
End of shift-- Very pleasant and cooperative, alert and oriented patient was admitted to med-surg via wheelchair from ED. VSS, though pt is hypertensive (see EMR for details) and pt is afebrile. SPO2 maintained >90% on RA. He c/o a headache which improved with Tylenol and has denied any other pain. Right base of lungs diminished to absent on auscultation, with slight rub, otherwise CTA. He c/o mild nausea this evening and was given ODT Zofran per Md order. He is tolerating a regular diet. CIWAs 1-3. Pt is up independently and tolerated it well. Report to NESHA Mackenzie.
[2025-07-17] MEDS: ENOXAPARIN 40 MG/0.4 ML INJ SUBCUT (20:55)
[2025-07-17] MEDS: SIMVASTATIN 20 MG TABLET PO (20:56)
[2025-07-17] MEDS: SENNOSIDES/DOCUSATE TABLET 1 TAB PO (20:56)
[2025-07-18 04:05] VITALS: BP 148/82; PULSE 93; RESP 16; TEMP 36.4; O2SAT 94
--- NOTE | 2025-07-18 05:38 | PC.NURSE ---
[id number] shift note: Pt A&Ox4 and able to make needs known. He has been denying pain and nausea throughout the shift. Pt transferring/ambulating independently in?room. VSS- pt has been afebrile and on RA throughout the shift. Pt denies shortness of breath when asked and feels like this has been improving. Pt?continent?of bladder using?urinal in?bathroom. He is SL and?tolerating?regular diet. Tele in place?with NSR noted. Minimal CIWA scores.?Call light within reach.?Report given to NESHA Gilliam.
--- NOTE | 2025-07-18 06:20 | PC.NURSE ---
[id number]:?Pt pleasant,?alert?and oriented. Independent in room. Pt in bed, appears to be resting, call light within reach.
[2025-07-18] MEDS: LEVOTHYROXINE 100 MCG TABLET PO (06:49)
[2025-07-18 07:00] VITALS: BP 175/115; PULSE 71; PULSE 93; RESP 16; TEMP 36.4; O2SAT 95
[2025-07-18] MEDS: ONDANSETRON ODT 4 MG TAB PO (07:23)
[2025-07-18] MEDS: ACETAMINOPHEN 325 MG TABLET 975 MG PO (07:23)
[2025-07-18 07:32] LABS: Hematocrit* 40.3 % (37.0-53.0); Hemoglobin* 13.4 gm/dL (13.5-17.5); Immature Granulocytes Abs Auto 0.01 K/uL (0.00-0.30); Immature Granulocytes Pct Auto 0.1 %; Mean Corpuscular HGB Conc 33 gm/dL (32-36); Mean Corpuscular Hemoglobin 29 pg (26-34); Mean Corpuscular Volume 88 fL (80-100); RDW Coefficient of Variation % 13.0 % (11.5-15.5); Red Blood Count* 4.57 m/uL (4.30-5.90); White Blood Count* 7.64 K/uL (4.50-11.00)
[2025-07-18 07:35] LABS: Lymphocytes Absolute Auto 0.90 K/uL (0.90-2.90); Slide Review Reflex No
[2025-07-18 07:46] LABS: Albumin* 4.0 g/dL (3.3-5.0); Chloride* 87 mmol/L (96-114); Potassium* 4.1 mmol/L (3.6-5.1); Sodium* 132 mmol/L (135-149)
[2025-07-18 07:49] LABS: Alanine Aminotransferase* 12 U/L (4-50); Alkaline Phosphatase* 81 U/L (40-150); Anion Gap 11 mEq/L (7-15); Aspartate Amino Transferase* 21 U/L (12-35); Bilirubin Total* 0.8 mg/dL (0.1-1.5); Blood Urea Nitrogen* 12 mg/dL (7-30); Carbon Dioxide* 34 mmol/L (20-32); Creatinine* 0.6 mg/dL (0.5-1.5); Est. Creatinine Clearance* 78.07; Estimated Glomerular Filt Rate 108 ml/min; Total Protein* 6.8 g/dL (6.0-8.3)
[2025-07-18 07:50] LABS: Calcium* 8.6 mg/dL (8.4-10.6); Glucose* 98 mg/dL (60-115)
[2025-07-18] MEDS: FLUOXETINE HCL 20 MG CAPSULE PO (08:24)
[2025-07-18] MEDS: FOLIC ACID 1 MG TABLET PO (08:24)
[2025-07-18] MEDS: ASPIRIN 81 MG TABLET EC PO (08:24)
[2025-07-18] MEDS: SENNOSIDES/DOCUSATE TABLET 1 TAB PO (08:24)
[2025-07-18] MEDS: MULTIVITAMIN/MINERALS 1 TABLET 1 TAB PO (08:24)
[2025-07-18] MEDS: SODIUM CHLORIDE 0.9 % (FLUSH) 10 ML SYRINGE 5 ML IVF (08:25)
[2025-07-18 08:54] VITALS: RESP 16; O2SAT 95
--- NOTE | 2025-07-18 08:57 | RESP.RT ---
Patient seen for SOB, Up in Chair, SaO2 95% on room air, breathing regular/easy, No SOB noted. Patient has cardiac history, Right lower lobectomy. BBS absent over that area. Other lungs conti, clear, good air movement, no wheeze or rhonchi noted. some transit noted in RLL. No home respiratory medications, Lasix for legs edema.
--- NOTE | 2025-07-18 11:55 | PM.DS1 ---
DS: Providers Provider Date Seen: 07/18/25 Date of admission: 07/17/25 13:10 Primary care physician: Elin Peterson PA-C Admitting Clinician: Elsa Connell MD Attending Physician on discharge: Lona Gracia MD Date of Discharge: 07/18/25 DS: Diagnosis Discharge Diagnosis (1) Hypertensive urgency: Status: Acute Problem details: - no evidence of end-organ damage, will optimize po medication regimen for control - possibly ETOH withdrawal contributing - requires close monitoring with telemetry, serial BP checks - will increase Carvedilol to 6.25mg BID (from 3.125mg BID), received IV Lasix for concern of HFrEF, continued home dose of Lisinopril - stable and improved BP on 07/18, appropriate for d/c home on higher dose of Carvedilol, close PCP f/u for BP management (2) Enteritis: Status: Acute Problem details: - likely source of nausea and dry heaving - hungry upon arrival to the floor, will start with clears and advance as tolerated - no surgical needs identified at this time (3) CHF (congestive heart failure): Status: Acute Problem details: - clinical concern for CHF given increase in LE edema, elevated BNP - repeat TTE stable per initial technologist read (formal Cardiology read pending) (4) Ascites: Status: Acute Problem details: - new perisplenic ascites on 07/17 imaging - no abnormal liver morphology, reassuring exam - evaluate EF with TTE, follow LFTs (5) Abnormal CT of the chest: Status: Acute Problem details: - Findings from CT 07/17/25: Redemonstrated postoperative changes from partial right pneumonectomy. Slight increase in indeterminate linear consolidation along the right staple line compared to 09/16/2023. Short-term chest CT follow-up is recommended in 3 months. - also on CT: Apparent slight increase in nodularity within the medial basilar left lower lobe, obscured by motion artifact. Recommend close attention on follow-up. (6) Alcohol use disorder: Status: Acute Problem details: - has been drinking 5+ beers/day since March 2025 - last drink 07/15 - monitor CIWAs, prn Ativan (7) Acute hyponatremia: Status: Acute Problem details: - admission Na 126 (has been between 126-140 per chart review) - ddx: increased free water intake during acute illness, ETOH use, CHF - TTE pending, follow sodium and anticipate improvement with po intake, GDMT optimization, will not fluid restrict at this time (8) Acquired hypothyroidism: Status: Acute Problem details: - TSH stable but suppressed, continue replacement at lower dose (125mcg -> 100mcg on 07/17/25), outpatient f/u DS: Summary Hospital Course Hospital Course: Moise was admitted to the hospital on 07/17/2025 for hypertensive urgency; he presented to the emergency room with dyspnea, headache, mild abdominal discomfort, nausea, and dry heaving. Imaging revealed a negative head CT, no obvious acute PE on imaging (small area of indeterminate hypoattenuation and right pulmonary artery, but not seen on abdominal imaging, and no hypoxia); notable postoperative changes from history of right partial pneumonectomy with an indeterminate linear consolidation, and some increased nodularity in the left lower lobe. Repeat chest CT recommended in 3 months Abdomen and pelvis imaging revealed enteritis, new perisplenic ascites, and abnormal configuration of bowel loops in the right upper quadrant without obstruction. History of daily ETOH use (5+ beers/day since March when ), some concern of contributing withdrawal (received intermittent lorazepam with reassuring CIWA scores). Moise was passing gas and able to tolerate a clear liquid diet upon admission, advanced during stay. His home Carvedilol was increased frolm 3.125mg BID -> 6.25mg BID and he tolerated this well. BP improved, headache improved. Initial impression of TTE was reassuring. Stable and requesting discharge home on 07/18/2025, close PCP follow-up recommended to discuss blood pressure management, evaluate alcohol use disorder, discuss repeat chest CT. Status at Discharge Functional status at discharge: independent ambulation Overall status at discharge: patient is progressing back to baseline Time Spent with Patient Time attestation: Total time spent providing and/or coordinating discharge services: Time spent: Greater than 30 minutes Specific discharge activities: Medication reconciliation, patient Education Exam Narrative: Exam Narrative: GEN: Alert and oriented, sitting comfortably in bedside chair, tolerating regular diet HEENT: EOMIs bilaterally, no scleral icterus CV: RRR, No concerning murmurs R: LCTA bilaterally Ab: Soft and nontender, tolerates palpation, negative Mike's sign Ext: wwp, 1+ BLE edema Skin: No concerning skin lesions or rashes on exposed skin Neuro: Nonfocal Psych: Appropriate Const: Vital Signs, click to edit/add: Vital Signs - 24 hr 07/17/25 12:19 07/17/25 12:26 07/17/25 12:30 Temperature 97.4 F L Pulse Rate Pulse Rate [Pulse Oximeter] 83 82 Respiratory Rate 16 Blood Pressure [Le ft Arm] Blood Pressure [Ri ght Arm] 205/115 H 174/117 H 184/120 H Pulse Oximetry 95 Oxygen Delivery Me thod Room Air 07/17/25 13:00 07/17/25 13:37 07/17/25 13:58 Temperature Pulse Rate 80 Pulse Rate [Pulse Oximeter] 81 Respiratory Rate 18 Blood Pressure [Le ft Arm] Blood Pressure [Ri ght Arm] 152/103 H Pulse Oximetry 95 Oxygen Delivery Me thod Room Air 07/17/25 14:07 07/17/25 14:15 07/17/25 15:42 Temperature 98.0 F 97.8 F Pulse Rate Pulse Rate [Pulse Oximeter] 80 78 Respiratory Rate 18 16 Blood Pressure [Le ft Arm] Blood Pressure [Ri ght Arm] 154/109 H 159/118 H Pulse Oximetry 94 95 94 Oxygen Delivery Me thod Room Air Room Air Room Air 07/17/25 15:43 07/17/25 16:44 07/17/25 19:00 Temperature 97.8 F 97.7 F 97.8 F Pulse Rate Pulse Rate [Pulse Oximeter] 78 77 75 Respiratory Rate 16 16 18 Blood Pressure [Le ft Arm] Blood Pressure [Ri ght Arm] 159/118 H 145/109 H 134/94 H Pulse Oximetry 94 94 93 Oxygen Delivery Me thod Room Air Room Air Room Air 07/17/25 22:59 07/17/25 23:00 07/17/25 23:15 Temperature 97.5 F L Pulse Rate 83 Pulse Rate [Pulse Oximeter] 71 71 Respiratory Rate 18 18 Blood Pressure [Le ft Arm] 136/78 Blood Pressure [Ri ght Arm] Pulse Oximetry 93 Oxygen Delivery Me thod Room Air 07/17/25 23:15 07/18/25 04:05 07/18/25 07:00 Temperature 97.5 F L 97.5 F L 97.5 F L Pulse Rate Pulse Rate [Pulse Oximeter] 71 93 93 Respiratory Rate 18 16 16 Blood Pressure [Le ft Arm] 136/78 148/82 H Blood Pressure [Ri ght Arm] 175/115 H Pulse Oximetry 93 94 95 Oxygen Delivery Me thod Room Air Room Air Room Air 07/18/25 07:00 07/18/25 07:00 07/18/25 08:54 Temperature Pulse Rate 71 Pulse Rate [Pulse Oximeter] 93 Respiratory Rate 16 16 Blood Pressure [Le ft Arm] Blood Pressure [Ri ght Arm] Pulse Oximetry 95 Oxygen Delivery Me thod Room Air DS: Data Data Completed and Pending Labs on day of discharge: Labs from last 24 hours 07/18/25 07/17/25 07/17/25 07:26 14:55 10:00 WBC 7.64 RBC 4.57 Hgb 13.4 L Hct 40.3 MCV 88 MCH 29 MCHC 33 RDW Coeff of Frances 13.0 Plt Count 308 Neut % (Auto) 75.0 H Lymph % (Auto) 12.2 L Bucks % (Auto) 10.6 Eos % (Auto) 1.6 Baso % (Auto) 0.5 Neut # (Auto) 5.70 Lymph # (Auto) 0.90 Bucks # (Auto) 0.80 Eos # (Auto) 0.12 Baso # (Auto) 0.04 Abs Immat Gran (auto) 0.01 Imm/Tot Granulo (auto) 0.1 VBG pH 7.459 H VBG pCO2 45 VBG pO2 44.1 VBG HCO3 32 H Sodium 132 L 127 L Potassium 4.1 3.6 Chloride 87 L 86 L Carbon Dioxide 34 H 30 Anion Gap 11 11 BUN 12 11 Creatinine 0.6 0.6 Estimated Creat Clear 78.07 78.07 Estimated GFR 108 108 Glucose 98 103 Calcium 8.6 8.5 Total Bilirubin 0.8 AST 21 ALT 12 Alkaline Phosphatase 81 Total Protein 6.8 Albumin 4.0 TSH 0.674 Discharge Plan Discharge Disposition: Home, Self-Care Date of Admission: 07/17/25 13:10 Attending Provider on Discharge: Lona Gracia Primary Care Provider: Elin Peterson Condition: Improved Anticipated Discharge Date/Time: 07/18/25 11:21 Discharge Medications: New carvedilol 6.25 mg Tablet 6.25 mg PO BID 30 Days Qty: 60 1RF levothyroxine 100 mcg Tablet 100 mcg PO DAILY@0700 Qty: 30 0RF Continued PreserVision AREDS 4,296 mcg-226 mg-90 mg capsule 1 cap PO DAILY simvastatin 20 mg tablet 20 mg PO HS lisinopril 30 mg tablet 30 mg PO HS fluoxetine 20 mg capsule 20 mg PO DAILY aspirin 81 mg tablet,delayed release (DR/EC) 81 mg PO DAILY furosemide 20 mg tablet 20 mg PO DAILY Qty: 90 2RF trazodone 50 mg tablet 50 mg PO QHS PRN (Reason: sleep) Qty: 90 0RF Discontinued carvedilol 3.125 mg tablet 3.125 mg PO BID Qty: 180 0RF levothyroxine 125 mcg tablet 125 mcg PO DAILY Qty: 90 0RF Discharge Orders: Discharge Order (Routine); Ordered 07/18/25 Ordered By: Lona Gracia Additional Instructions: Your blood pressure was too high in the hospital, so we are making the following changes: We are INCREASING your Carvedilol to 6.25mg twice/day (until your new Rx comes from [facility], you can take TWO of your 3.125mg tablets twice/day). We are DECREASING your Levothyroxine to 100mcg daily from 125mcg daily. Continue your furosemide and lisinopril daily Recommend no further alcohol use, as this is likely affecting your blood pressure and certainly worsening your nutritional status. Activity Level: Activity as Tolerated Discharge Diet: Regular Follow Up Appointments: Elin Peterson PA-C [Primary Care Provider, Family Practice] Referral Note: hospital f/u 5-7 days Forms: [facility] Info Instructions
--- NOTE | 2025-07-18 12:57 | PC.NURSE ---
Discharge: patient VSS on RA tolerating a reg. diet. CIWA neg. Ambulating indep in room to BR and up to chair for meals. Patient denies N/V/SOB. Afebrile this shift. Patient discharged to home today at 1221. IV removed tip intact. Discharge paperwork signed and patient verbalized understanding. Patients belongings sheet signed.
== END 2025-07-18 12:21 | disposition home or self-care (01) | DRG 304 ==
LOC: ED 11:03 → MEDSURG 11:51
PROVIDERS: Admitting Provider Family Medicine; Emergency Provider Family Medicine; PCP Physician Assistant Medical; Visit Provider Family Medicine
DX: I16.0 Hypertensive urgency (principal); I50.31 Acute diastolic (congestive) heart failure; E87.1 Hypo-osmolality and hyponatremia; R18.8 Other ascites; F10.20 Alcohol dependence, uncomplicated; I11.0 Hypertensive heart disease with heart failure; K52.9 Noninfective gastroenteritis and colitis, unspecified; R93.89 Abnormal findings on diagnostic imaging of other specified body structures; E78.5 Hyperlipidemia, unspecified; E03.9 Hypothyroidism, unspecified; I77.810 Thoracic aortic ectasia; Z87.891 Personal history of nicotine dependence; Z79.82 Long term (current) use of aspirin; Z79.899 Other long term (current) drug therapy; Z79.52 Long term (current) use of systemic steroids
CPT/HCPCS: 36415; 70450; 71045; 71275; 74177; 80048; 80053; 81001; 82803; 83605; 83735; 83880; 84443; 84484; 85025; 85379; 87631; 93005; 93306; 94761; 99285; A9153; A9270; J1650; J1938; J2060; J2405; Q9967